=== PATIENT | male | born 1960 | race Caucasian/White ===

== ENCOUNTER 2022-10-31 11:30 | Inpatient (IN) | payer SELFPAY ==
[2022-10-31] MEDS ORDERED: ONDANSETRON 4 MG/2 ML VIAL IVP STA (12:17)
[2022-10-31] MEDS ORDERED: SODIUM CHLORIDE 0.9% 500 ML 500 ML IV STA (12:17)
[2022-10-31] MEDS ORDERED: fentaNYL (PF) 50 MCG/ML 2 ML AMP IVP STA ×2 (12:18→15:36)
--- NOTE | 2022-10-31 12:21 | ED ---
Abdominal Pain HPI - General Chief Complaint: Abdominal Pain Stated Complaint: Constipation Time Seen by Provider: 10/31/22 12:12 Source: patient, RN notes reviewed, old records reviewed Mode of arrival: ambulatory Limitations: no limitations - History of Present Illness Initial Comments: Nontoxic-appearing 61-year-old male presents to the emergency room ambulatory with complaints of abdominal pain with nausea since Saturday. Last bowel movement Saturday and states that he normally has a normal bowel movement every day and feels bloated and constipated. Did try Colace with no resolution in his symptoms. Does have chills with nausea now. States that the abdominal pain worse during drive to hospital. Denies any medical history. No medications on a daily basis. No surgeries in the past. MD Complaint: abdominal pain -: days(s) (3) Location: LLQ, RLQ Severity scale (1-10): 8 Quality: fullness Consistency: constant Improves With: nothing Associated Symptoms: nausea, chills, constipation Treatments Prior to Arrival: other (colace) - Related Data Home Medications Medication Instructions Recorded Confirmed No Known Home Medications 10/31/22 10/31/22 Allergies Allergy/AdvReac Type Severity Reaction Status Date / Time No Known Allergies Allergy Verified 10/31/22 16:01 Review of Systems ROS Statement: Those systems with pertinent positive or pertinent negative responses have been documented in the HPI. ROS Other: All systems not noted in ROS Statement are negative. Past Medical History Past Medical History: No Reported History History of Any Multi-Drug Resistant Organisms: None Reported Past Surgical History: No Surgical Hx Reported Past Psychological History: No Psychological Hx Reported Smoking Status: Never smoker Past Alcohol Use History: Occasional Past Drug Use History: None Reported General Exam Limitations: no limitations General appearance: alert, in no apparent distress Head exam: Present: atraumatic, normocephalic Eye exam: Present: normal appearance. Absent: scleral icterus, conjunctival injection, periorbital swelling ENT exam: Present: mucous membranes moist Neck exam: Present: normal inspection, full ROM. Absent: tenderness, meningismus Respiratory exam: Present: normal lung sounds bilaterally. Absent: respiratory distress, accessory muscle use Cardiovascular Exam: Present: tachycardia, irregular rhythm GI/Abdominal exam: Present: soft, distended (bladder, ultrasound of bladder performed by [facility] shows greater than 1000 mL ), tenderness (RLQ LLQ), other. Absent: guarding, rebound, rigid Extremities exam: Present: full ROM, normal capillary refill. Absent: tenderness, pedal edema Back exam: Present: full ROM. Absent: tenderness, CVA tenderness (R), CVA tenderness (L), rash noted Neurological exam: Present: alert, oriented X3, normal gait Psychiatric exam: Present: normal affect, normal mood Skin exam: Present: warm, dry, normal color. Absent: cyanosis, diaphoretic, petechiae, pallor Course Vital Signs 10/31/22 10/31/22 12:04 15:49 Temperature 98 F Pulse Rate 97 125 H Respiratory 16 19 Rate Blood Pressure 163/100 157/108 O2 Sat by Pulse 98 96 Oximetry Medical Decision Making - Medical Decision Making Was pt. sent in by a medical professional or institution ([facility], [facility], urgent care, hospital, or skilled nursing...) When possible be specific @ -[No] Did you speak to anyone other than the patient for history (EMS, parent, family, police, friend...)? What history was obtained from this source @ -[No] Did you review nursing and triage notes (agree or disagree)? Why? @ -[I reviewed and agree with nursing and triage notes] Were old charts reviewed (outside hosp., previous admission, EMS record, old EKG, old radiological studies, urgent care reports/EKG's, skilled nursing records)? Report findings @ -[No old charts were reviewed] Differential Diagnosis (chest pain, altered mental status, abdominal pain women, abdominal pain men, vaginal bleeding, weakness, fever, dyspnea, syncope, headache, dizziness, GI bleed, back pain, seizure, CVA, palpatations, mental health, musculoskeletal)? @ -Differential Abdominal Pain Men: Appendicitis, cholecystitis, diverticulosis, ischemic bowel, pancreatitis, hepatitis, UTI, gastroenteritis, AAA, incarcerated hernia, bowel obstruction, constipation, inflammatory bowel, hepatitis, peptic ulcer disease, splenic infarction, perforated viscus, testicular torsion, this is not meant to be an all-inclusive list EKG interpreted by me (3pts min.). @ -Yes EKG interpreted by me shows atrial flutter with a rapid ventricular rate of 117, QRS 0.91, QTC 0.359. No old EKG to compare. X-rays interpreted by me (1pt min.). @ -[None done] CT interpreted by me (1pt min.). @ -Yes CT shows markedly distended latter. Radiologist interpretation moderate bilateral hydronephrosis with hydroureter and distended bladder. Obstructing etiology not clearly identified. There may be small calcification in the distal left ureter. Free fluid in the retroperitoneal region adjacent to the left renal perinephric fat. U/S interpreted by me (1pt. min.). @ -[None done] What testing was considered but not performed or refused? (CT, X-rays, U/S, labs)? Why? @ -[None] What meds were considered but not given or refused? Why? @ -[None] Did you discuss the management of the patient with other professionals (professionals i.e. , PA, [employer], lab, RT, psych nurse, manager social services, belt weaver, teacher, transport corps officer, protective services case worker)? Give summary @ -[No] Was smoking cessation discussed for >3mins.? @ -[No] Was critical care preformed (if so, how long)? @ -[No] Were there social determinants of health that impacted care today? How? (Homelessness, low income, unemployed, alcoholism, drug addiction, transportation, low edu. Level, literacy, decrease access to med. care, shelter, rehab)? @ -[No] Was there de-escalation of care discussed even if they declined (Discuss DNR or withdrawal of care, Hospice)? DNR status @ -[No] What co-morbidities impacted this encounter? (DM, HTN, Smoking, COPD, CAD, Canc er, CVA, ARF, Chemo, Hep., AIDS, mental health diagnosis, sleep apnea, morbid obesity)? @ -[None] Was patient admitted / discharged? Hospital course, mention meds given and route, prescriptions, significant lab abnormalities, going to OR and other pertinent info. @ -Patient was admitted to the hospital new onset atrial flutter with rapid ve ntricular rate. He was started on Cardizem. Zosyn was started for his abdominal pain and concern for septic kidney stone. Labs show white blood cell count 18 with a left shift. BUN and creatinine 24 and 1.85 consistent with ERROL. Lactic acid 1.3. IV fluids given and zosyn given. EKG shows atrial flutter with rapid ventricular rate. Cardizem was started. Troponin negative at 0.012. Undiagnosed new problem with uncertain prognosis? @ -Atrial flutter with rapid ventricular response Drug Therapy requiring intensive monitoring for toxicity (Heparin, Nitro, Insulin, Cardizem)? @ -Cardizem Were any procedures done? @ -[No] Diagnosis/symptom? @ - Onset atrial flutter with rapid ventricular rate, urinary retention, hydronephrosis with calcification distal left ureter, free fluid in the retroperitoneal Acute, or Chronic, or Acute on Chronic? @ -Acute Uncomplicated (without systemic symptoms) or Complicated (systemic symptoms)? @ -Complicated Side effects of treatment? @ -[No] Exacerbation, Progression, or Severe Exacerbation? @ -[No] Poses a threat to life or bodily function? How? (Chest pain, [place], [place], pneumonia, PE, COPD, DKA, ARF, appy, cholecystitis, CVA, Diverticulitis, Homicidal, Suicidal, threat to staff... and all critical care pts) @ -He has new onset atrial flutter, free fluid in the retroperitoneal, hydronephrosis with concern for septic stone - Lab Data Result diagrams: 10/31/22 12:31 10/31/22 12:31 Lab Results 10/31/22 10/31/22 10/31/22 Range/Units 12:31 12:31 12:31 WBC 18.1 H (3.8-10.6) k/uL RBC 4.94 (4.30-5.90) m/uL Hgb 15.5 (13.0-17.5) gm/dL Hct 46.7 (39.0-53.0) % MCV 94.5 (80.0-100.0) fL MCH 31.4 (25.0-35.0) pg MCHC 33.2 (31.0-37.0) g/dL RDW 12.1 (11.5-15.5) % Plt Count 291 (150-450) k/uL MPV 7.7 Neutrophils % 87 % Lymphocytes % 4 % Monocytes % 8 % Eosinophils % 1 % Basophils % 0 % Neutrophils # 15.7 H (1.3-7.7) k/uL Lymphocytes # 0.7 L (1.0-4.8) k/uL Monocytes # 1.4 H (0-1.0) k/uL Eosinophils # 0.1 (0-0.7) k/uL Basophils # 0.0 (0-0.2) k/uL PT 10.5 (9.0-12.0) sec INR 1.0 (<1.2) APTT 23.3 (22.0-30.0) sec Sodium 136 L (137-145) mmol/L Potassium 4.4 (3.5-5.1) mmol/L Chloride 101 (98-107) mmol/L Carbon Dioxide 27 (22-30) mmol/L Anion Gap 8 mmol/L BUN 24 H (9-20) mg/dL Creatinine 1.85 H (0.66-1.25) mg/dL Est GFR (CKD-EPI)AfAm 45 (>60 ml/min/1.73 sqM) Est GFR (CKD-EPI)NonAf 39 (>60 ml/min/1.73 sqM) Glucose 120 H (74-99) mg/dL Plasma Lactic Acid Juan Francisco (0.7-2.0) mmol/L Calcium 9.6 (8.4-10.2) mg/dL Total Bilirubin 1.1 (0.2-1.3) mg/dL AST 29 (17-59) U/L ALT 19 (4-49) U/L Alkaline Phosphatase 101 (38-126) U/L Troponin I (0.000-0.034) ng/mL Total Protein 7.5 (6.3-8.2) g/dL Albumin 4.4 (3.5-5.0) g/dL Amylase 55 (30-110) U/L Lipase 75 (23-300) U/L 10/31/22 10/31/22 Range/Units 12:31 12:31 WBC (3.8-10.6) k/uL RBC (4.30-5.90) m/uL Hgb (13.0-17.5) gm/dL Hct (39.0-53.0) % MCV (80.0-100.0) fL MCH (25.0-35.0) pg MCHC (31.0-37.0) g/dL RDW (11.5-15.5) % Plt Count (150-450) k/uL MPV Neutrophils % % Lymphocytes % % Monocytes % % Eosinophils % % Basophils % % Neutrophils # (1.3-7.7) k/uL Lymphocytes # (1.0-4.8) k/uL Monocytes # (0-1.0) k/uL Eosinophils # (0-0.7) k/uL Basophils # (0-0.2) k/uL PT (9.0-12.0) sec INR (<1.2) APTT (22.0-30.0) sec Sodium (137-145) mmol/L Potassium (3.5-5.1) mmol/L Chloride (98-107) mmol/L Carbon Dioxide (22-30) mmol/L Anion Gap mmol/L BUN (9-20) mg/dL Creatinine (0.66-1.25) mg/dL Est GFR (CKD-EPI)AfAm (>60 ml/min/1.73 sqM) Est GFR (CKD-EPI)NonAf (>60 ml/min/1.73 sqM) Glucose (74-99) mg/dL Plasma Lactic Acid Juan Francisco 1.3 (0.7-2.0) mmol/L Calcium (8.4-10.2) mg/dL Total Bilirubin (0.2-1.3) mg/dL AST (17-59) U/L ALT (4-49) U/L Alkaline Phosphatase (38-126) U/L Troponin I <0.012 (0.000-0.034) ng/mL Total Protein (6.3-8.2) g/dL Albumin (3.5-5.0) g/dL Amylase (30-110) U/L Lipase (23-300) U/L - EKG Data -: EKG Interpreted by Me (Atrial flutter with ventricular rate of 117, QRS 0.91, QTC 0.359, [place]) Critical Care Time Critical Care Time: Yes Total Critical Care Time: 34 Disposition Clinical Impression: New onset atrial flutter, ERROL (acute kidney injury), Urinary retention Disposition: ADMITTED IP TO THIS [facility] Decision Date: 10/31/22 Decision Time: 15:09
[2022-10-31 12:49] LABS: Basophils % (A) 0 %; Eosinophils # (A) 0.1 k/uL (0-0.7); Eosinophils % (A) 1 %; HCT 46.7 % (39.0-53.0); HGB 15.5 gm/dL (13.0-17.5); Lymphocytes # (A) 0.7 k/uL (1.0-4.8); Lymphocytes % (A) 4 %; MCH 31.4 pg (25.0-35.0); MCHC 33.2 g/dL (31.0-37.0); MCV 94.5 fL (80.0-100.0); Mean Platelet Volume 7.7; Monocytes # (A) 1.4 k/uL (0-1.0); Monocytes % (A) 8 %; Neutrophils # (A) 15.7 k/uL (1.3-7.7); Neutrophils % (A) 87 %; Platelet Count 291 k/uL (150-450); RBC 4.94 m/uL (4.30-5.90); RDW 12.1 % (11.5-15.5); WBC 18.1 k/uL (3.8-10.6)
[2022-10-31 13:01] LABS: Albumin 4.4 g/dL (3.5-5.0); Calcium 9.6 mg/dL (8.4-10.2); Partial Thromboplastin Time 23.3 sec (22.0-30.0); Potassium 4.4 mmol/L (3.5-5.1); Prothrombin Time 10.5 sec (9.0-12.0); Total Bilirubin 1.1 mg/dL (0.2-1.3); Total Protein 7.5 g/dL (6.3-8.2)
[2022-10-31] MEDS ORDERED: PIPERACILLIN-TAZOBACTAM 3.375 GM in SODIUM CHLORIDE 0.9% 100 ML IVPB STA (13:02)
[2022-10-31] MEDS ORDERED: DILTIAZEM 5 MG/ML 5 ML VIAL IVP STA (13:02)
[2022-10-31] MEDS ORDERED: DILTIAZEM 125 MG in SODIUM CHLORIDE 0.9% 100 ML IV SCH (13:15)
--- NOTE | 2022-10-31 14:28 | CT ---
EXAMINATION TYPE: CT abdomen pelvis wo con DATE OF EXAM: 10/31/2022 COMPARISON: None INDICATION: Left lower quadrant pain DLP: 629.4 mGycm, Automated exposure control for dose reduction was used. CONTRAST: 0 mL of Isovue 300. Study performed without Oral Contrast TECHNIQUE: Axial images were obtained from above the diaphragm to the pubic rami in the axial plane a t 5 mm thick sections. Reconstructed images are reviewed on the computer in the coronal plane. FINDINGS: Limited CT sections are obtained the lung bases. The lung bases are clear. CT ABDOMEN: Liver: Normal Spleen: Normal Pancreas: Normal Adrenal glands: The adrenal glands are normal. Gallbladder: Normal Kidneys: No masses are evident. No hydronephrosis is present. There is a 5.5 cm cyst posterior late ral upper pole left kidney. There is moderate left hydronephrosis and hydroureter. Perinephric fluid is inferior to the left kidney. Moderate Right hydronephrosis is evident. No renal stones are identi fied. Aorta: Vascular calcification is within the aorta. Inferior vena cava: Normal. CT PELVIS: Loops of bowel within the abdomen and pelvis are normal. This study is without oral contrast limi ting bowel evaluation. Appendix: Normal as visualized. Urinary bladder: There is marked urinary distention. There is a punctate calcification which may be a t the left ureterovesical junction measuring 0.3 cm. This is difficult to confirm within the ureter a nd may be a phlebolith. Genitourinary structures: Some prosthetic prominence is present. Osseous structures: There is an area of sclerosis along the inferior aspect of the right pubic ramus. Series 201 image 88. Facet changes are within the lumbar spine. IMPRESSIONS: 1. Marked urinary bladder distention. 2. Moderate bilateral hydronephrosis with hydroureter. Obstructing etiology is not clearly identified . There may be a small calcification in the distal left ureter. 3. Free fluid in the retroperitoneal region adjacent to the left renal perinephric fat.
[2022-10-31] MEDS ORDERED: SODIUM CHLORIDE 0.9% 500 ML 500 ML IV ONE (15:08)
[2022-10-31] MEDS ORDERED: SODIUM CHLORIDE 0.9% 1,000 ML IV ONE (15:08)
[2022-10-31] MEDS ORDERED: NALOXONE 0.4 MG/ML 1 ML VIAL IV PRN (15:09)
[2022-10-31] MEDS ORDERED: ACETAMINOPHEN TAB 325 MG TAB PO PRN (15:09)
[2022-10-31 16:09] LABS: Appearance,Urine Clear (Clear); Bilirubin,Urine Negative (Negative); Blood,Urine Small (Negative); Color,Urine Yellow; Glucose,Urine (UA) Negative (Negative); Ketones,Urine Negative (Negative); Leukocyte Esterase,Urine Negative (Negative); Mucus,Urine Rare /hpf; Nitrite,Urine Negative (Negative); Protein,Urine Negative (Negative); RBC,Urine 2 /hpf (0-5); Specific Gravity,Urine 1.008 (1.001-1.035); Urobilinogen,Urine <2.0 mg/dL (<2.0); WBC,Urine 1 /hpf (0-5)
--- NOTE | 2022-10-31 17:02 | P.HPIM ---
History of Present Illness H&P Date: 10/31/22 Patient is a 61-year-old male with no significant past medical history presenting with abdominal discomfort. He claims since Saturday he has not had any bowel movement, and had only trickle of urine. He has also noticed increased lower abdominal discomfort. He denies any nausea or vomiting, chest pain, palpitations, shortness of breath, recent illnesses, recent procedures, fevers or chills. In the ED, temperature was 98, pulse rate 97, respiratory rate 16, blood pressure 163/100, 98% on room air. WBC 18.1, sodium 136, creatinine 1.85, lactate 1.3, troponin negative, lipase 75. Abdomen and pelvis CT shows marked urinary bladder distention, moderate bilateral hydronephrosis with hydroureter, may be a small calcification and distal left ureter, free fluid in the retroperi toneal region adjacent to left renal perinephric fat. EKG consistent with possible atrial tachycardia/atrial flutter. Patient was given IV fluids, Cardizem drip, and IV Zosyn in the ED. Blood cultures and urinalysis pending. Patient being admitted for sepsis likely secondary from urinary tract infection, urinary retention, acute kidney injury, possible atrial flutter. Pertinent positives and negatives as discussed in HPI, a complete review of systems was performed and all other systems are negative. Patient seen and examined at bedside. Vital signs reviewed General: nontoxic, no distress, appears at stated age Derm: warm, dry Head: atraumatic, normocephalic, symmetric Eyes: EOMI, no lid lag, anicteric sclera, pupils equal round reactive to light ENT: Nose and ears atraumatic Neck: No thyromegaly, supple Mouth: no lip lesion, mucus membranes moist Cardiovascular: S1S2 reg, no murmur, no edema Lungs: clear to auscultation bilateral, no rhonchi, no rales, no wheeze, no accessory muscle use Abdominal: soft, nontender to palpation, no guarding, no appreciable organomegaly Ext: no gross muscle atrophy, muscle strength muscle strength 5 out of 5 in all 4 extremities, no contractures Neuro: CN II-XII grossly intact Psych: Alert, oriented, appropriate affect Assessment/Plan: Active: SIRS, possibly in the setting of acute urinary retention Urinary retention Bilateral hydronephrosis with hydroureter Possible renal calculus Possible pyelonephritis Atrial tachycardia/atrial flutter Acute kidney injury -Given IV fluids in the ED, lactate normal -Urinalysis shows negative nitrites and leukocyte esterase -Blood cultures pending, monitor off of antibiotics for now -Urology consult -EKG independently interpreted, more consistent with atrial tachycardia -Patient is currently on Cardizem drip -His heart rate might improve with IV fluids -Cardiology consulted -Acute kidney injury likely in the setting of sepsis and postobstructive uropathy -Continue to monitor urine output and BMP The patient is admitted with an anticipated greater than 2 midnight stay as inpatient status for evaluation of sepsis. Surrogate decision-maker: Sibling CODE STATUS: Full code DVT prophylaxis: Subcu heparin Anticipated discharge date: Pending clinical course Anticipated discharge place: Pending clinical course A total of 65 minutes was spent on the care of this complex patient more than 50% of the time was spent in counseling and care coordination. Past Medical History Past Medical History: No Reported History History of Any Multi-Drug Resistant Organisms: None Reported Past Surgical History: No Surgical Hx Reported Past Psychological History: No Psychological Hx Reported Smoking Status: Never smoker Past Alcohol Use History: Occasional Past Drug Use History: None Reported Medications and Allergies Home Medications Medication Instructions Recorded Confirmed Type No Known Home Medications 10/31/22 10/31/22 History Allergies Allergy/AdvReac Type Severity Reaction Status Date / Time No Known Allergies Allergy Verified 10/31/22 16:01 Physical Exam Vitals: Vital Signs Temp Pulse Resp BP Pulse Ox 10/31/22 12:04 98 F 97 16 163/100 98 Intake and Output 10/31/22 10/31/22 10/31/22 06:59 14:59 22:59 Other: Weight 86.183 kg Results CBC & Chem 7: 10/31/22 12:31 10/31/22 12:31 Labs: Abnormal Lab Results - Last 24 Hours (Table) 10/31/22 10/31/22 Range/Units 12:31 12:31 WBC 18.1 H (3.8-10.6) k/uL Neutrophils # 15.7 H (1.3-7.7) k/uL Lymphocytes # 0.7 L (1.0-4.8) k/uL Monocytes # 1.4 H (0-1.0) k/uL Sodium 136 L (137-145) mmol/L BUN 24 H (9-20) mg/dL Creatinine 1.85 H (0.66-1.25) mg/dL Glucose 120 H (74-99) mg/dL
[2022-10-31] MEDS: SODIUM CHLORIDE 0.9% 1,000 ML IV SCH (19:10)
[2022-10-31] MEDS ORDERED: ASPIRIN 81 MG PO STA (19:59)
[2022-11-01] MEDS: SODIUM CHLORIDE 0.9% 1,000 ML IV SCH ×2 (02:29→16:15)
[2022-11-01 07:37] LABS: Basophils # (A) 0.1 k/uL (0-0.2); Basophils % (A) 0 %; Eosinophils # (A) 0.2 k/uL (0-0.7); Eosinophils % (A) 1 %; HCT 43.8 % (39.0-53.0); Lymphocytes % (A) 8 %; MCH 31.4 pg (25.0-35.0); MCHC 32.1 g/dL (31.0-37.0); MCV 97.8 fL (80.0-100.0); Mean Platelet Volume 7.7; Monocytes # (A) 1.2 k/uL (0-1.0); Monocytes % (A) 10 %; Neutrophils # (A) 9.9 k/uL (1.3-7.7); Neutrophils % (A) 79 %; Platelet Count 231 k/uL (150-450); RBC 4.48 m/uL (4.30-5.90); RDW 12.2 % (11.5-15.5); WBC 12.5 k/uL (3.8-10.6)
[2022-11-01 07:55] LABS: African American GFR (CKD) >90 (>60 ml/min/1.73 sqM); Anion Gap 9 mmol/L; Blood Urea Nitrogen 18 mg/dL (9-20); Calcium 8.4 mg/dL (8.4-10.2); Carbon Dioxide 23 mmol/L (22-30); Chloride 105 mmol/L (98-107); Glucose 92 mg/dL (74-99); Magnesium 1.8 mg/dL (1.6-2.3); Non-African American GFR(CKD) >90 (>60 ml/min/1.73 sqM); Potassium 4.1 mmol/L (3.5-5.1); Sodium 137 mmol/L (137-145)
--- NOTE | 2022-11-01 08:07 | P.GSCN ---
History of Present Illness Consult date: 11/01/22 History of present illness: 61 yo male who came to hospital with abdominal pain. thought he was constipated. Found to be in urine retention with secondary bilateral hydronephrosis. The urine is clear. Cr elevated at 1.8 probably secondary to retention. The patient has not seen a doctor in over 30 years. He has been having problems urinating over the last few months with decreased stream increased frequency. He denies blood in the urine. There's been no incontinence. He has not had a rectal examination years. The patient states there was over 2 L of urine drained from the bladder. Review of Systems All systems: negative - Constitutional Denies fever, Denies weight loss - EENT Eyes: denies blurred vision Ears, nose, mouth and throat: Denies dysphagia - Cardiovascular Denies chest pain, Denies shortness of breath - Respiratory Denies cough, Denies 7 - Gastrointestinal Reports as per HPI - Genitourinary Denies dysuria, Denies hematuria - Integumentary Denies rash, Denies unusual bruising - Neurological Denies headaches, Denies syncope - Hematologic/Lymphatic Denies easy bleeding, Denies easy bruising Past Medical History Past Medical History: No Reported History History of Any Multi-Drug Resistant Organisms: None Reported Past Surgical History: No Surgical Hx Reported Past Psychological History: No Psychological Hx Reported Smoking Status: Never smoker Past Alcohol Use History: Occasional Past Drug Use History: None Reported Medications and Allergies Home Medications Medication Instructions Recorded Confirmed Type No Known Home Medications 10/31/22 10/31/22 History Allergies Allergy/AdvReac Type Severity Reaction Status Date / Time No Known Allergies Allergy Verified 10/31/22 16:01 Surgical - Exam Vital Signs Temp Pulse Resp BP Pulse Ox 98 F 97 16 163/100 98 10/31/22 12:04 10/31/22 12:04 10/31/22 12:04 10/31/22 12:04 10/31/22 12:04 - General well developed, well nourished, no distress - Genitourinary Indwelling catheter with clear urine. Normal testes and epididymis. The prostate is 40/50 g enlarged with a very hard right side worrisome for carcinoma. Results - Labs 11/01/22 06:50 11/01/22 06:50 Abnormal Lab Results - Last 24 Hours (Table) 10/31/22 10/31/2210/31/23 Range/Units 12:31 12:31 15:49 WBC 18.1 H (3.8-10.6) k/uL Neutrophils # 15.7 H (1.3-7.7) k/uL Lymphocytes # 0.7 L (1.0-4.8) k/uL Monocytes # 1.4 H (0-1.0) k/uL Sodium 136 L (137-145) mmol/L BUN 24 H (9-20) mg/dL Creatinine 1.85 H (0.66-1.25) mg/dL Glucose 120 H (74-99) mg/dL Urine Blood Small H (Negative) Urine Mucus Rare H (None) /hpf Diabetes panel 10/31/22 Range/Units 12:31 Sodium 136 L (137-145) mmol/L Potassium 4.4 (3.5-5.1) mmol/L Chloride 101 (98-107) mmol/L Carbon Dioxide 27 (22-30) mmol/L BUN 24 H (9-20) mg/dL Creatinine 1.85 H (0.66-1.25) mg/dL Glucose 120 H (74-99) mg/dL Calcium 9.6 (8.4-10.2) mg/dL AST 29 (17-59) U/L ALT 19 (4-49) U/L Alkaline Phosphatase 101 (38-126) U/L Total Protein 7.5 (6.3-8.2) g/dL Albumin 4.4 (3.5-5.0) g/dL Calcium panel 10/31/22 Range/Units 12:31 Calcium 9.6 (8.4-10.2) mg/dL Albumin 4.4 (3.5-5.0) g/dL Pituitary panel 10/31/22 Range/Units 12:31 Sodium 136 L (137-145) mmol/L Potassium 4.4 (3.5-5.1) mmol/L Chloride 101 (98-107) mmol/L Carbon Dioxide 27 (22-30) mmol/L BUN 24 H (9-20) mg/dL Creatinine 1.85 H (0.66-1.25) mg/dL Glucose 120 H (74-99) mg/dL Calcium 9.6 (8.4-10.2) mg/dL Adrenal panel 10/31/22 Range/Units 12:31 Sodium 136 L (137-145) mmol/L Potassium 4.4 (3.5-5.1) mmol/L Chloride 101 (98-107) mmol/L Carbon Dioxide 27 (22-30) mmol/L BUN 24 H (9-20) mg/dL Creatinine 1.85 H (0.66-1.25) mg/dL Glucose 120 H (74-99) mg/dL Calcium 9.6 (8.4-10.2) mg/dL Total Bilirubin 1.1 (0.2-1.3) mg/dL AST 29 (17-59) U/L ALT 19 (4-49) U/L Alkaline Phosphatase 101 (38-126) U/L Total Protein 7.5 (6.3-8.2) g/dL Albumin 4.4 (3.5-5.0) g/dL - Imaging CT scan - abdomen: report reviewed, image reviewed CT scan - pelvis: report reviewed, image reviewed Assessment and Plan Assessment: Impression: Urinary retention. Bilateral hydronephrosis secondary to urine retention. Prostate examination worrisome for prostate cancer. Cardiac arrhythmia. Acute renal failure due to urine retention. Recommendations: I will obtain a PSA. He'll be started on tamsulosin. A voiding trial can be done in 48 hours to 1 week depending on his status. He is very anxious to leave the hospital as he has social issues however I did explain to him there is concern for cardiac issues level of his prostate problems which she'll probably eventually need an ultrasound and biopsy of the prostate. I will follow the patient with you.
[2022-11-01] MEDS: TAMSULOSIN 0.4 MG CAP.ER.24H PO SCH (08:19)
[2022-11-01] MEDS: METOPROLOL SUCCINATE (ER) 50 MG TAB.ER.24H PO SCH (10:43)
--- NOTE | 2022-11-01 13:17 | P.CRDCN ---
History of Present Illness Consult date: 11/01/22 Consult reason: atrial flutter History of present illness: History of present illness: This is a 61 year old male with no previous medical history, has not followed with a doctor in over 30 years. Patient states he came into the hospital due to inability to have a bowel movement or urinate with onset of problems starting Saturday. He states he has had a few episodes over the years with urinary retention but it's only briefly lasted and resolved on its own. Patient had Adams catheter placed with return of 2 L of urine. He was found to have a blood pressure of 163/100 on initial presentation and there was concern the patient had atrial flutter on EKG. Patient denies having any chest pain, no shortness of breath, no cardiac history. He has never been seen by astronomy teacher. He states he is very active and is currently remodeling a home and up and down stairs throughout the day. Patient has been started on Cardizem drip and a heart rate is now 78-92. EKG atrial fibrillation CAT scan of the abdomen and pelvis without contrast revealed urinary bladder distention, moderate bilateral hydronephrosis with hydroureter oh. Obstructing etiology is not clearly identified. Small calcification in the distal left ureter. Free fluid in the retroperitoneal region adjacent to the left renal. Nephric fat. WBC initially 18.1 now 12.5, hemoglobin 14, platelet count 231. Electrolytes and renal function are now normal. Patient presented with a BUN 24 and creatinine 1.85. Troponin negative 1. TSH 1.51. Liver function tests are nor mal. Urinalysis shows small amount of ketones and rare mucus. Home cardiac medications: None Review Of Systems: At the time of my evaluation: Constitutional: No fever, no chills. No weakness, fatigue or lethargy. EENT: No headache. No dizziness. Lungs: No shortness of breath, cough, no sputum production. No wheezing. Cardiovascular: No chest pain, no lower extremity edema. No palpitations. No paroxysmal nocturnal dyspnea. No orthopnea. No lightheadedness or dizziness. No syncopal episodes. Abdominal: No abdominal pain. No nausea, vomiting. No diarrhea. No constipation. No bloody or tarry stools. Genitourinary: No dysuria reported urinary retention-Adams. Musculoskeletal: No myalgias. No muscle weakness, no frequent falls. No back pain. No neck pain. Integumentary: No wounds. No rash. No unusual bruising. Neurologic: No aphasia. No facial droop. No change in mentation. No head injury. No headache. Physical examination: Gen: This is a 61-year-old male patient resting on ER stretcher. He appears to be in no acute distress. VS: reviewed HEENT: Head is atraumatic, normocephalic. Pupils equal, round. Sclerae is anicteric. NECK: Supple. No JVD. . LUNGS: Clear to auscultation. No wheezes or rhonchi. No intercostal retractions. HEART: Regular rate and rhythm. No murmur. ABDOMEN: Soft No tenderness. Adams catheter with clear jose urine. EXTREMITIES: No pedal edema. No calf tenderness. NEUROLOGICAL: Patient is awake, alert and oriented x3. Assessment: Atrial fibrillation presented with RVR Hypertension possibly related to urinary retention Leukocytosis Acute kidney injury secondary to obstructive uropathy Plan: Discontinue Cardizem drip and start patient on Toprol-XL 50 mg daily Monitor heart rate/telemetry Obtain 2-D echocardiogram and Doppler study to assess cardiac structure and function Further recommendations to follow based upon clinical course Thank you kindly for this consultation. Nurse practitioner note has been reviewed, I agree with documented findings and plan of care. Patient was seen and examined. Past Medical History Past Medical History: No Reported History History of Any Multi-Drug Resistant Organisms: None Reported Past Surgical History: No Surgical Hx Reported Past Psychological History: No Psychological Hx Reported Smoking Status: Never smoker Past Alcohol Use History: Occasional Past Drug Use History: None Reported Medications and Allergies Home Medications Medication Instructions Recorded Confirmed Type No Known Home Medications 10/31/22 10/31/22 History Allergies Allergy/AdvReac Type Severity Reaction Status Date / Time No Known Allergies Allergy Verified 10/31/22 16:01 Physical Exam Vitals: Vital Signs Temp Pulse Resp BP Pulse Ox 11/01/22 06:00 78 18 107/67 94 L 11/01/22 05:00 80 17 98/68 93 L 11/01/22 04:00 88 17 91/65 94 L 11/01/22 03:30 81 15 101/68 95 11/01/22 03:00 93 16 97/63 93 L 11/01/22 02:30 89 16 104/67 94 L 11/01/22 02:00 97 14 107/72 96 11/01/22 01:30 92 18 99/62 92 L 11/01/22 01:00 98 21 111/64 94 L 11/01/22 00:30 109 H 19 105/67 94 L 11/01/22 00:00 84 18 103/68 96 10/31/22 23:30 97 16 118/69 95 10/31/22 23:00 101 H 20 113/66 94 L 10/31/22 22:30 100 16 108/70 93 L 10/31/22 22:00 93 18 109/69 96 10/31/22 21:30 105 H 16 108/77 94 L 10/31/22 21:00 96 19 120/73 96 10/31/22 20:30 101 H 18 119/73 98 10/31/22 20:21 97 17 102/56 96 10/31/22 20:20 102 H 19 102/56 96 10/31/22 20:10 106 H 19 118/74 97 10/31/22 20:00 109 H 18 118/69 97 10/31/22 19:36 91 16 122/86 97 10/31/22 19:35 98 18 122/86 97 10/31/22 15:49 125 H 19 157/108 96 10/31/22 12:04 98 F 97 16 163/100 98 Intake and Output 10/31/22 11/01/22 11/01/22 22:59 06:59 14:59 Output Total 1025 Balance -1025 Output: Urine 1025 Results 11/01/22 06:50 11/01/22 06:50 Cardiac Enzymes 10/31/22 10/31/22 Range/Units 12:31 12:31 AST 29 (17-59) U/L Troponin I <0.012 (0.000-0.034) ng/mL Coagulation 10/31/22 Range/Units 12:31 PT 10.5 (9.0-12.0) sec APTT 23.3 (22.0-30.0) sec CBC 10/31/22 11/01/22 Range/Units 12:31 06:50 WBC 18.1 H 12.5 H (3.8-10.6) k/uL RBC 4.94 4.48 (4.30-5.90) m/uL Hgb 15.5 14.0 (13.0-17.5) gm/dL Hct 46.7 43.8 (39.0-53.0) % Plt Count 291 231 (150-450) k/uL Comprehensive Metabolic Panel 10/31/22 11/01/22 Range/Units 12:31 06:50 Sodium 136 L 137 (137-145) mmol/L Potassium 4.4 4.1 (3.5-5.1) mmol/L Chloride 101 105 (98-107) mmol/L Carbon Dioxide 27 23 (22-30) mmol/L BUN 24 H 18 (9-20) mg/dL Creatinine 1.85 H 0.78 (0.66-1.25) mg/dL Glucose 120 H 92 (74-99) mg/dL Calcium 9.6 8.4 (8.4-10.2) mg/dL AST 29 (17-59) U/L ALT 19 (4-49) U/L Alkaline Phosphatase 101 (38-126) U/L Total Protein 7.5 (6.3-8.2) g/dL Albumin 4.4 (3.5-5.0) g/dL Current Medications Generic Name Dose Route Start Last Admin Trade Name Freq PRN Reason Stop Dose Admin Acetaminophen 650 mg 10/31/22 15:09 Acetaminophen Tab 325 Mg Tab PO Q6HR PRN Mild Pain or Fever > 100.5 Diltiazem HCl 125 mg/ Sodium 125 mls @ 5 mls/hr 10/31/22 13:15 10/31/22 14:16 Chloride IV 5 mg/hr .Q24H ALEKS 5 mls/hr Administration 5 MG/HR Sodium Chloride 1,000 mls @ 75 mls/hr 10/31/22 13:30 11/01/22 02:29 Saline 0.9% IV Not Given .[id number] ALEKS Naloxone HCl 0.2 mg 10/31/22 15:09 Naloxone 0.4 Mg/Ml 1 Ml Vial IV Q2M PRN Opioid Reversal Tamsulosin HCl 0.4 mg 11/01/22 08:30 11/01/22 08:19 Tamsulosin 0.4 Mg Cap.Er.24h PO 0.4 mg PC-BRKFST ALEKS Administration Intake and Output 10/31/22 11/01/22 11/01/22 22:59 06:59 14:59 Output Total 1025 Balance -1025 Output: Urine 1025 11/01/22 06:50 11/01/22 06:50
--- NOTE | 2022-11-01 14:26 | P.PN ---
Subjective Progress Note Date: 11/01/22 Hospital Course: 61-year-old male with no significant past medical history presenting with abdominal discomfort. He claims since Saturday he has not had any bowel movement, and had only trickle of urine. In the ED, temperature was 98, pulse rate 97, respiratory rate 16, blood pressure 163/100, 98% on room air. WBC 18.1, sodium 136, creatinine 1.85, lactate 1.3, troponin negative, lipase 75. Abdomen and pelvis CT shows marked urinary bladder distention, moderate bilateral hydronephr osis with hydroureter, may be a small calcification and distal left ureter, free fluid in the retroperitoneal region adjacent to left renal perinephric fat. EKG consistent with possible atrial tachycardia/atrial flutter. Patient was given IV fluids, Cardizem drip, and IV Zosyn in the ED. Patient being admitted for sepsis likely secondary from urinary tract infection, urinary retention, acute kidney injury, possible atrial flutter. Urology and cardiology consulted. Urology urology concerned about prostate cancer. Cardiology also consulted. Likely atrial fibrillation with RVR. Cardizem discontinued, started on metoprolol. Echocardiogram pending. Subjective: Seen and examined at bedside. Currently has a urinary catheter in place. Abdominal discomfort improved. Denies any chest pain, shortness of breath. Pertinent positives and negatives as discussed above, a complete review of systems was performed and all other systems are negative. Vitals Signs Reviewed. General: nontoxic, no distress, appears at stated age Derm: warm, dry Head: atraumatic, normocephalic, symmetric Eyes: EOMI, no lid lag, anicteric sclera Mouth: no lip lesion, mucus membranes moist Cardiovascular: S1S2 irregular, no murmur Lungs: CTA bilateral, no rhonchi, no rales , no accessory muscle use Abdominal: soft, nontender to palpation, no guarding, no appreciable organomegaly Ext: no gross muscle atrophy, no edema, no contractures Neuro: CN II-XI grossly intact, no focal neuro deficits Psych: Alert, oriented, appropriate affect Data Reviewed Today: Pertinent Labs: WBC 12.5, creatinine 0.78, magnesium 1.8, TSH 1.5 Assessment and Plan: Active: Acute Urinary retention Bilateral hydronephrosis with hydroureter Enlarged prostate Atrial fibrillation with RVR -Urology note reviewed, prostrate exam worrisome for breast cancer, started on tamsulosin warding trial can be done in 48 hours to 1 week, likely needed ultrasound and biopsy of prostrate as outpatient. -Cardiology note reviewed, patient started on metoprolol, diltiazem drip discontinued, echocardiogram pending Resolved: Acute kidney injury SIRS DVT ppx: Subcu heparin Code status: Full code Anticipated discharge place: Home Anticipated discharge time: 1-2 days Objective - Vital Signs Vital signs: Vital Signs Temp 98 F 10/31/22 12:04 Pulse 92 11/01/22 10:41 Resp 18 11/01/22 10:41 BP 104/66 11/01/22 10:41 Pulse Ox 96 11/01/22 10:41 FiO2 Intake & Output 10/31/22 11/01/22 11/01/22 18:59 06:59 18:59 Output Total 1025 Balance -1025 Weight 86.183 kg Output: Urine 1025 - Labs CBC & Chem 7: 11/01/22 06:50 11/01/22 06:50 Labs: Abnormal Lab Results - Last 24 Hours (Table) 10/31/22 11/01/22 Range/Units 15:49 06:50 WBC 12.5 H (3.8-10.6) k/uL Neutrophils # 9.9 H (1.3-7.7) k/uL Monocytes # 1.2 H (0-1.0) k/uL Urine Blood Small H (Negative) Urine Mucus Rare H (None) /hpf
--- NOTE | 2022-11-02 07:36 | CA ---
Transthoracic Echo Report Name: Sebastian Melchor Age: 61 Gender: M : 1960 Exam Date: 11/01/2022 12:54 Exam Location: [facility] Ht (in): 72 Wt (lb): 190 Ordering Physician: Bridgette Chung Attending/Referring Phys: Foundry Superintendant Aiden Sheehan RDCS Procedure CPT: Indications: LVF Cardiac Hx: Technical Quality: Fair Contrast 1: Total Dose (mL): Contrast 2: Total Dose (mL): MEASUREMENTS (Male / Female) Normal Values 2D ECHO LV Diastolic Diameter PLAX 4.3 cm 4.2 - 5.9 / 3.9 - 5.3 cm LV Systolic Diameter PLAX 3.4 cm LV Fractional Shortening PLAX 20.5 % IVS Diastolic Thickness 0.9 cm 0.6 - 1.0 / 0.6 - 0.9 cm IVS Systolic Thickness 1.2 cm LVPW Diastolic Thickness 0.8 cm 0.6 - 1.0 / 0.6 - 0.9 cm LVPW Systolic Thickness 1.5 cm LV Relative Wall Thickness 0.4 LVOT Diameter 2.2 cm LA Systolic Diameter LX 3.0 cm 3.0 - 4.0 / 2.7 - 3.8 cm LV Diastolic Volume MOD BP 106.3 cm??? 67 - 155 / 56 - 104 cm??? LV Systolic Volume MOD BP 61.0 cm??? 22 - 58 / 19 - 49 cm??? LV Ejection Fraction MOD BP 42.6 % >= 55 % LV Stroke Volume MOD BP 45.3 cm??? LV Diastolic Volume MOD 4C 96.9 cm??? LV Systolic Volume MOD 4C 53.3 cm??? LV Ejection Fraction MOD 4C 45.0 % LV Stroke Volume MOD 4C 43.7 cm??? LV Diastolic Length 4C 8.7 cm LV Systolic Length 4C 7.2 cm LV Diastolic Volume MOD 2C 116.3 cm??? LV Systolic Volume MOD 2C 63.7 cm??? LV Ejection Fraction MOD 2C 45.2 % LV Stroke Volume MOD 2C 52.6 cm??? LV Diastolic Length 2C 8.8 cm LV Systolic Length 2C 8.0 cm M-MODE Aortic Root Diameter MM 3.6 cm LA Systolic Diameter MM 4.4 cm LA Ao Ratio MM 1.2 MV E Point Septal Separation 1.4 cm AV Cusp Separation MM 2.0 cm DOPPLER AV Peak Velocity 94.7 cm/s AV Peak Gradient 3.6 mmHg MV E' Velocity 5.6 cm/s TR Peak Velocity 208.6 cm/s TR Peak Gradient 17.4 mmHg Right Ventricular Systolic Press 27.4 mmHg PV Peak Velocity 70.6 cm/s PV Peak Gradient 2.0 mmHg FINDINGS Left Ventricle Left ventricular ejection fraction is estimated at 40 %. Abnormal left ventricular diastolic filling pattern. Reduced global left ventricular systolic function. Right Ventricle Mild right ventricular dilatation. RVSP_ 27 mm Hg. Right Atrium Mild right atrial dilatation. Left Atrium Normal left atrial size. Mitral Valve Structurally normal mitral valve. No mitral stenosis, regurgitation or prolapse. Aortic Valve Trileaflet aortic valve. Diffuse thickening (sclerosis) of the aortic valve cusps without reduced excursion. No aortic regurgitation. No aortic stenosis. Tricuspid Valve Mild tricuspid regurgitation. Pulmonic Valve Pulmonic valve not well visualized. Pericardium Normal pericardium. No pericardial effusion. Aorta Mild aortic dilatation at the level of the sinuses of valsalva (root). CONCLUSIONS Left ventricular ejection fraction 40% RVSP 27 No mitral regurgitation Mild tricuspid regurgitation No pericardial effusion Previewed by: Dr. Ant Wilkins DO (Electronically Signed) Final Date: 02 Nov 2022 07:35
--- NOTE | 2022-11-02 08:07 | P.PN ---
Subjective Progress Note Date: 11/02/22 The patient is in the hospital with abdominal pain which is resolved once the catheter was placed. He is found to over 2 L of urine retention. He feels much better. His prostate was found to be quite enlarged and very hard worrisome for prostate cancer. PSA is ordered but has not been done as of yet Objective - Vital Signs Vital signs: Vital Signs Temp 98.2 F 11/02/22 04:00 Pulse 96 11/02/22 04:00 Resp 18 11/02/22 04:00 BP 111/68 11/02/22 04:00 Pulse Ox 96 11/02/22 04:00 FiO2 Intake & Output 11/01/22 11/02/22 11/02/22 18:59 06:59 18:59 Intake Total 120 Output Total 1400 1350 Balance -1280 -1350 Weight 86.183 kg Intake: Oral 120 Output: Urine 1400 1350 Other: Voiding Method Indwelling Catheter Indwelling Catheter # Voids 1 - Labs CBC & Chem 7: 11/01/22 06:50 11/01/22 06:50 Assessment and Plan Assessment: Impression: Urine retention causing abdominal pain resolved. Cardiac arrhythmia being evaluated. Recommendations: If the patient goes home he should go home with indwelling catheter. I spoken with the nurse to make sure the PSA gets done prior to discharge.. Depending on the level of the PSA as to how I might manage his urine retention. I suspect he has prostate cancer and will need an ultrasound biopsy to clarify that. Is been discussed with the patient.
[2022-11-02] MEDS: TAMSULOSIN 0.4 MG CAP.ER.24H PO SCH (08:41)
[2022-11-02] MEDS: METOPROLOL SUCCINATE (ER) 50 MG TAB.ER.24H PO SCH (08:41)
[2022-11-02 08:47] VITALS: TEMP 97.9
[2022-11-02 11:51] VITALS: BP 110/78; PULSE 96; RESP 16
[2022-11-02] MEDS ORDERED: METOPROLOL SUCCINATE (ER) 25 MG TAB.ER.24H PO STA (11:51)
--- NOTE | 2022-11-02 12:18 | P.PN ---
Subjective Progress Note Date: 11/02/22 History of present illness: This is a 61 year old male with no previous medical history, has not followed with a doctor in over 30 years. Patient states he came into the hospital due to inability to have a bowel movement or urinate with onset of problems starting Saturday. He states he has had a few episodes over the years with urinary retention but it's only briefly lasted and resolved on its own. Patient had Adams catheter placed with return of 2 L of urine. He was found to have a blood pressure of 163/100 on initial presentation and there was concern the patient had atrial flutter on EKG. Patient denies having any chest pain, no shortness of breath, no cardiac history. He has never been seen by security escort. He states he is very active and is currently remodeling a home and up and down s tairs throughout the day. Patient has been started on Cardizem drip and a heart rate is now 78-92. EKG atrial fibrillation CAT scan of the abdomen and pelvis without contrast revealed urinary bladder distention, moderate bilateral hydronephrosis with hydroureter oh. Obstructing etiology is not clearly identified. Small calcification in the distal left ureter. Free fluid in the retroperitoneal region adjacent to the left renal. Nephric fat. WBC initially 18.1 now 12.5, hemoglobin 14, platelet count 231. Electrolytes and renal function are now normal. Patient presented with a BUN 24 and creatinine 1.85. Troponin negative 1. TSH 1.51. Liver function tests are normal. Urinalysis shows small amount of ketones and rare mucus. Home cardiac medications: None 11/02 Patient is seen today in follow-up. Patient is maintained on Toprol-XL 50 mg and heart rate is running 100 106. He denies having any chest pain or shortness of breath. Telemetry atrial fibrillation low 100s. Echocardiogram reveals EF of 40%, RVSP 27, no mitral regurgitation, mild tricuspid regurgitation, no pericardial effusion. Physical examination: Gen: This is a 61-year-old male patient resting in chair. He appears to be in no acute distress. VS: reviewed HEENT: Head is atraumatic, normocephalic. Pupils equal, round. Sclerae is anicteric. NECK: Supple. No JVD. . LUNGS: Clear to auscultation. No wheezes or rhonchi. No intercostal retractions. HEART: Regular rate and rhythm. No murmur. ABDOMEN: Soft No tenderness. Adams catheter with clear jose urine. EXTREMITIES: No pedal edema. No calf tenderness. NEUROLOGICAL: Patient is awake, alert and oriented x3. Assessment: Atrial fibrillation presented with RVR, possible paroxysmal, unknown how long patient has been in atrial fibrillation Hypertension possibly related to urinary retention Leukocytosis Acute kidney injury secondary to obstructive uropathy Possible prostate cancer being worked up by urology Plan: Continue patient on Toprol-XL and increase to 75 mg daily Regarding anticoagulation, patient will be started on eliquis 5 mg twice daily Obtain lipid panel and A1c Patient will follow-up with Dr. Ibrahim in the office in one week. Is cleared for discharge from cardiology. Nurse practitioner note has been reviewed, I agree with documented findings and plan of care. Patient was seen and examined. Objective - Vital Signs Vital signs: Vital Signs Temp 97.9 F 11/02/22 08:47 Pulse 106 H 11/02/22 08:47 Resp 17 11/02/22 08:47 BP 108/66 11/02/22 08:47 Pulse Ox 97 11/02/22 08:47 FiO2 Intake & Output 11/01/22 11/02/22 11/02/22 18:59 06:59 18:59 Intake Total 120 118 Output Total 1400 1350 Balance -1280 -1350 118 Weight 86.183 kg Intake: Oral 120 118 Output: Urine 1400 1350 Other: Voiding Method Indwelling Catheter Indwelling Catheter Indwelling Catheter # Voids 1 - Labs CBC & Chem 7: 11/01/22 06:50 11/01/22 06:50 Labs: Microbiology - Last 24 Hours (Table) 10/31/22 13:37 Blood Culture - Preliminary Blood 10/31/22 13:42 Blood Culture - Preliminary Blood
--- NOTE | 2022-11-02 12:34 | P.DS ---
Providers Date of admission: 10/31/22 15:00 Expected date of discharge: 11/02/22 Attending physician: Reji Casey MD Consults: 10/31/22 15:09 Consult Physician Routine Consulting Provider: Eder Green Consult Reason/Comments: urinary retention, hydronephrosis, ERROL Do you want consulting provider notified?: Yes, Notify in am 10/31/22 16:57 Consult Physician Routine Consulting Provider: Kyle Cano Consult Reason/Comments: possible atrial flutter Do you want consulting provider notified?: Yes Primary care physician: Stated None Hospital Course: Discharge Diagnosis: Acute Urinary retention Bilateral hydronephrosis with hydroureter Enlarged prostate SIRS, without infection Atrial fibrillation with RVR Mild systolic heart failure Hospital Course: 61-year-old male with no significant past medical history presenting with abdominal discomfort. He claims since Saturday he has not had any bowel movement, and had only trickle of urine. In the ED, temperature was 98, pulse rate 97, respiratory rate 16, blood pressure 163/100, 98% on room air. WBC 18.1, sodium 136, creatinine 1.85, lactate 1.3, troponin negative, lipase 75. Abdomen and pelvis CT shows marked urinary bladder distention, moderate bilateral hydronephrosis with hydroureter, may be a small calcification and distal left ureter, free fluid in the retroperitoneal region adjacent to left renal perinephric fat. EKG consistent with possible atrial tachycardia/atrial flutter. Patient was given IV fluids, Cardizem drip, and IV Zosyn in the ED. Patient being admitted for sepsis likely secondary from urinary tract infection, urinary retention, acute kidney injury, possible atrial flutter. Urology and cardiology consulted. Urology urology concerned about prostate cancer. Patient to be discharged with Adams catheter. PSA level still pending. Patient follow- up with urology outpatient. Cardiology also consulted. Likely atrial fibrillation with RVR. Cardizem discontinued, started on metoprolol. Echocardiogram showed mildly reduced LVEF of 40%, RVSP 27. Patient being discharged on metoprolol succinate, and also low-dose of lisinopril. He is also being discharged on Eliquis. He will also follow-up with cardiology. Patient seen and examined at bedside. Vital signs reviewed and stable. General: nontoxic, no distress, appears at stated age Derm: warm, dry Head: atraumatic, normocephalic, symmetric Eyes: EOMI, no lid lag, anicteric sclera Mouth: no lip lesion, mucus membranes moist Cardiovascular: S1S2 reg, no murmur Lungs: CTA bilateral, no rhonchi, no rales , no accessory muscle use Abdominal: soft, nontender to palpation, no guarding, no appreciable organomegaly Ext: no gross muscle atrophy, no edema, no contractures Neuro: CN II-XI grossly intact, no focal neuro deficits Psych: Alert, oriented, appropriate affect A total of 36 minutes of time were spent preparing this complex discharge summary. Patient was discharged on 11/02/22 at 12:26. Patient Condition at Discharge: Stable Plan - Discharge Summary Discharge Rx Participant: No New Discharge Prescriptions: New Apixaban [Eliquis] 5 mg PO BID #60 tab Tamsulosin [Flomax] 0.4 mg PO PC-BRKFST #60 cap Metoprolol Succinate (ER) [Toprol XL] 75 mg PO DAILY #60 tab lisinopriL 2.5 mg PO DAILY #30 tablet Discharge Medication List Apixaban [Eliquis] 5 mg PO BID #60 tab 11/02/22 [Rx] Metoprolol Succinate (ER) [Toprol XL] 75 mg PO DAILY #60 tab 11/02/22 [Rx] Tamsulosin [Flomax] 0.4 mg PO PC-BRKFST #60 cap 11/02/22 [Rx] lisinopriL 2.5 mg PO DAILY #30 tablet 11/02/22 [Rx] Follow up Appointment(s)/Referral(s): Angelo Ibrahim MD [STAFF PHYSICIAN] - 1 Week None,Stated [Primary Care Provider] - 1-2 days Eder Green MD [STAFF PHYSICIAN] - 1 Week Patient Instructions/Handouts: A-fib (Atrial Fibrillation) (DC), Acute Kidney Injury (DC), Urinary Retention in Men (ED) Discharge Disposition: HOME SELF-CARE
[2022-11-02 15:14] LABS: Chol/HDL Ratio 3.14 Ratio; LDL Cholesterol,Calculated 88.6 mg/dL (0.0-131.0); VLDL Calculation 16.42 mg/dL (5.00-40.00)
[2022-11-02] MEDS ORDERED: APIXABAN 5 MG TAB PO SCH (21:00)
[2022-11-03] MEDS ORDERED: METOPROLOL SUCCINATE (ER) 25 MG TAB.ER.24H PO SCH (09:00)
== END 2022-11-02 15:26 | disposition home or self-care (01) | DRG 872 ==
LOC: EDBD 11:30 → EC 11:30 → 3SCARD 15:00
PROVIDERS: ADMIT Student in an Organized Health Care Education/Training Program; ATTEND Student in an Organized Health Care Education/Training Program
DX: A41.9 Sepsis, unspecified organism (principal); N13.6 Pyonephrosis; I48.92 Unspecified atrial flutter; I50.22 Chronic systolic (congestive) heart failure; I47.1 Supraventricular tachycardia; N17.9 Acute kidney failure, unspecified; I48.91 Unspecified atrial fibrillation; I11.0 Hypertensive heart disease with heart failure; N40.0 Benign prostatic hyperplasia without lower urinary tract symptoms; I77.810 Thoracic aortic ectasia; R33.8 Other retention of urine; F10.20 Alcohol dependence, uncomplicated; I48.0 Paroxysmal atrial fibrillation; I08.1 Rheumatic disorders of both mitral and tricuspid valves; Z85.3 Personal history of malignant neoplasm of breast
CPT/HCPCS: 36415; 74176; 80048; 80053; 80061; 81001; 82150; 83036; 83605; 83690; 83735; 84153; 84154; 84443; 84484; 85025; 85610; 85730; 93005; 93306

== ENCOUNTER → 2023-01-10 | Outpatient (CLI) | payer MEDICAID ==
--- NOTE | 2023-01-10 07:53 | XR ---
EXAMINATION TYPE: XR chest 2V DATE OF EXAM: 01/10/2023 7:47 AM COMPARISON: No direct comparisons TECHNIQUE: XR chest 2V Frontal and lateral views of the chest. CLINICAL INDICATION:Male, 62 years old with history of C61 prostate ca; FINDINGS: Lungs/Pleura: There is no evidence of pleural effusion, focal consolidation, or pneumothorax. Hyperi nflation with flattening of the diaphragm. Pulmonary vascularity: Unremarkable. Heart/mediastinum: Cardiomediastinal silhouette is unremarkable. Musculoskeletal: No acute osseous pathology. Chronic appearing mild anterior wedging of the midthorac ic spine. IMPRESSION: 1. No acute cardiopulmonary disease/process. 2. Chronic appearing mild anterior wedging of the midthoracic spine. 3. Possible COPD changes.
[2023-01-10 08:41] LABS: African American GFR (CKD) >90 (>60 ml/min/1.73 sqM); Blood Urea Nitrogen 21 mg/dL (9-20); Non-African American GFR(CKD) >90 (>60 ml/min/1.73 sqM)
--- NOTE | 2023-01-10 10:19 | CT ---
EXAMINATION TYPE: CT abdomen pelvis w con CT DLP: 804.4 mGycm, Automated exposure control for dose reduction was used. DATE OF EXAM: 01/10/2023 10:06 AM COMPARISON: CT abdomen pelvis most recent from 10/31/2022. CLINICAL INDICATION:Male, 62 years old with history of C61 prostate ca; Follow up for prostate cancer . TECHNIQUE: Standard CT of the abdomen and pelvis following the administration of 100 cc of Isovue 3 00 IV contrast material and oral contrast. Coronal and sagittal reformats were performed. FINDINGS: LOWER CHEST: Unremarkable ABDOMEN LIVER: Peripherally enhancing right hepatic lobe 2.6 cm hypodense lesion (series 3, image 14). GALLBLADDER AND BILE DUCTS: Unremarkable. PANCREAS: Unremarkable. SPLEEN: Unremarkable. ADRENAL GLANDS: Unremarkable. KIDNEYS AND URETERS: No evidence of hydronephrosis or renal calculus. Kidneys enhance symmetrically. Bilateral renal cysts with largest in the superior pole of the left kidney measuring up to 5.6 cm. Co ntrast demonstrated within both collecting systems. PELVIS BLADDER: Adams catheter in place. Circumferential wall thickening of the urinary bladder. REPRODUCTIVE: Abnormal heterogenous appearance with hypodense lesion within the right seminal vesicle . ABDOMEN & PELVIS STOMACH AND BOWEL: Small hiatal hernia, duodenum is unremarkable. The appendix is within normal limit s. Distal colonic diverticulosis without evidence for acute diverticulitis. Enteric contrast reaches the transverse colon. No evidence of bowel obstruction. PERITONEUM: No evidence of pneumoperitoneum or free fluid. VASCULATURE: Mild atherosclerotic calcifications are present throughout the abdominal aorta and its b ranches. No evidence of aortic aneurysm. Few pelvic phleboliths. MUSCULOSKELETAL: No acute osseous abnormalities . No aggressive osseous lesion. Mild multilevel degen erative disc disease. LYMPH NODES: Redemonstration of perinephric multiple prominent lymph nodes measuring up to 1.1 cm yunier rt axis (series 3, 22). New right external iliac chain lymph node measuring 0.7 cm axis (series 3, im age 55). SOFT TISSUE/ABDOMINAL WALL: Unremarkable IMPRESSION: 1. Abnormal appearance of the prostate gland and right seminal vesicle corresponding to known prosta te cancer. Right hepatic lobe 2.6 cm hypodense lesion highly suspicious for metastasis. Additionally there is a few mildly prominent periaortic lymph nodes with new right external iliac chain mildly pro minent lymph node which may represent metastasis. 2. Resolution of hydronephrosis. 3. Colonic diverticulosis without evidence for acute diverticulitis. 4. Understanding urinary bladder with Adams catheter in place and circumferential wall thickening. Co rrelate with urinalysis for cystitis.
--- NOTE | 2023-01-10 13:51 | NM ---
EXAMINATION TYPE: NM bone scan whole body DATE OF EXAM: 01/10/2023 COMPARISON: Chest radiograph 01/10/2023, CT abdomen pelvis 01/10/2023 CLINICAL INDICATION: Male, 62 years old with history of C61 prostate ca; Delayed whole-body scanning was performed following the injection of 22.9 mCi Tc 99m MDP. Images acq uired 4 hours post injection. FINDINGS: There is focal uptake demonstrated within the anterior left sixth rib and right iliac bone near the S I joint. No definitive correlation on the CT for the right iliac bone lesion. There is increased upta ke within the bilateral shoulder, sternoclavicular, and sacroiliac joints consistent with degenerati ve changes. No other photopenic areas or areas of increased activity are identified. Physiologic radiotracer activity is demonstrated in the kidneys and bladder. IMPRESSION: Abnormal focal uptake identified within the anterior left sixth rib and right iliac bone near the SI joint. No definitive correlation on the CT for the right iliac bone lesion. Findings are still suspicious for metastatic disease in the setting of suspected new liver metastasis.
== END | disposition home or self-care (01) ==
LOC: RADCTMAIN 07:27
PROVIDERS: ATTEND Urology
DX: C61 Malignant neoplasm of prostate (principal); K57.30 Diverticulosis of large intestine without perforation or abscess without bleeding; K76.89 Other specified diseases of liver; N42.89 Other specified disorders of prostate; M54.6 Pain in thoracic spine; R93.6 Abnormal findings on diagnostic imaging of limbs; R59.0 Localized enlarged lymph nodes
CPT/HCPCS: 82565; 84520; 71046; 74177; 36415; 78306; A9503; Q9967

== ENCOUNTER 2023-02-22 03:02 | Emergency (ER) | payer MEDICAID ==
[2023-02-22 03:10] VITALS: RESP 18; TEMP 98.1
--- NOTE | 2023-02-22 03:43 | ED ---
Male Urogenital HPI - General Chief complaint: Urogenital Stated complaint: Unable to Urinate Time Seen by Provider: 02/22/23 03:42 Source: patient Mode of arrival: ambulatory Limitations: no limitations - History of Present Illness Initial comments: 62-year-old male presenting with chief complaint of urinary retention. Patient has bladder cancer, states that today he noticed his Adams wasn't draining and he attempted to adjust it at home. He removed the Adams and states that since then he has been unable to urinate. He admits to discomfort and feels the urge to urinate but is unable to. No fever. + suprapubic pain. - Related Data Previous Rx's Medication Instructions Recorded Apixaban [Eliquis] 5 mg PO BID #60 tab 11/02/22 Metoprolol Succinate (ER) [Toprol 75 mg PO DAILY #60 tab 11/02/22 XL] Tamsulosin [Flomax] 0.4 mg PO PC-BRKFST #60 cap 11/02/22 lisinopriL 2.5 mg PO DAILY #30 tablet 11/02/22 Allergies Allergy/AdvReac Type Severity Reaction Status Date / Time No Known Allergies Allergy Verified 02/22/23 03:10 Review of Systems ROS Statement: Those systems with pertinent positive or pertinent negative responses have been documented in the HPI. ROS Other: All systems not noted in ROS Statement are negative. Past Medical History Past Medical History: Cancer, Prostate Disorder History of Any Multi-Drug Resistant Organisms: None Reported Past Surgical History: No Surgical Hx Reported Past Psychological History: No Psychological Hx Reported Smoking Status: Former smoker Past Alcohol Use History: Occasional Past Drug Use History: None Reported - Past Family History Mother Family Medical History: CVA/TIA, Hypertension Father Additional Family Medical History / Comment(s): brain anurysm General Exam Limitations: no limitations General appearance: alert, in no apparent distress Head exam: Present: atraumatic, normocephalic, normal inspection Eye exam: Present: normal appearance, EOMI Neck exam: Present: normal inspection, full ROM Respiratory exam: Absent: respiratory distress Neurological exam: Present: alert, oriented X3, CN II-XII intact Psychiatric exam: Present: normal affect, normal mood Skin exam: Present: warm, dry, intact, normal color. Absent: rash Course Vital Signs 02/22/23 02/22/23 03:08 04:20 Temperature 98.1 F Pulse Rate 96 89 Respiratory 18 18 Rate Blood Pressure 135/83 101/72 O2 Sat by Pulse 98 98 Oximetry Medical Decision Making - Medical Decision Making Was pt. sent in by a medical professional or institution ([facility] Mcknight, RECOVERY COORDINATOR, urgent care, hospital, or [facility]...) When possible be specific @ -No Did you speak to anyone other than the patient for history (EMS, parent, family, police, friend...)? What history was obtained from this source @ -No Did you review nursing and triage notes (agree or disagree)? Why? @ -I reviewed and agree with nursing and triage notes Were old charts reviewed (outside hosp., previous admission, EMS record, old EKG, old radiological studies, urgent care reports/EKG's, [facility] records)? Report findings @ -No old charts were reviewed Differential Diagnosis (chest pain, altered mental status, abdominal pain women, abdominal pain men, vaginal bleeding, weakness, fever, dyspnea, syncope, headache, dizziness, GI bleed, back pain, seizure, CVA, palpatations, mental health, musculoskeletal)? @ -not applicable EKG interpreted by me (3pts min.). @ -As above X-rays interpreted by me (1pt min.). @ -None done CT interpreted by me (1pt min.). @ -None done U/S interpreted by me (1pt. min.). @ -None done What testing was considered but not performed or refused? (CT, X-rays, U/S, labs)? Why? @ -None What meds were considered but not given or refused? Why? @ -None Did you discuss the management of the patient with other professionals (professionals i.e. [facility] Mcknight, RECOVERY COORDINATOR, lab, RT, psych nurse, social worker clinical, client support analyst, teacher, media liaison officer, telehealth case manager)? Give summary @ -No Was smoking cessation discussed for >3mins.? @ -No Was critical care preformed (if so, how long)? @ -No Were there social determinants of health that impacted care today? How? (Homelessness, low income, unemployed, alcoholism, drug addiction, transportation, low edu. Level, literacy, decrease access to med. care, [facility], re hab)? @ -No Was there de-escalation of care discussed even if they declined (Discuss DNR or withdrawal of care, Hospice)? DNR status @ -No What co-morbidities impacted this encounter? (DM, HTN, Smoking, COPD, CAD, Cancer, CVA, ARF, Chemo, Hep., AIDS, mental health diagnosis, sleep apnea, morbid obesity)? @ -None Was patient admitted / discharged? Hospital course, mention meds given and route, prescriptions, significant lab abnormalities, going to OR and other pertinent info. @ -62-year-old male with prostate cancer presenting with chief complaint of urinary retention. Patient removed his Adams catheter today but has been unable to urinate since. Bladder scan shows greater than 450 mL in the bladder. Adams catheter is placed and patient had instant and drainage and relief. He is instructed to follow-up with his urologist Dr. Green at his scheduled noel ointment on the . Follow-up with PCP. Report back to ER with any new or worsening symptoms. Discussed return parameters and answered all questions. Patient conveyed verbal understanding and agreed to the plan. I discussed this case in detail with my attending Dr. Guerrero Undiagnosed new problem with uncertain prognosis? @ -No Drug Therapy requiring intensive monitoring for toxicity (Heparin, Nitro, Insulin, Cardizem)? @ -No Were any procedures done? @ -No Diagnosis/symptom? @ -Urinary retention Acute, or Chronic, or Acute on Chronic? @ -Acute Uncomplicated (without systemic symptoms) or Complicated (systemic symptoms)? @ -Uncomplicated Side effects of treatment? @ -No Exacerbation, Progression, or Severe Exacerbation? @ -No Poses a threat to life or bodily function? How? (Chest pain, [place], [place], pneumonia, PE, COPD, DKA, ARF, appy, cholecystitis, CVA, Diverticulitis, Homicidal, Suicidal, threat to staff... and all critical care pts) @ -No Disposition Clinical Impression: Urinary retention Disposition: HOME SELF-CARE Condition: Good Instructions (If sedation given, give patient instructions): Urinary Retention in Men (ED), Adams Catheter Placement and Care (ED) Additional Instructions: Follow up with urologist at scheduled appointment. Report back to ER with any new or worsening symptoms. Is patient prescribed a controlled substance at d/c from ED?: No Referrals: None,Stated [Primary Care Provider] - 1-2 days Eder Green MD [STAFF PHYSICIAN] - 03/05/23 Time of Disposition: 04:07
[2023-02-22 04:27] VITALS: BP 101/72; PULSE 89
== END 2023-02-22 04:49 | disposition home or self-care (01) ==
LOC: EC 03:02
DX: R33.9 Retention of urine, unspecified (principal); Z87.891 Personal history of nicotine dependence
CPT/HCPCS: 51702; 51798; 87086; 99283

== ENCOUNTER → 2023-04-04 | Outpatient (CLI) | payer MEDICAID ==
[2023-04-04 16:33] LABS: HGB 13.4 d/dL (13.0-17.0); MCH 30.5 pg (27.0-32.0); MCHC 31.2 d/dL (32.0-37.0); MCV 97.9 FL (80.0-97.0); Mean Platelet Volume 10.8 FL (9.5-12.2); NRBC Per 100 WBC 0 X 10*3/uL (0.00-0.01); Platelet Count 223 X 10*3/uL (140-440); RBC 4.39 X 10*6/uL (4.40-5.60); RDW 12.6 % (11.5-14.5); WBC 11.96 X 10*3/uL (4.50-10.00)
[2023-04-04 16:52] LABS: Blood Urea Nitrogen 16.3 mg/dL (9.0-27.0)
[2023-04-04 16:53] LABS: Carbon Dioxide 27.2 mmol/L (21.6-31.8); Chloride 105 mmol/L (96-109); Potassium 4.5 mmol/L (3.5-5.5); Sodium 144 mmol/L (135-145)
== END | disposition home or self-care (01) ==
LOC: LABPAT 09:03
PROVIDERS: ATTEND Internal Medicine Clinical Cardiac Electrophysiology
DX: Z01.812 Encounter for preprocedural laboratory examination (principal); I48.91 Unspecified atrial fibrillation
CPT/HCPCS: 80051; 82565; 84520; 85027

== ENCOUNTER 2023-04-15 09:38 | Day surgery (SDC) | payer MEDICAID ==
[~2023-04-15 09:38] MED LIST: SODIUM CHLORIDE 0.9% 1,000 ML IV SCH
[2023-04-15] MEDS ORDERED: SODIUM CHLORIDE 0.9% 1,000 ML IV ONE (10:43)
[2023-04-15 11:24] VITALS: BP 127/74; PULSE 45; RESP 16; TEMP 98.2
--- NOTE | 2023-04-15 12:12 | P.HPCAR ---
History of Present Illness This is Dr. Ibrahim dictating an H/P on this patient The patient was interviewed and examined IMPRESSION / ASSESSMENT: Persistent atrial fibrillation with RVR Reduced LV systolic function ejection fraction 40% during atrial fibrillation, inferior lateral hypokinesis Prostate cancer awaiting treatment Symptomatic shortness of breath and dizziness Oral amiodarone begun for planned electrical cardioversion Chemical conversion to sinus bradycardia on amiodarone 400 mg by mouth daily PLAN: Reduce amiodarone to 200 mg by mouth daily Reduce metoprolol to 50 mg by mouth daily in a.m. Continue ELIQUIS Continue lisinopril Continue simvastatin 20 mg by mouth daily Cancel Electrical Cardioversion Today since He Is Chemically Convert to Sinus Rhythm Discharge home and follow-up in the office in 3 weeks HPI Patient continues to remain short of breath On to be in sinus bradycardia in the 40s with a regular rhythm Twelve-lead EKG showed sinus mechanism normal OR narrow QRS normal ST segments ROS: No fever chills or rigors, no cough, phlegm or expectoration, no nausea, vomiting or diarrhea, no hematuria, dysuria, no musculoskeletal complaints, no strokes or seizures, no skin lesions. EXAMINATION: 127/74 Pulse rate 45 beats a minute Afebrile Normal heart sounds normal S1 normal S2 no murmurs Lungs no rhonchi no crackles No lower extremity edema No JVD REVIEW OF LABS, ECG & MEDICAL DATA Medications include Crestor, metoprolol succinate 50 g twice daily, amiodarone 400 mg twice daily ELIQUIS and lisinopril Physical Exam Vitals: Vital Signs Temp Pulse Resp BP Pulse Ox 04/15/23 10:46 98.2 F 45 L 16 127/74 98 Intake and Output 04/14/23 04/15/23 04/15/23 22:59 06:59 14:59 Intake Total 50 Balance 50 Intake: IV 50 Other: Weight 84.1 kg Past Medical History Past Medical History: Cancer, Prostate Disorder Additional Past Medical History / Comment(s): SEE DR. IBRAHIM H & P FOR CARDIAC HISTORY PROSTATE CA. URINARY CATH (NEW ONE ON 04-09-23). History of Any Multi-Drug Resistant Organisms: None Reported Past Surgical History: No Surgical Hx Reported Past Anesthesia/Blood Transfusion Reactions: No Reported Reaction Additional Past Anesthesia/Blood Transfusion Reaction / Comment(s): NEVER HAD ANESTHESIA. Past Psychological History: No Psychological Hx Reported Smoking Status: Former smoker Past Alcohol Use History: Occasional Additional Past Alcohol Use History / Comment(s): QUIT ABOUT 10YRS AGO, 1PPD. Past Drug Use History: None Reported - Past Family History Mother Family Medical History: CVA/TIA, Hypertension Father Additional Family Medical History / Comment(s): brain anurysm Physical Examination Vital Signs Temp Pulse Resp BP Pulse Ox 04/15/23 10:46 98.2 F 45 L 16 127/74 98 Intake and Output 04/14/23 04/15/23 04/15/23 22:59 06:59 14:59 Intake Total 50 Balance 50 Intake: IV 50 Other: Weight 84.1 kg Results Current Medications Generic Name Dose Route Start Last Admin Trade Name Freq PRN Reason Stop Dose Admin Sodium Chloride 1,000 mls @ 20 mls/hr 04/15/23 05:42 Saline 0.9% IV 05/15/23 05:43 .Q24H ALEKS Intake and Output 04/14/23 04/15/23 04/15/23 22:59 06:59 14:59 Intake Total 50 Balance 50 Intake: IV 50 Other: Weight 84.1 kg Patient Weight 04/16/23 06:59 Weight 84.1 kg
== END 2023-04-15 12:21 | disposition home or self-care (01) ==
LOC: CATHEP 09:38
PROVIDERS: ATTEND Internal Medicine Clinical Cardiac Electrophysiology
DX: Z53.8 Procedure and treatment not carried out for other reasons (principal); I48.0 Paroxysmal atrial fibrillation; F10.90 Alcohol use, unspecified, uncomplicated; Z79.899 Other long term (current) drug therapy; Z79.01 Long term (current) use of anticoagulants; Z85.46 Personal history of malignant neoplasm of prostate; Z87.891 Personal history of nicotine dependence; Z82.3 Family history of stroke; Z82.49 Family history of ischemic heart disease and other diseases of the circulatory system

== ENCOUNTER → 2023-06-12 | Outpatient (CLI) | payer MEDICAID ==
[2023-06-12 14:56] LABS: Basophils # (A) 0.07 X 10*3/uL (0.00-0.10); Basophils % (A) 0.7 %; Eosinophils # (A) 0.66 X 10*3/uL (0.04-0.35); Eosinophils % (A) 6.6 %; HCT 42.1 % (39.6-50.0); HGB 13.4 g/dL (13.0-17.0); Lymphocytes # (A) 2.02 X 10*3/uL (0.90-5.00); Lymphocytes % (A) 20.3 %; MCH 30.2 pg (27.0-32.0); MCHC 31.8 g/dL (32.0-37.0); MCV 94.8 FL (80.0-97.0); Mean Platelet Volume 10.8 FL (9.5-12.2); Monocytes # (A) 0.95 X 10*3/uL (0.20-1.00); Monocytes % (A) 9.6 %; NRBC Per 100 WBC 0 X 10*3/uL (0.00-0.01); Neutrophils # (A) 6.19 X 10*3/uL (1.80-7.70); Neutrophils % (A) 62.3 %; Platelet Count 238 X 10*3/uL (140-440); RBC 4.44 X 10*6/uL (4.40-5.60); RDW 13.2 % (11.5-14.5); WBC 9.94 X 10*3/uL (4.50-10.00)
[2023-06-12 15:00] LABS: ALT 20 U/L (10-49); AST 27 U/L (14-35); Albumin 4.3 g/dL (3.8-4.9); Albumin/Globulin Ratio 1.39 Ratio (1.60-3.17); Alkaline Phosphatase 142 U/L (41-126); BUN/Creat Ratio 19.78 Ratio (12.00-20.00); Blood Urea Nitrogen 17.8 mg/dL (9.0-27.0); Calcium 9.9 mg/dL (8.7-10.3); Carbon Dioxide 25.4 mmol/L (21.6-31.8); Chloride 104 mmol/L (96-109); Globulin 3.1 g/dL (1.6-3.3); Glucose 90 mg/dL (70-110); Potassium 4.7 mmol/L (3.5-5.5); Sodium 142 mmol/L (135-145); Total Bilirubin 0.3 mg/dL (0.3-1.2); Total Protein 7.4 g/dL (6.2-8.2)
[2023-06-12 22:02] LABS: Appearance,Urine Cloudy (Clear); Bilirubin,Urine Negative (Negative); Blood,Urine Large (Negative); Color,Urine Yellow (Yellow); Ketones,Urine Negative (Negative); Nitrite,Urine Positive (Negative); PH, Urine 7.5; Specific Gravity,Urine 1.018 (1.001-1.030); Urobilinogen,Urine 0.2 E.U./DL
[2023-06-12 23:35] LABS: Bacteria,Urine 4+ (None Seen); Calcium Oxalate Crystals,Urine Present (None Seen)
== END | disposition home or self-care (01) ==
LOC: LABWHC1 09:08
PROVIDERS: ATTEND Urology
DX: Z01.812 Encounter for preprocedural laboratory examination (principal); C61 Malignant neoplasm of prostate; R33.9 Retention of urine, unspecified; R31.29 Other microscopic hematuria
CPT/HCPCS: 36415; 80053; 81001; 85025; 87086

== ENCOUNTER 2023-06-19 06:17 | Day surgery (SDC) | payer MEDICAID ==
[2023-06-12 12:27] VITALS: BMI 25.0
--- NOTE | 2023-06-18 08:35 | P.GSHP ---
History of Present Illness H&P Date: 06/18/23 62 yo male with gleason9, t3, m1 caprostate. He is in urine retention and lhrh therapy hasnt liberated him from his urine retention He comes for a turp the risks have been discussed. - Constitutional Constitutional: Denies chills, Denies fever - EENT Eyes: denies blurred vision, denies pain Ears, nose, mouth and throat: Denies headache, Denies sore throat - Cardiovascular Cardiovascular: Denies chest pain, Denies shortness of breath - Respiratory Respiratory: Denies cough, Denies 7 - Gastrointestinal Gastrointestinal: Denies abdominal pain, Denies diarrhea, Denies nausea, Denies vomiting - Genitourinary (Female) Genitourinary: Denies dysuria, Denies hematuria - Genitourinary (Male) Genitourinary: Denies dysuria, Denies hematuria - Musculoskeletal Musculoskeletal: Denies myalgias - Integumentary Integumentary: Denies pruritus, Denies rash - Neurological Neurological: Denies numbness, Denies weakness - Psychiatric Psychiatric: Denies anxiety, Denies depression - Endocrine Endocrine: Denies fatigue, Denies weight change Past Medical History Past Medical History: Cancer, Prostate Disorder Additional Past Medical History / Comment(s): SEE DR. ROCK H & P FOR CARDIAC HISTORY PROSTATE CA. URINARY CATH (NEW ONE ON 04-09-23). History of Any Multi-Drug Resistant Organisms: None Reported Past Surgical History: No Surgical Hx Reported Past Anesthesia/Blood Transfusion Reactions: No Reported Reaction Additional Past Anesthesia/Blood Transfusion Reaction / Comment(s): NEVER HAD ANESTHESIA. Additional Past Alcohol Use History / Comment(s): QUIT ABOUT 10YRS AGO, 1PPD. Past Drug Use History: None Reported - Past Family History Mother Family Medical History: CVA/TIA, Hypertension Father Additional Family Medical History / Comment(s): Brain aneurysm. Medications and Allergies Home Medications Medication Instructions Recorded Confirmed Type Apixaban [Eliquis] 5 mg PO BID #60 tab 11/02/22 06/12/23 Rx Rosuvastatin [Crestor] 20 mg PO HS 04/11/23 06/12/23 History lisinopriL 2.5 mg PO QAM 04/11/23 06/12/23 History Amiodarone [Cordarone] 200 mg PO QAM 06/12/23 06/12/23 History Apalutamide [Erleada] 240 mg PO HS 06/12/23 06/12/23 History Dulcolax (Unknown Dose) 2 tab PO DAILY 06/12/23 06/12/23 History Metoprolol Succinate (ER) [Toprol 50 mg PO QAM 06/12/23 06/12/23 History XL] Tamsulosin [Flomax] 0.4 mg PO QAM 06/12/23 06/12/23 History Allergies Allergy/AdvReac Type Severity Reaction Status Date / Time No Known Allergies Allergy Verified 04/15/23 09:50 Surgical - Exam - General well developed, well nourished, no distress - Eyes normal ocular movement, no icteric - ENT no hearing loss, no congestion - Neck no masses, trachea midline - Respiratory normal respiratory effort, clear to auscultation - Abdomen Abdomen: soft, non tender, no guarding, no rigid, no rebound - Rectum enlarged firm prostate - Integumentary no rash, no abnormal pigmentation - Neurologic no disoriented, no combative - Psychiatric oriented to time, oriented to person, oriented to place, speech is normal, memory intact Assessment and Plan Assessment: Impression. Metastatic prostate cancer with persistent urine retention Plan: Bipolar turpp
[~2023-06-19 06:17] MED LIST changes: +AMPICILLIN 1,000 MG in SODIUM CHLORIDE 0.9% 50 ML IVPB PRN; +DEXAMETHASONE SOD PHOSPHATE 4 MG/ML 1 ML VIAL IV ONE; +GENTAMICIN 120 MG in SODIUM CHLORIDE 0.9% 100 ML IVPB PRN; +LACTATED RINGERS 1,000 ML IV SCH; +LIDOCAINE 1% (10MG/ML) FOR IV START INTRADERMA PRN; +ONDANSETRON 4 MG/2 ML VIAL IVP ONE; -SODIUM CHLORIDE 0.9% 1,000 ML IV SCH; +droPERidol 5 MG/2 ML VIAL IVP ONE
[2023-06-19] MEDS ORDERED: HYDROmorphone 0.5 MG/0.5 ML SYRINGE IVP PRN (07:00)
[2023-06-19] MEDS ORDERED: MIDAZOLAM 2 MG/2 ML VIAL ONE (08:19)
[2023-06-19] MEDS ORDERED: HYDROmorphone (PF) 1 MG/ML ONE (08:19)
[2023-06-19] MEDS ORDERED: ePHEDrine 50 MG/ML 1 ML VIAL ONE (08:19)
[2023-06-19] MEDS ORDERED: PROPOFOL 10 MG/ML 20 ML VIAL IV ONE (08:19)
[2023-06-19] MEDS ORDERED: LIDOCAINE 1% INJ 10MG/ML (20 ML MDV) ONE (08:19)
[2023-06-19] MEDS ORDERED: KETAMINE HCL IN 0.9 % NACL 50 MG/5 ML SYRINGE ONE (08:19)
[2023-06-19] MEDS ORDERED: fentaNYL (PF) 50 MCG/ML 2 ML AMP ONE (08:19)
--- NOTE | 2023-06-19 09:23 | P.OP ---
Date of Procedure: 06/19/23 Preoperative Diagnosis: Urine retention secondary to enlarged cancerous prostate Postoperative Diagnosis: Same Procedure(s) Performed: Bipolar channel TURP Anesthesia: CHINO Surgeon: Eder Green Estimated Blood Loss (ml): 25 Pathology: other (Prostate) Condition: stable Disposition: PACU Indications for Procedure: Patient is 62. He presented with urine retention. He is found to have a Coats 9T3 M1 prostate cancer. He has been on complete androgen blockade and he is still unable to urinate after several months of this treatment. He comes for a channel TURP Description of Procedure: Patient brought to the operating suite. Given general anesthesia. Prepped and draped sterilely. He's been given preoperative antibiotics. Culture was nonspecific. A direct vision the 25-Angolan sheath and direct vision obturator was introduced in urethra. The urethra is normal. The prostatic urethra is inflamed and obstructing. It is fixed consistent with prostate cancer. With the Nicholas resectoscope and super second loop I resect the prostate and a channel-like fashion. The verumontanum was not well seen so I am careful not to go to distal. I freed the bladder from prostatic chips and stony debris. I reinspected the prosthetic fossa and control any bleeding. At the end of the procedure I removed the resectoscope and introduce an 18-Angolan coud-tip catheter in the bladder with clear to very light pink urine return. Blood loss is 25 mL. He tolerated procedure well discharged home upon recovery and found the office next week for catheter removal voiding trial. Hopefully the sphincter is not frozen due to the cancer.
[2023-06-19] MEDS ORDERED: METOPROLOL TARTRATE 5 MG/5 ML VIAL IVP ONE (09:25)
[2023-06-19 09:40] VITALS: RESP 16; TEMP 97.7
[2023-06-19] MEDS ORDERED: LACTATED RINGERS 1,000 ML IV ONE (10:18)
[2023-06-19 11:27] VITALS: BP 110/70; PULSE 49
== END 2023-06-19 12:03 | disposition home or self-care (01) ==
LOC: OR 06:17
PROVIDERS: ATTEND Urology
DX: C61 Malignant neoplasm of prostate (principal); Z85.46 Personal history of malignant neoplasm of prostate; Z82.49 Family history of ischemic heart disease and other diseases of the circulatory system; Z79.01 Long term (current) use of anticoagulants; Z79.899 Other long term (current) drug therapy
CPT/HCPCS: 88305; 52601; J2250; J1100; J2405; J2001; J3010; J1580; J0290; J1170 ×2; J2704

== ENCOUNTER → 2023-08-30 | Outpatient (CLI) | payer MEDICAID ==
--- NOTE | 2023-08-30 11:37 | CT ---
EXAMINATION: CT ABDOMEN AND PELVIS WITH IV CONTRAST DATE OF EXAMINATION: 08/30/2023. COMPARISON: None available. INDICATION: Prostate cancer. PROCEDURE: Axial CT of the abdomen and pelvis was performed with contrast and sagittal and coronal reformatted images were performed. CT dose lowering techniques were used, to include: automated expos ure control, adjustment for patient size, and/or use of iterative reconstruction. 100 mL of Isovue-30 0 was given intravenously. FINDINGS: LOWER CHEST : The visualized lung bases are clear. There are no pleural or pericardial effusions. ABDOMEN: Liver and Biliary system: There is significant increase in size of the mass in the left lobe liver w hich measures approximately 7.7 x 5.2 cm in diameter and previously measures a maximum diameter of 2. 6 cm. No new liver lesions are seen. Adrenal glands: Normal. Kidneys and ureters: Unchanged bilateral renal cysts Spleen: Normal. Pancreas: Normal. Gallbladder: Normal. Lymph nodes, Peritoneum and mesentery: There is no mesenteric or retroperitoneal lymphadenopathy. Gastrointestinal tract: There are no dilated loops of bowel or free intraperitoneal air. There is a small sliding hiatal hernia. The appendix is normal. There is scattered colonic diverticulosis whi ch is mild except for it is significant in the sigmoid colonic region. There is no evidence of divert iculitis. Aorta/IVC: There is mild vascular calcification throughout the abdominal aorta without evidence of aneurysmal dilation or dissection. IVC normal. Abdominal wall: Normal. PELVIS: Fluid: There is no free fluid in the pelvis. Lymph Nodes: There is no pelvic or inguinal lymphadenopathy.. Urinary bladder: Normal. BONES: There is a new destructive lesion involving the right pubic bone with a large soft tissue com ponent which measures up to 6.4 cm in diameter. Additional new sclerotic foci are seen within the pel prashant bones which are most prominent in the sacral region and right iliac bone, however also seen throu ghout the remainder of the pelvic bones which is compatible with progressive metastatic disease.. ADDITIONAL SIGNIFICANT FINDINGS: None. IMPRESSION: 1. Progressive metastatic disease as above. 2. Diverticulosis without evidence of diverticulitis. 3. Mild thickening of the bladder wall which is of indeterminate etiology. This is decreased since e previous examination.
--- NOTE | 2023-09-01 15:02 | NM ---
EXAMINATION TYPE: NM bone scan whole body DATE OF EXAM: 08/30/2023 COMPARISON: 01/10/[address] 09/09/2023 CLINICAL INDICATION: Male, 62 years old with history of C61 Prostate cancer; TECHNIQUE: Delayed whole-body scanning was performed following the injection of 24.0 mCi Tc 99m MDP. Images acquired 5 hours post injection. FINDINGS: Focal intense activity right pubic bone and right side of the sacrum and posterior right iliac bone h ave both markedly increased. A couple tiny intense foci posterior mid sacrum and left side of the pos terior sacrum are now noted as well. The previous abnormal activity anterior left rib margin has reso lved and may have been on a post traumatic basis. IMPRESSION: 1. Marked interval progression in the 2 sites of osseous metastases (right sacrum/posterior right edgard ac bone and right pubic bone). 2. Two additional small foci of osseous metastases (upper posterior mid sacrum and left side of the s acrum).
== END | disposition home or self-care (01) ==
LOC: RADNMMAIN 07:34
PROVIDERS: ATTEND Urology
DX: C61 Malignant neoplasm of prostate (principal); K57.30 Diverticulosis of large intestine without perforation or abscess without bleeding; N32.89 Other specified disorders of bladder
CPT/HCPCS: 74177; 78306; A9503; Q9967

== ENCOUNTER → 2023-11-29 | Outpatient (CLI) | payer MEDICAID ==
[2023-11-29 18:05] LABS: Chol/HDL Ratio 3.75 Ratio; LDL Cholesterol,Calculated 120.4 mg/dL (0.0-131.0)
[2023-11-29 18:06] LABS: ALT 15 U/L (10-49); AST 51 U/L (14-35); Albumin 4.8 g/dL (3.8-4.9); Albumin/Globulin Ratio 1.55 Ratio (1.60-3.17); Alkaline Phosphatase 310 U/L (41-126); Calcium 10.2 mg/dL (8.7-10.3); Carbon Dioxide 21.6 mmol/L (21.6-31.8); Chloride 102 mmol/L (96-109); Globulin 3.1 g/dL (1.6-3.3); Glucose 110 mg/dL (70-110); Potassium 4.5 mmol/L (3.5-5.5); Sodium 141 mmol/L (135-145); T4, Free (Free Thyroxine) 1.05 ng/dL (0.80-1.80); Total Bilirubin 0.4 mg/dL (0.3-1.2); Total Protein 7.9 g/dL (6.2-8.2)
== END | disposition home or self-care (01) ==
LOC: LABWHC1 10:13
PROVIDERS: ATTEND Internal Medicine Clinical Cardiac Electrophysiology
DX: I48.0 Paroxysmal atrial fibrillation (principal); I42.9 Cardiomyopathy, unspecified; Z79.899 Other long term (current) drug therapy
CPT/HCPCS: 36415; 80053; 80061; 84439; 84443; 84481

== ENCOUNTER → 2023-12-09 | Outpatient (CLI) | payer MEDICAID ==
[2023-12-09 08:26] LABS: African American GFR (CKD) >90 (>60 ml/min/1.73 sqM); Blood Urea Nitrogen 15 mg/dL (9-20); Non-African American GFR(CKD) >90 (>60 ml/min/1.73 sqM)
--- NOTE | 2023-12-09 15:35 | NM ---
EXAMINATION TYPE: NM bone scan whole body DATE OF EXAM: 12/09/2023 COMPARISON: 08/30/2023 CLINICAL INDICATION: Male, 62 years old with history of C61 PROSTATE CA; Delayed whole-body scanning was performed following the injection of 24 mCi Tc 99m MDP. Images acqui red 3 hours post injection. FINDINGS: Progression of increased uptake right hemisacrum and right superior and inferior pubic ramus and righ t os pubis. Focal increased uptake left inferior pubic ramus is also mildly progressed. No new lesion s seen. Tiny focus noted central spinal sacrum. Degenerative uptake shoulders knees and ankles. IMPRESSION: Progression of increased uptake as noted above.
--- NOTE | 2023-12-09 22:09 | CT ---
EXAMINATION TYPE: CT ChestAbdPelvis w con DATE OF EXAM: 12/09/2023 INDICATION: prostate ca COMPARISON: 08/30/2023 CT DLP: 1180.1 mGycm CONTRAST: Performed with Oral Contrast and with IV Contrast, patient injected with 100 mL of Isovue 300. TECHNIQUE: Axial images at 5 mm thick sections. Reconstructed images in the coronal plane. Delayed images through the kidneys. FINDINGS: CT CHEST: Portion of the thyroid visualized is normal. There is a punctate nodule within the posterior left upper lung field. Series 4 image 23. Couple of a dditional punctate densities are within the right lung, example series 4 image 25. And within the le ft lung series 4 image 30. There is a 0.7 cm density which may have an eccentric calcification in the periphery of the lingula. Series 4 image 41r there is a 0.7 cm linear density at the left base above the diaphragm knee slightly more conspicuous. Series 4 image 54. Bilateral apical bulla are present. No enlarged mediastinal or hilar adenopathy is evident. The ascending aorta diameter at the level of the main pulmonary artery is 3.3 cm. The main pulmonary artery diameter at the bifurcation is 2.[address] ABDOMEN: Liver: There is an ill-defined enlarging hypodense heterogenous mass within the anterior right mid li jarad measuring 9.9 x 6.8 cm, exam series 5 image 20. Previous measurement 5.2 x 7.7 cm. Spleen: Normal Pancreas: Normal Adrenal glands: The adrenal glands are normal. Gallbladder: Normal Kidneys: No masses are evident. No hydronephrosis is present. There is a 5.4 cm cyst posterior uppe r pole left kidney. Smaller cortical renal cysts 1.4 cm. A posterior lateral mid right renal cortical cyst measures centimeters. Smaller cortical renal cysts at the inferior medial pole right kidney shaila suring 0.7 cm Delayed images were obtained through the kidneys, which remain unremarkable. Aorta: Vascular calcification is within the aorta. Inferior vena cava: Normal. CT PELVIS: Loops of bowel within the abdomen and pelvis are normal. Scattered diverticuli within the colon. No s uspicious adjacent inflammatory changes to suggest acute diverticulitis. There are loops of bowel which are incompletely distended or lack oral contrast limiting their evaluation. Appendix: Normal as visualized. Urinary bladder: Normal. Genitourinary structures: Prostate may have some displacement from the right pubic ramus extending me tastasis. Patient primary not clearly identified on this exam. Osseous structures: There is a large lytic lesion with large soft tissue component adjacent to and in volving the left pubic symphysis. This has a 6.8 cm diameter. Example image series 3 image 125. This is enlarged from the comparison study. Internal calcification appears to be present. This extends int o the anterior column of the right hip. There appears be an additional osseous lesion with expansion at the inferior left pubic ramus, exampl e series 3 image 24. This has increased in size. Sclerotic lesions within the right iliac wing are present in the sclerotic metastasis or treated meta stasis. Subtle ill-defined sclerotic areas are within the sacrum. Some lysis may be within the left h umeral head. IMPRESSION: 1. Enlarging heterogenous hypodense mass within the right lobe liver suspicious for metastasis. 2. Enlarging osseous metastasis extending from the bilateral pubic cysts. 3. Diverticulosis without acute diverticulitis. 4. Cortical renal cysts. 5. There are some tiny punctate nodules within the lung rodríguez discussed above. Metastasis cannot be excluded, among other etiologies.
== END | disposition home or self-care (01) ==
LOC: RADNMMAIN 07:35
PROVIDERS: ATTEND Internal Medicine Hematology & Oncology
DX: C79.51 Secondary malignant neoplasm of bone (principal); C78.7 Secondary malignant neoplasm of liver and intrahepatic bile duct; C61 Malignant neoplasm of prostate; R91.8 Other nonspecific abnormal finding of lung field; N28.1 Cyst of kidney, acquired; K57.90 Diverticulosis of intestine, part unspecified, without perforation or abscess without bleeding; G89.3 Neoplasm related pain (acute) (chronic); I10 Essential (primary) hypertension
CPT/HCPCS: 82565; 84520; 71260; 74177; 78306; 36415; A9503; Q9967

== ENCOUNTER → 2024-03-18 | Outpatient (CLI) | payer MEDICAID ==
[2024-03-18 07:48] LABS: African American GFR (CKD) >90 (>60 ml/min/1.73 sqM); Blood Urea Nitrogen 15 mg/dL (9-20); Non-African American GFR(CKD) >90 (>60 ml/min/1.73 sqM)
--- NOTE | 2024-03-18 14:20 | NM ---
EXAMINATION TYPE: NM bone scan whole body DATE OF EXAM: 03/18/2024 COMPARISON: Nuclear medicine bone scan 12/09/2023, 08/30/2023, 01/10/2023 CLINICAL INDICATION: Male, 63 years old with history of C61 MALIGNANT NEOPLASM OF PROSTATE; Delayed whole-body scanning was performed following the injection of 5.5 mCi Tc 99m MDP. Images acqu ired 23.8 hours post injection. FINDINGS: There is increased radiotracer uptake again demonstrated within the right hemisacrum, right superior and inferior pubic rami and right pubis. Additional uptake again demonstrated within the left inferio r pubic ramus. No new lesions are seen. Degenerative uptake again seen within the bilateral shoulders and sternum. No new focal lesions identified. IMPRESSION: Overall similar osseous metastatic uptake from most recent nuclear medicine study. No new focal uptak e identified. [facility], , 03/18/2024 2:18 PM
--- NOTE | 2024-03-19 12:38 | CT ---
EXAMINATION TYPE: CT ChestAbdPelvis w con DATE OF EXAM: 03/18/2024 COMPARISON: 12/09/2023 HISTORY: Hx prostate ca, follow up CT DLP: 1455.80 mGycm CONTRAST: CT scan of the chest, abdomen and pelvis is performed with Oral Contrast and with IV Contrast, patien t injected with 100 mL of Isovue 300. CT Chest: LUNGS: Apical emphysematous changes. The lungs are clear and free of infiltrate or atelectasis. No p ulmonary nodule or mass is detected. No pleural effusion or CT evidence of interstitial lung disease . MEDIASTINUM: Thoracic aorta is of normal caliber. The heart is not enlarged. No evidence for media stinal mass or adenopathy. HILAR STRUCTURES: No evidence for mass. No hilar adenopathy is appreciated. OTHER: No significant abnormality. CONTRAST CT ABDOMEN AND PELVIS FINDINGS: LIVER/GB: No calcified gallstones. Hepatic masses seen within the left hepatic lobe medial segment is smaller in size and measures 7.5 x 4.6 cm versus 9.8 x 5.1 cm. No new masses are seen with certain ty at this time. Biliary tree is of normal caliber. PANCREAS: No inflammation. No distinct mass. SPLEEN: No splenic enlargement. No lesion seen. ADRENALS: No nodule. No thickening. KIDNEYS/BLADDER: No hydronephrosis. No nephrolithiasis. No distinct solid renal mass. Renal cystic changes are stable. BOWEL: Normal appendix. Normal bowel caliber. No inflammation. Sigmoid diverticulosis without diver ticulitis. GENITAL ORGANS: No gross abnormality. LYMPH NODES: No greater than 1cm abdominal or pelvic lymph nodes are appreciated. AORTA: No significant abnormality. OSSEOUS STRUCTURES: Right-sided sacroiliac metastatic disease redemonstrated and appears essentially unchanged. Expansile metastatic disease to the right sided pubic rami. Healed fracture versus metasta ses involving the left inferior pubic ramus. Chronic loss of height of L2. OTHER: No significant additional abnormality is seen. IMPRESSION: 1. Essentially stable CT of the chest abdomen and pelvis with evidence for persistent but diminishing hepatic mass as well as stable metastatic disease to the osseous structures. [facility], , 03/19/2024 12:36 PM
== END | disposition home or self-care (01) ==
LOC: RADNMMAIN 07:06
PROVIDERS: ATTEND Internal Medicine Hematology & Oncology
DX: C61 Malignant neoplasm of prostate
CPT/HCPCS: 36415; 71260; 74177; 78306; 82565; 84520

== ENCOUNTER → 2024-05-11 | Outpatient (CLI) | payer MEDICAID ==
--- NOTE | 2024-05-12 09:18 | MR ---
EXAMINATION TYPE: MR lumbar spine wo con DATE OF EXAM: 05/11/2024 1:48 PM COMPARISON: None. CLINICAL INDICATION: Male, 63 years old with history of M47.816,M54.16, Low back pain into gita lower extremities, hx of metastatic cancer IV Contrast: cc (None if empty) TECHNIQUE: Multiplanar, multisequence images of the lumbar spine were acquired without IV contrast. L1-L2: Loss of height involving superior plate of L2 estimated at 20%. Was present on prior CT of 02/23. There is abnormal signal noted within the multiple lumbar segments. Metastatic disease is roma pected. No evidence for disc herniation or central stenosis. L2-L3: Normal disc appearance without desiccation. No herniation, protrusion or disc bulging. No ca nal stenosis is present. Foramina are patent bilaterally. L3-L4: Normal disc appearance without desiccation. No herniation, protrusion or disc bulging. No ca nal stenosis is present. Foramina are patent bilaterally. L4-L5: Normal disc appearance without desiccation. No herniation, protrusion or disc bulging. No ca nal stenosis is present. Foramina are patent bilaterally. L5-S1: Normal disc appearance without desiccation. No herniation, protrusion or disc bulging. No ca nal stenosis is present. Foramina are patent bilaterally. Abnormal signal within the sacrum right greater than left compatible metastatic disease. Conus medull gil has a normal appearance. IMPRESSION: 1. Bony metastatic disease. 2. No evidence for disc herniation or central stenosis. Nonacute loss of height superior endplate of L2. [facility], , 05/12/2024 9:16 AM
== END | disposition home or self-care (01) ==
LOC: RADMRIMAIN 12:58
PROVIDERS: ATTEND Orthopaedic Surgery
DX: C79.51 Secondary malignant neoplasm of bone (principal); M47.816 Spondylosis without myelopathy or radiculopathy, lumbar region; M54.16 Radiculopathy, lumbar region
CPT/HCPCS: 72148

== ENCOUNTER → 2024-07-27 | Outpatient (CLI) | payer MEDICAID ==
[2024-07-27 09:04] VITALS: BP 106/74; PULSE 74; RESP 15; TEMP 97.8
--- NOTE | 2024-07-27 16:13 | P.PAINPG ---
PQRS Measure Charge Sheet Comment: HISTORY OF PRESENT ILLNESS: A 63 yr old wheelchair bound male w history of Prostate CA w bony metastasis w 2 sisters at side as a referral from Dr Rivera presents today w severe and chronic lumbosacral pain > 3 mo secondary to radiculopathy, spondylosis and facet arthropathy without myelopathy for evaluation. Pt states pain level is provoked at /10 in intensity, constant, localized in the lumbosacral spine, predominantly axial, sharp in character w occasional shooting pain towards . Pain is provoked by lifting, standing for periods > 20 min. Pain is alleviated by physician guided home stretches from Dr Rivera daily since May 2024, medications ([place] 10/325mg which is ineffective, Toradol), topical, use of a wheelchair for ambulatory assistance, repositioning and rest . Oswestry axial pain score at 25. PMH: OA, Prostate CA w bony metastasis PSH: TURP (2022), Urinary Cath (2022) SH: Former tobacco user, No ETOH use, No illicit drug use FH: Mo- CVA. Fa- Brain Aneurysm All: See list Meds: See list incl [place] 10/325mg, Eliquis REVIEW OF ORGAN SYSTEMS: CONSTITUTIONAL: No fevers or chills. No recent weight loss. NEUROLOGICAL: + numbness and tingling along the distal extremities. No seizure disorders or headaches. MUSCULOSKELETAL: + pain PSYCHIATRIC: Denies current depression or suicidal thoughts. Physical Examinations : Constitutional : Cooperative , not in acute distress . Neurologic : Cranial nerve II to XII intact. No focal neurological deficits. Psychiatric : alert & oriented x 3. Matching mood & appropriate affect. Judgment & insight intact. Musculoskeletal : Cervical Spine Motor strength in the deltoid and biceps: Normal right side. Normal Left side Motor strength biceps and the wrist extensors: Normal right side . Normal left side Motor strength in the triceps muscle: Normal right side. Normal left side Deep tendon reflexes: Normal at the biceps. Normal at Brachioradialis. Normal at triceps Vertebral body tenderness to deep palpation over Cervical facet loading test: positive bilaterally Spurling test: positive bilaterally Neck distraction test: positive bilaterally Fany sign: positive bilaterally Lumbar spine Motor strength lower extremities ,thigh and legs 5/5 Right side , 5/5 Left side Deep tendon reflexes : Normal Knee Jerk. Normal Ankle Jerk Vertebral body tenderness over L5 Espinal Test positive BL L5-S1 Lumbar facet Loading Test: positive Right / positive Left Range of motion of the lumbar spine Flexion 30 degrees, extension 10 degrees Straight Leg Raise test: Left/ Right positive at degrees Tamar test: positive right / positive left. Severe tenderness over the Sacroiliac joint on the Right / Left sides Gaenslen test: positive bilaterally Seated flexion test: positive bilaterally. Sacral spine : Severe tenderness over the Sacroiliac joint: right side / left side Range of motion: Flexion of the lumbar spine <60 degrees Range of motion: Extension of the lumbar spine <20 degrees Gaenslen's Test positive Tamar test: positive right side / left side Thigh Thrust Test Sacral Thrust Test Imaging: MRI non contrast cervical spine from 05/15/24 reviewed MRI non contrast thoracic spine from 05/15/24 reviewed MRI non contrast lumbar spine from 05/11/24 reviewed Assessment/ Plan : Cervical radiculopathy, T6-T10 radiculopathy, L5-S1 spondylolisthesis w stenosis Recommendation of BL TFESI L5-S1 #1. Risks, benefits of procedure discussed and patient verbalized understanding. Admits to anti- coagulant use or medical history of diabetes. Protocol for discontinuation/ continuation of medications yan procedure discussed. All questions answered. I have spent greater than 30 minutes on patient care today. Dr Fletcher was ce ilable by phone for the evaluation of this patient. The time was used to review the medical records including relevant urine studies and Prescription history (MAPs), review of the available imaging, evaluation and examination of the patient, coordination of care with the medical staff and if applicable referring physicians, as well as creation of the medical record - Pain Location Sacrum Pharmacological Interventions: Medication Home Medications: Ambulatory Orders Apixaban [Eliquis] 5 mg PO BID #60 tab 11/02/22 Rosuvastatin [Crestor] 5 mg PO HS 04/11/23 lisinopriL 2.5 mg PO QAM 04/11/23 Dulcolax (Unknown Dose) 2 tab PO DAILY 06/12/23 Metoprolol Succinate (ER) [Toprol XL] 50 mg PO BID 06/12/23 Ondansetron [Zofran] 1 - 2 tab PO QID PRN 01/08/24 dexAMETHasone [Decadron] 2 tab PO DIRECTED 01/08/24 predniSONE 1 tab PO DIRECTED 01/08/24 Ketorolac [Toradol] 10 mg PO Q6HR PRN 04/22/24 diazePAM [Valium] 5 mg PO DAILY 1 Days #2 tab 07/27/24 oxyCODONE HCL/ACETAMINOPHEN [Percocet 7.5-325 mg Tablet] 1 each PO TID PRN 30 Days #90 tab 07/27/24 oxyCODONE HCL/ACETAMINOPHEN [Percocet 7.5-325 mg] 1 tab PO TID PRN 30 Days #90 tab 07/27/24 Controlled Substance Measures - Controlled Substance Measures Is patient prescribed a controlled substance at discharge?: Yes When asked, does pt state using other controlled substances?: Yes If prescribed controlled substance>3 days was MAPS reviewed?: Yes If Rx opioid, was Start Talking consent form obtained?: Yes Was information provided regarding opioid addiction?: Yes
== END ==
LOC: PNWHC3 08:25
PROVIDERS: ATTEND Specialist
DX: M54.12 Radiculopathy, cervical region (principal); M54.14 Radiculopathy, thoracic region; M43.17 Spondylolisthesis, lumbosacral region; M48.07 Spinal stenosis, lumbosacral region
CPT/HCPCS: 99202

== ENCOUNTER 2024-08-14 07:14 | Day surgery (SDC) | payer MEDICAID ==
[~2024-08-14 07:14] MED LIST changes: -AMPICILLIN 1,000 MG in SODIUM CHLORIDE 0.9% 50 ML IVPB PRN; -DEXAMETHASONE SOD PHOSPHATE 4 MG/ML 1 ML VIAL IV ONE; -GENTAMICIN 120 MG in SODIUM CHLORIDE 0.9% 100 ML IVPB PRN; -LIDOCAINE 1% (10MG/ML) FOR IV START INTRADERMA PRN; -ONDANSETRON 4 MG/2 ML VIAL IVP ONE; -droPERidol 5 MG/2 ML VIAL IVP ONE
[2024-08-14 07:42] VITALS: RESP 16; TEMP 97.3
[2024-08-14] MEDS ORDERED: IOPAMIDOL M200 10 ML VIAL ONE (08:53)
[2024-08-14] MEDS ORDERED: methylPREDNISolone ACETATE 80 MG/ML 1 ML VIAL ONE (08:53)
--- NOTE | 2024-08-14 09:05 | P.PCN ---
Date of Procedure: 08/14/24 Procedure(s) Performed: PREOPERATIVE DIAGNOSIS: 1-Lumbar radiculopathy . POSTOPERATIVE DIAGNOSIS: 1-lumbar radiculopathy. PROCEDURE 1. Transforaminal epidural steroid injection under fluoroscopic guidance at bilateral L5-S1 level. (Fluoroscopy images stored on file in the radiology Department ) 2. Lumbar epidurogram . ANESTHESIA: Local with 1% lidocaine 3 ml. EBL: Minimal PROCEDURE INDICATION: The patient with low back pain and radiculopathy symptoms unresponsive to conservative treatment. PROCEDURE DESCRIPTION / TECHNIQUE: The patient was seen and identified in the preoperative area. Risks, benefits, complications, and alternatives were discussed with the patient. The patient agreed to proceed with the procedure and signed the consent. IV was started, and vital signs were stable. Patient was taken to the OR and time out was completed. The patient was placed in the prone position on procedure table and a pillow was placed under the abdomen to reduce lumbar lordosis. The lumbosacral area was prepped and draped in the usual sterile fashion. Critical pause was taken. Vital signs were closely monitored during the procedure. Using oblique fluoroscopy, the chin of the `Nhan dog at Right L5-S1 level was identified, and the skin and deeper tissues just below was localized with 1% lidocaine. Subsequently, a 22-gauge 3.5-inch spinal needle was advanced under a tunneled view fluoroscopic guidance just underneath the chin of the `Nhan dog at the right L5-S1 Under lateral fluoroscopy, the needle was then advanced to the posterior border of the interforaminal space. After negative aspiration of CSF and blood and with no paresthesias, 1 mL Isovue 200 contrast dye was injected excellent epidurogram and outlining of the nerve root Subsequently, 3 mL of block solution containing 40 mg Depo-Medrol and 2 mL of 0.9% normal saline PF was injected. Needle was removed and the same procedure was repeated at the left L5-S1 level. At the end of the procedure, skin was cleansed, and bandages were applied. COMPLICATIONS:none DISPOSITION / PLANS: The patient was placed in a supine position and transferred to the recovery area in a stable condition for observation. There was no evidence of lower extremity motor or sensory deficit after the procedure. Patient was discharged from the recovery room after meeting discharge criteria. Home discharge instructions were given to the patient by the staff. The patient was reexamined prior to discharge.
--- NOTE | 2024-08-14 09:21 | FL ---
EXAMINATION TYPE: FL guided pain mgmt statistic Intraoperative/procedural fluoroscopic services were provided. CLINICAL INDICATION:Male, 63 years old with history of M54.16 TRANSFORAMINAL EPI STEROID INJ; , PHH FINDINGS: Multiple fluoroscopic images of bilateral lumbar transforaminal steroid injection. No radiographic ev idence for common location. Total fluoroscopy time is 7.0 seconds DAP: [id number] mGym2 Please see the operative/procedural note for further details. [facility], , 08/14/2024 9:19 AM
[2024-08-14 09:25] VITALS: BP 93/61; PULSE 98
== END 2024-08-14 09:40 | disposition home or self-care (01) ==
LOC: ORPAIN 07:14
PROVIDERS: ATTEND Specialist
DX: M54.16 Radiculopathy, lumbar region (principal)
CPT/HCPCS: 64483; Q9966; J1010

== ENCOUNTER → 2024-09-21 | Outpatient (CLI) | payer MEDICAID ==
[2024-09-21 08:52] VITALS: BP 95/65; PULSE 98; RESP 16; TEMP 96.9
--- NOTE | 2024-09-21 15:16 | P.PAINPG ---
PQRS Measure Charge Sheet Comment: HISTORY OF PRESENT ILLNESS: A 63 yr old wheelchair bound male w history of Prostate CA w bony metastasis w male millinery blocker at side presents today w severe and chronic lumbosacral pain > 3 mo secondary to radiculopathy, spondylosis and facet arthropathy without myelopathy for evaluation s/p BL TFESI L5-S1 #1. Pt states he experienced 50% pain relief x 5 wks s/p procedure. Pt states pain level is provoked at 8 /10 in intensity, constant, localized in the lumbosacral spine, predominantly axial, sharp in character w occasional shooting pain towards the hips and groin. Pain is provoked by lifting, standing for periods > 20 min. Pain is alleviated by physician guided home stretches from Dr Rivera daily since May 2024, medications, topical, use of a wheelchair for ambulatory assistance, repositioning and rest . Interventional procedures include BL TFESI L5-S1 x1 (08/18) Medications include [place] 10/325mg, Toradol, Cannabis REVIEW OF ORGAN SYSTEMS: CONSTITUTIONAL: No fevers or chills. No recent weight loss. NEUROLOGICAL: + numbness and tingling along the distal extremities. No seizure disorders or headaches. MUSCULOSKELETAL: + pain PSYCHIATRIC: Denies current depression or suicidal thoughts. Physical Examinations : Constitutional : Cooperative , not in acute distress . Neurologic : Cranial nerve II to XII intact. No focal neurological deficits. Psychiatric : alert & oriented x 3. Matching mood & appropriate affect. Judgment & insight intact. Musculoskeletal : Cervical Spine Motor strength in the deltoid and biceps: Normal right side. Normal Left side Motor strength biceps and the wrist extensors: Normal right side . Normal left side Motor strength in the triceps muscle: Normal right side. Normal left side Deep tendon reflexes: Normal at the biceps. Normal at Brachioradialis. Normal at triceps Vertebral body tenderness to deep palpation over Cervical facet loading test: positive bilaterally Spurling test: positive bilaterally Neck distraction test: positive bilaterally Fany sign: positive bilaterally Lumbar spine Motor strength lower extremities ,thigh and legs 5/5 Right side , 5/5 Left side Deep tendon reflexes : Normal Knee Jerk. Normal Ankle Jerk Vertebral body tenderness over L5 Espinal Test positive BL L5-S1 Lumbar facet Loading Test: positive Right / positive Left Range of motion of the lumbar spine Flexion 30 degrees, extension 10 degrees Straight Leg Raise test: Left/ Right positive at degrees Tamar test: positive right / positive left. Severe tenderness over the Sacroiliac joint on the Right / Left sides Gaenslen test: positive bilaterally Seated flexion test: positive bilaterally. Sacral spine : Severe tenderness over the Sacroiliac joint: right side / left side Range of motion: Flexion of the lumbar spine <60 degrees Range of motion: Extension of the lumbar spine <20 degrees Gaenslen's Test positive Tamar test: positive right side / left side Thigh Thrust Test Sacral Thrust Test Imaging: MRI non contrast cervical spine from 05/15/24 reviewed MRI non contrast thoracic spine from 05/15/24 reviewed MRI non contrast lumbar spine from 05/11/24 reviewed Assessment/ Plan : Cervical radiculopathy, T6-T10 radiculopathy, L5-S1 spondylolisthesis w stenosis Recommendation of methylprednisone taper. Use, side effects, adverse reactions, safe storage discussed. Patient admits to cannabis use and therefore will nullify the narcotic agreement. No prescription narcotic drug prescribing until patient can test negative for cannabis and other illicit drugs. All questions answered. Spent greater than 30 minutes on patient care today. Dr Fletcher was available by phone for the evaluation of this patient. The time was used to review the medical records including relevant urine studies and Prescription history (MAPs), review of the available imaging, evaluation and examination of the patient, coordination of care with the medical staff and if applicable referring physicians, as well as creation of the medical record PQRS Narrative: Hx Alcohol Use (MH) No Home Medications: Ambulatory Orders Apixaban [Eliquis] 5 mg PO BID #60 tab 11/02/22 Rosuvastatin [Crestor] 5 mg PO DAILY 04/11/23 lisinopriL 2.5 mg PO QAM 04/11/23 Metoprolol Succinate (ER) [Toprol XL] 100 mg PO QAM 06/12/23 diazePAM [Valium] 5 mg PO DAILY 1 Days #2 tab 07/27/24 methylPREDNISolone Dose Pack [Medrol Dose Pack] 4 mg PO DIRECTED 6 Days #21 tab 09/21/24 Controlled Substance Measures - Controlled Substance Measures Is patient prescribed a controlled substance at discharge?: No
== END ==
LOC: PNWHC3 07:42
PROVIDERS: ATTEND Specialist
DX: M43.17 Spondylolisthesis, lumbosacral region (principal); M48.07 Spinal stenosis, lumbosacral region; M54.14 Radiculopathy, thoracic region; M54.12 Radiculopathy, cervical region
CPT/HCPCS: 99211

== ENCOUNTER → 2024-10-15 | Outpatient (CLI) | payer MEDICAID ==
--- NOTE | 2024-10-18 08:48 | PE ---
EXAMINATION TYPE: PET CT fusion skull to thigh DATE OF EXAM: 10/15/2024 CLINICAL INDICATION:Male, 63 years old with history of C61 prostate ca; TECHNIQUE: Following the intravenous administration of 5.95 mCi of Ga-68 Illuccix (PSMA), whole bod y images are performed from the skull base to the midthigh. Images are reviewed on the computer in t he coronal, axial, and sagittal planes. Reconstructed rotating images are created on independent wor kstation and reviewed on the computer. A non-contrast CT is performed in conjunction with the PET s can. CT DLP: 506.98 mGycm, Automated exposure control for dose reduction was used. COMPARISON: CT 03/18/2024, 12/09/2023, 08/30/2023, 01/10/2023, PET/CT None, MRI: 05/11/2024, 1120 2224, [facility] bone scan 03/18/2024, 12/09/2023, 08/30/2023, 01/10/2023 FINDINGS: Mediastinal SUV mean is 0.9. Hepatic parenchyma SUV mean is 6.5. SKULL BASE AND NECK: No suspicious radiotracer activity. CHEST, MEDIASTINUM, AND HILAR REGION: Prevascular space 9 mm lymph node with radiotracer activity. Demonstrates a maximum SUV of 10.8. Anterior pericardial space 1.1 cm lymph node with mild radiotracer activity. Demonstrates a maximum S UV of 4.3. ABDOMEN AND PELVIS: Interval increase in size of a large hypodense mass primarily within the left hepatic lobe with exten debby into the right hepatic lobe. Additional smaller lesions demonstrated throughout the liver. There is some calcification identified within the dominant mass within the right hepatic lobe. There are f ocal regions of decreased radiotracer uptake within the large left hepatic mass centrally with increa sed focal regions of significant radiotracer uptake in the periphery of the left hepatic mass and sma ller surrounding masses. Maximum SUV uptake within the left hepatic lobe is 19.3. Max SUV uptake within the right hepatic lobe is 16.8. Max SUV within the decreased radiotracer uptake region is 4.6. Small prostate gland without definitive radiotracer uptake however the urinary bladder is adjacent an d does demonstrate some radiotracer uptake. MUSCULOSKELETAL STRUCTURES: Large expansile soft tissue lesion with heterogenous sclerosis involving the left superior and inferi or pubic rami measuring 7.3 x 6.6 cm. Demonstrates a maximum SUV of 4.0. Additional similar type lesion involving the right hemisacrum. Demonstrates a maximum SUV of 4.3. Additional similar type lesion involving the left inferior pubic ramus measuring up to 4.0 cm. Demons trates a maximal SUV of 5.5. Redemonstration of sclerotic lesions involving the right iliac bone posteriorly. Demonstrates a maxim um SUV of 4.0. Intense radiotracer activity identified within the proximal right femur diaphysis to the level of the greater trochanter. Demonstrates a maximum SUV of 10.8. Additional focal region of radiotracer uptake identified within the left proximal femur greater troch anter. Demonstrates a maximum SUV of 8.5. Focal region of radiotracer uptake identified within the left scapula with a maximum SUV of 3.9. OTHER CT: Limited opacification of the right maxillary sinus. Mild mucosal thickening of the left sph enoid sinus. Mild bilateral carotid bulb calcifications right greater than left. Trace perihepatic as cites. Bilateral renal cysts identified the largest on the left measuring up to 5.1 cm. Mild atherosc lerotic calcification of the aorta and its branches. Eccentric wall thickening of the anterior urinar y bladder measuring up to 9 mm. Urinary bladder diverticulum containing calcifications. Multiple pelv ic phleboliths. Trace free fluid in the pelvis. Distal colonic diverticulosis without evidence for ac dana diverticulitis. Mild centrilobular and paraseptal emphysematous changes with bilateral apical bul la. Multilevel degenerative changes of the spine. IMPRESSION: 1. Progression of metastatic disease with increasing size and number of hypodense hepatic metastasis . There are regions of increased and decreased radiotracer activity within the lesions. The central r egions of decreased radiotracer activity may represent regions of burn out. 2. Prevascular space lymph node metastasis with additional possible anterior pericardial space lymph node metastasis. 3. Scattered regions of osseous metastasis with expansile sclerotic lesion involving the pubic bones . Majority of these lesions demonstrate low level radiotracer activity with more increased focal acti vity involving the left inferior pubic ramus metastatic lesion. Possibly related to posttreatment ebenezer nges. There is a large region of intense radiotracer activity involving the right proximal femur diap hysis consistent with progression of disease. Additional smaller focal region of radiotracer activity involving the left proximal femur greater trochanter. Small low level radiotracer activity identifie d within the left scapula concerning for metastasis. 4. Eccentric wall thickening of the urinary bladder which may represent posttreatment changes versus cystitis. Correlate with urinalysis. [facility], , 10/18/2024 8:46 AM
== END | disposition home or self-care (01) ==
LOC: RADPETMAIN 13:13
PROVIDERS: ATTEND Radiology Radiation Oncology
DX: C61 Malignant neoplasm of prostate (principal); C79.51 Secondary malignant neoplasm of bone; Z87.891 Personal history of nicotine dependence; C78.7 Secondary malignant neoplasm of liver and intrahepatic bile duct; N32.89 Other specified disorders of bladder; M89.8X8 Other specified disorders of bone, other site
CPT/HCPCS: 78815; A9596

== ENCOUNTER 2024-11-18 10:08 | Inpatient (IN) | payer MEDICAID ==
[2024-11-18] MEDS: SODIUM CHLORIDE 0.9% 1,000 ML IV ONE ×3 (10:37→18:52)
--- NOTE | 2024-11-18 10:37 | ED ---
Weakness HPI - General Chief complaint: Weakness Stated complaint: Weakness Time Seen by Provider: 11/18/24 10:09 Source: patient, RN notes reviewed Mode of arrival: EMS Limitations: no limitations - History of Present Illness Initial comments: This is a 63 year old male who presents to the emergency department for generalized weakness. States that over the last couple of months he found himself becoming increasingly weak. However over the last couple of weeks he has been unable to get off of his couch. Today when family and friends came over they tried to help him get up, but were unable to do so, prompting them to call EMS. Patient states that he feels like he just has no energy. He is also not eating or drinking much of anything. Denies any chest pain. He reports some shortness of breath and pain in the right rib cage with coughing. Denies any abdominal pain. He has minor nausea related to lack of eating. He does have a history of prostate cancer and has an upcoming appointment with Dr. Webster. Not currently receiving any treatment. States that this is metastatic and he had a PET scan last month. Patient noted to be in A-fib on arrival, which he does have a history of. Currently treated with Eliquis and metoprolol. MD Complaint: generalized weakness - Related Data Home Medications Medication Instructions Recorded Confirmed Rosuvastatin [Crestor] 5 mg PO DAILY 04/11/23 11/18/24 lisinopriL 2.5 mg PO QAM 04/11/23 11/18/24 Metoprolol Succinate (ER) [Toprol 50 mg PO HS 06/12/23 11/18/24 XL] Metoprolol Succinate [Toprol XL] 100 mg PO QAM 11/18/24 11/18/24 oxyCODONE-APAP 10-325MG [Percocet 1 tab PO QID 11/18/24 11/18/24 10-325 mg] Previous Rx's Medication Instructions Recorded Apixaban [Eliquis] 5 mg PO BID #60 tab 11/02/22 Allergies Allergy/AdvReac Type Severity Reaction Status Date / Time No Known Allergies Allergy Verified 11/18/24 12:30 Review of Systems ROS Statement: Those systems with pertinent positive or pertinent negative responses have been documented in the HPI. ROS Other: All systems not noted in ROS Statement are negative. Past Medical History Past Medical History: Atrial Fibrillation, Cancer, Hyperlipidemia, Hypertension, Musculoskeletal Disorder, Prostate Disorder Additional Past Medical History / Comment(s): HISTORY PROSTATE CA October 2022-chemo & radiation, current hormone tx., lesion on liver. History of Any Multi-Drug Resistant Organisms: None Reported Past Surgical History: No Surgical Hx Reported Additional Past Surgical History / Comment(s): TURP Past Anesthesia/Blood Transfusion Reactions: No Reported Reaction Additional Past Anesthesia/Blood Transfusion Reaction / Comment(s): NEVER HAD ANESTHESIA. Past Psychological History: No Psychological Hx Reported Smoking Status: Former smoker - Past Family History Mother Family Medical History: CVA/TIA, Hypertension Father Additional Family Medical History / Comment(s): Brain aneurysm. General Exam Limitations: no limitations General appearance: alert, in no apparent distress Head exam: Present: atraumatic, normocephalic, normal inspection Respiratory exam: Present: normal lung sounds bilaterally. Absent: respiratory distress, wheezes, rales, rhonchi, stridor Cardiovascular Exam: Present: irregular rhythm GI/Abdominal exam: Present: soft. Absent: distended, tenderness Neurological exam: Present: alert, oriented X3, CN II-XII intact Psychiatric exam: Present: normal affect, normal mood Skin exam: Present: warm, dry, intact, normal color. Absent: rash Course Vital Signs 11/18/24 11/18/24 11/18/24 10:09 11:23 12:51 Temperature 98.2 F Pulse Rate 107 H 119 H 105 H Respiratory 14 16 14 Rate Blood Pressure 94/56 92/65 100/51 O2 Sat by Pulse 97 98 99 Oximetry 11/18/24 14:24 Temperature Pulse Rate 93 Respiratory 16 Rate Blood Pressure 89/51 O2 Sat by Pulse 96 Oximetry Medical Decision Making - Medical Decision Making This is a 63-year-old male who presents to the emergency department for generalized weakness. Was pt. sent in by a medical professional or institution? @ -No Did you speak to anyone other than the patient for history? @ -No Did you review nursing and triage notes? @ -Yes, and I agree, it is accurate with regards to the patient's symptoms. Were old charts reviewed? @ -PET scan from 10/11/2024 demonstrating progression of metastatic disease in multiple areas including the bones and liver. Differential Diagnosis? @ -Differential Weakness: Hypoglycemia, shock, sepsis, hyponatremia, anemia, infection, HI, ETOH, adverse medicine reaction, overdose, stroke, this is not meant to be an all-inclusive list. EKG interpreted by me (3pts min.)? @ -EKG interpreted by me demonstrating the following: A-fib with RVR. Ventricular rate 106 bpm, QRS duration 88 ms, QTc 450 ms. X-rays interpreted by me (1pt min.)? @ -Chest x-ray obtained, my interpretation identifies no localized conso lidations or infiltrates. CT interpreted by me (1pt min.)? @ -CTA of the chest obtained. No interpretation identifies no evidence of a pulmonary embolus. U/S interpreted by me (1pt. min.)? @ -Not obtained What testing was considered but not performed? (CT, X-rays, U/S, labs)? Why? @ -None What meds were considered but not given? Why? @ -None Did you discuss the management of the patient with other professionals? @ -Yes, Dr. Shelton, who accepts the patient for admission Did you reconcile home meds? @ -Yes Was smoking cessation discussed for >3mins.? @ -No Was critical care preformed (if so, how long)? @ -No Were there social determinants of health that impacted care today? How? (Homelessness, low income, unemployed, alcoholism, drug addiction, transportation, low edu. Level, literacy, decrease access to med. care, residential, rehab)? @ -No Was there de-escalation of care discussed even if they declined? (Discuss DNR or withdrawal of care, Hospice)? @ -Nursing staff spoke with patient regarding a comfort care or hospice consult, which he was open to the idea of. What co-morbidities impacted this encounter? (DM, HTN, Smoking, COPD, CAD, Cancer, CVA, Hep., AIDS, mental health diagnosis, sleep apnea, morbid obesity)? @ -A-fib, prostate cancer Was patient admitted / discharged? @ -Admitted. Lab work demonstrates mild leukocytosis with a white blood cell count of 10.67. Lactic acid mildly elevated at 2.2. D-dimer elevated at 4.91, which is expected given patient's cancer history. LFTs are also elevated likely secondary to metastasis. Urinalysis negative for signs of infection. Chest x- ray reveals no acute process. CTA of the chest reveals no evidence of a pulmonary embolus. He has a small left pleural effusion as well as sclerotic density in the proximal left eighth rib suggestive of metastasis. Patient continues to go in and out of A-fib with RVR, with a heart rate ranging anywhere from 90 to 150 bpm. However, given that his heart rate was not sustained above 120 and he was also hypotensive, he was not started on medication for the A-fib with RVR. The hypotension was ranging anywhere from 80-100 systolically. States that his pressure does run on the lower side in the mid 90s to 100, however he does not typically drop in the 80s. He did also start to feel dizzy when it reached this level. He was given 2 L of IV fluids and started on maintenance fluids without any improvement in blood pressure. Patient also continues to remain very weak and was unable to ambulate. Patient admitted to medicine for his weakness as well as hypotension and A-fib with RVR. Consult placed for oncology as well as PT/OT. Case discussed with ED attending Dr. Khadar massey. Undiagnosed new problem with uncertain prognosis? @ -None Drug Therapy requiring intensive monitoring for toxicity (Heparin, Nitro, Insulin, Cardizem)? @ -None Were any procedures done? @ -None Diagnosis/symptom? @ -Weakness, hypotension, A-fib with RVR Acute, or Chronic, or Acute on Chronic? @ -Acute Uncomplicated (without systemic symptoms) or Complicated (systemic symptoms)? @ -Complicated Side effects of treatment? @ -None Exacerbation, Progression, or Severe Exacerbation] @ -Not applicable Poses a threat to life or bodily function? @ -Yes, patient unable to function in his current state - Lab Data Result diagrams: 11/18/24 10:35 11/18/24 10:35 Lab Results 11/18/24 11/18/24 11/18/24 Range/Units 10:35 10:35 10:35 WBC 10.67 H (4.50-10.00) 10*3/uL RBC 3.18 L (4.40-5.60) 10*6/uL Hgb 9.5 L (13.0-17.0) g/dL Hct 29.4 L (39.6-50.0) % MCV 92.5 (80.0-97.0) fL MCH 29.9 (27.0-32.0) pg MCHC 32.3 (32.0-37.0) g/dL Plt Count 483 H (140-440) 10*3/uL MPV 8.5 L (9.5-12.2) fL Immature Gran % (Auto) 1.5 % Neutrophils % 81.9 % Lymphocytes % 6.0 % Monocytes % 9.7 % Eosinophils % 0.4 % Basophils % 0.5 % Immature Gran # 0.16 H (0.00-0.04) 10*3/uL Neutrophils # 8.75 H (1.80-7.70) 10*3/uL Lymphocytes # 0.64 L (0.90-5.00) 10*3/uL Monocytes # 1.03 H (0.20-1.00) 10*3/uL Eosinophils # 0.04 (0.04-0.35) 10*3/uL Basophils # 0.05 (0.00-0.10) 10*3/uL PT 12.8 H (10.0-12.5) sec INR 1.2 H (<1.2) APTT 24.3 (22.0-30.0) sec D-Dimer (<0.60) mg/L FEU Sodium (137-145) mmol/L Potassium (3.5-5.1) mmol/L Chloride (98-107) mmol/L Carbon Dioxide (22-30) mmol/L Anion Gap mmol/L BUN (9-20) mg/dL Creatinine (0.66-1.25) mg/dL Est GFR (CKD-EPI)AfAm (>60 ml/min/1.73 sqM) Est GFR (CKD-EPI)NonAf (>60 ml/min/1.73 sqM) Glucose (74-99) mg/dL Lactic Ac Sepsis Rflx Plasma Lactic Acid Juan Francisco (0.7-2.0) mmol/L Calcium (8.4-10.2) mg/dL Magnesium (1.6-2.3) mg/dL Total Bilirubin (0.2-1.3) mg/dL AST (17-59) U/L ALT (4-49) U/L Alkaline Phosphatase (38-126) U/L Creatine Kinase (55-170) U/L Troponin I (0.000-0.034) ng/mL Total Protein (6.3-8.2) g/dL Albumin (3.5-5.0) g/dL TSH (0.465-4.680) mIU/L Urine Color Colorless Urine Appearance Cloudy (Clear) Urine pH 5.5 (5.0-8.0) Ur Specific [place] 1.007 (1.001-1.035) Urine Protein Negative (Negative) Urine Glucose (UA) Negative (Negative) Urine Ketones Negative (Negative) Urine Blood Negative (Negative) Urine Nitrite Negative (Negative) Urine Bilirubin Negative (Negative) Urine Urobilinogen <2.0 (<2.0) mg/dL Ur Leukocyte Esterase Negative (Negative) Urine WBC 1 (0-5) /hpf 11/18/24 11/18/24 11/18/24 Range/Units 10:35 10:35 10:35 WBC (4.50-10.00) 10*3/uL RBC (4.40-5.60) 10*6/uL Hgb (13.0-17.0) g/dL Hct (39.6-50.0) % MCV (80.0-97.0) fL MCH (27.0-32.0) pg MCHC (32.0-37.0) g/dL Plt Count (140-440) 10*3/uL MPV (9.5-12.2) fL Immature Gran % (Auto) % Neutrophils % % Lymphocytes % % Monocytes % % Eosinophils % % Basophils % % Immature Gran # (0.00-0.04) 10*3/uL Neutrophils # (1.80-7.70) 10*3/uL Lymphocytes # (0.90-5.00) 10*3/uL Monocytes # (0.20-1.00) 10*3/uL Eosinophils # (0.04-0.35) 10*3/uL Basophils # (0.00-0.10) 10*3/uL PT (10.0-12.5) sec INR (<1.2) APTT (22.0-30.0) sec D-Dimer (<0.60) mg/L FEU Sodium 131 L (137-145) mmol/L Potassium 4.3 (3.5-5.1) mmol/L Chloride 95 L (98-107) mmol/L Carbon Dioxide 28 (22-30) mmol/L Anion Gap 8 mmol/L BUN 12 (9-20) mg/dL Creatinine 0.40 L (0.66-1.25) mg/dL Est GFR (CKD-EPI)AfAm >90 (>60 ml/min/1.73 sqM) Est GFR (CKD-EPI)NonAf >90 (>60 ml/min/1.73 sqM) Glucose 94 (74-99) mg/dL Lactic Ac Sepsis Rflx Plasma Lactic Acid Juan Francisco 2.2 H* (0.7-2.0) mmol/L Calcium 8.6 (8.4-10.2) mg/dL Magnesium 2.1 (1.6-2.3) mg/dL Total Bilirubin 1.0 (0.2-1.3) mg/dL AST 258 H (17-59) U/L ALT 83 H (4-49) U/L Alkaline Phosphatase 671 H (38-126) U/L Creatine Kinase 499 H (55-170) U/L Troponin I <0.012 (0.000-0.034) ng/mL Total Protein 5.8 L (6.3-8.2) g/dL Albumin 2.8 L (3.5-5.0) g/dL TSH (0.465-4.680) mIU/L Urine Color Urine Appearance (Clear) Urine pH (5.0-8.0) Ur Specific [place] (1.001-1.035) Urine Protein (Negative) Urine Glucose (UA) (Negative) Urine Ketones (Negative) Urine Blood (Negative) Urine Nitrite (Negative) Urine Bilirubin (Negative) Urine Urobilinogen (<2.0) mg/dL Ur Leukocyte Esterase (Negative) Urine WBC (0-5) /hpf 11/18/24 11/18/24 11/18/24 Range/Units 10:35 11:03 11:19 WBC (4.50-10.00) 10*3/uL RBC (4.40-5.60) 10*6/uL Hgb (13.0-17.0) g/dL Hct (39.6-50.0) % MCV (80.0-97.0) fL MCH (27.0-32.0) pg MCHC (32.0-37.0) g/dL Plt Count (140-440) 10*3/uL MPV (9.5-12.2) fL Immature Gran % (Auto) % Neutrophils % % Lymphocytes % % Monocytes % % Eosinophils % % Basophils % % Immature Gran # (0.00-0.04) 10*3/uL Neutrophils # (1.80-7.70) 10*3/uL Lymphocytes # (0.90-5.00) 10*3/uL Monocytes # (0.20-1.00) 10*3/uL Eosinophils # (0.04-0.35) 10*3/uL Basophils # (0.00-0.10) 10*3/uL PT (10.0-12.5) sec INR (<1.2) APTT (22.0-30.0) sec D-Dimer 4.91 H (<0.60) mg/L FEU Sodium (137-145) mmol/L Potassium (3.5-5.1) mmol/L Chloride (98-107) mmol/L Carbon Dioxide (22-30) mmol/L Anion Gap mmol/L BUN (9-20) mg/dL Creatinine (0.66-1.25) mg/dL Est GFR (CKD-EPI)AfAm (>60 ml/min/1.73 sqM) Est GFR (CKD-EPI)NonAf (>60 ml/min/1.73 sqM) Glucose (74-99) mg/dL Lactic Ac Sepsis Rflx Y Plasma Lactic Acid Juan Francisco (0.7-2.0) mmol/L Calcium (8.4-10.2) mg/dL Magnesium (1.6-2.3) mg/dL Total Bilirubin (0.2-1.3) mg/dL AST (17-59) U/L ALT (4-49) U/L Alkaline Phosphatase (38-126) U/L Creatine Kinase (55-170) U/L Troponin I (0.000-0.034) ng/mL Total Protein (6.3-8.2) g/dL Albumin (3.5-5.0) g/dL TSH 3.700 (0.465-4.680) mIU/L Urine Color Urine Appearance (Clear) Urine pH (5.0-8.0) Ur Specific [place] (1.001-1.035) Urine Protein (Negative) Urine Glucose (UA) (Negative) Urine Ketones (Negative) Urine Blood (Negative) Urine Nitrite (Negative) Urine Bilirubin (Negative) Urine Urobilinogen (<2.0) mg/dL Ur Leukocyte Esterase (Negative) Urine WBC (0-5) /hpf - Radiology Data Radiology results: report reviewed, image reviewed Disposition Clinical Impression: Hypotension, Weakness, Atrial fibrillation with RVR Disposition: ADMITTED IP TO THIS HOSP
[2024-11-18] MEDS: SODIUM CHLORIDE 0.9% 1,000 ML IV STA (10:38)
[2024-11-18 10:47] LABS: Basophils # (A) 0.05 10*3/uL (0.00-0.10); Basophils % (A) 0.5 %; Eosinophils # (A) 0.04 10*3/uL (0.04-0.35); Eosinophils % (A) 0.4 %; HCT 29.4 % (39.6-50.0); HGB 9.5 g/dL (13.0-17.0); Lymphocytes # (A) 0.64 10*3/uL (0.90-5.00); MCH 29.9 pg (27.0-32.0); MCHC 32.3 g/dL (32.0-37.0); MCV 92.5 fL (80.0-97.0); Mean Platelet Volume 8.5 fL (9.5-12.2); Monocytes # (A) 1.03 10*3/uL (0.20-1.00); Monocytes % (A) 9.7 %; Neutrophils # (A) 8.75 10*3/uL (1.80-7.70); Neutrophils % (A) 81.9 %; Platelet Count 483 10*3/uL (140-440); RBC 3.18 10*6/uL (4.40-5.60); RDW 14.5 % (11.5-14.5); WBC 10.67 10*3/uL (4.50-10.00)
[2024-11-18 10:58] LABS: INR 1.2 (<1.2); Partial Thromboplastin Time 24.3 sec (22.0-30.0); Prothrombin Time 12.8 sec (10.0-12.5)
[2024-11-18 11:02] LABS: ALT 83 U/L (4-49); AST 258 U/L (17-59); African American GFR (CKD) >90 (>60 ml/min/1.73 sqM); Albumin 2.8 g/dL (3.5-5.0); Alkaline Phosphatase 671 U/L (38-126); Anion Gap 8 mmol/L; Blood Urea Nitrogen 12 mg/dL (9-20); Calcium 8.6 mg/dL (8.4-10.2); Carbon Dioxide 28 mmol/L (22-30); Chloride 95 mmol/L (98-107); Creatine Kinase 499 U/L (55-170); Glucose 94 mg/dL (74-99); Magnesium 2.1 mg/dL (1.6-2.3); Non-African American GFR(CKD) >90 (>60 ml/min/1.73 sqM); Potassium 4.3 mmol/L (3.5-5.1); Sodium 131 mmol/L (137-145); Total Protein 5.8 g/dL (6.3-8.2)
--- NOTE | 2024-11-18 11:05 | XR ---
EXAMINATION TYPE: XR chest 2V DATE OF EXAM: 11/18/2024 10:49 AM COMPARISON: 01/10/2023 CLINICAL INDICATION: Male, 63 years old with history of Weakness, , TECHNIQUE: AP and lateral views FINDINGS: Heart normal size. Strandy atelectasis right base. Mild hyperinflation. No consolidation or pleural e ffusion. IMPRESSION: COPD. No acute cardiopulmonary process. [facility], Workstation: [facility], 11/18/2024 11:03 AM
[2024-11-18 12:02] LABS: Appearance,Urine Cloudy (Clear); Bilirubin,Urine Negative (Negative); Blood,Urine Negative (Negative); Color,Urine Colorless; Glucose,Urine (UA) Negative (Negative); Ketones,Urine Negative (Negative); Leukocyte Esterase,Urine Negative (Negative); Nitrite,Urine Negative (Negative); PH, Urine 5.5 (5.0-8.0); Protein,Urine Negative (Negative); Specific Gravity,Urine 1.007 (1.001-1.035); Urobilinogen,Urine <2.0 mg/dL (<2.0); WBC,Urine 1 /hpf (0-5)
--- NOTE | 2024-11-18 13:11 | CT ---
EXAMINATION TYPE: CT chest angio for PE DATE OF EXAM: 11/18/2024 COMPARISON: CT chest, abdomen and pelvis dated 03/18/2024 CLINICAL INDICATION: Male, 63 years old with history of PAIGE, tachycardia, hx of cancer; PHH, PAIGE, tac hycardia, history of cancer, SOB or PAIN TECHNIQUE: Ct angiogram of the chest performed with without and with IV Contrast, patient injected with 100 ml m L of Isovue 370. MIP images are created and reviewed. CT DLP: 255.[address] CTD: mGy Automated exposure control for dose reduction was used. FINDINGS: There are moderate emphysematous changes with an upper lobe predominance. There is interval development of a small left effusion and and a 10.2 mm pleural-based nodule in the left lower lobe posteriorly There is no airspace consolidation. There is no pneumothorax. Great vessels of the chest are normal and there is no filling defect within the pulmonary arterial ci rculation to suggest pulmonary embolism. There is no mediastinal, hilar or axillary adenopathy. There is a sclerotic density in the proximal left eighth rib suspicious for metastatic disease IMPRESSION: 1. No evidence of pulmonary embolus. 2. Interval development of a small left pleural effusion and 10 mm pleural-based nodule. 3. Sclerotic density in the proximal left eighth rib. 4. Above combination of findings suggests the presence of metastatic prostate cancer to the thorax. [facility], , 11/18/2024 1:09 PM
[2024-11-18] MEDS ORDERED: ONDANSETRON 4 MG/2 ML VIAL IVP PRN (14:02)
[2024-11-18] MEDS ORDERED: NALOXONE 0.4 MG/ML 1 ML VIAL IV PRN (14:02)
[2024-11-18] MEDS ORDERED: ACETAMINOPHEN TAB 325 MG TAB PO PRN (14:02)
[2024-11-18] MEDS: HYDROcodone/APAP 5-325MG 1 EACH TAB PO PRN (17:32)
[2024-11-18] MEDS: oxyCODONE-APAP 10-325MG 1 EACH TAB PO SCH (18:54)
[2024-11-18] MEDS ORDERED: METOPROLOL SUCCINATE (ER) 50 MG TAB.ER.24H PO SCH (21:00)
[2024-11-18] MEDS: METOPROLOL TARTRATE 25 MG TAB PO SCH (21:27)
[2024-11-18] MEDS: APIXABAN 5 MG TAB PO SCH (21:36)
[2024-11-18] MEDS: HYDROcodone/APAP 5-325MG 1 EACH TAB PO ONE (22:26)
[2024-11-18 23:17] LABS: HCT 26.3 % (39.6-50.0); HGB 8.5 g/dL (13.0-17.0); MCH 30.1 pg (27.0-32.0); MCHC 32.3 g/dL (32.0-37.0); MCV 93.3 fL (80.0-97.0); Mean Platelet Volume 8.4 fL (9.5-12.2); Platelet Count 454 10*3/uL (140-440); RBC 2.82 10*6/uL (4.40-5.60); RDW 14.5 % (11.5-14.5); WBC 9.81 10*3/uL (4.50-10.00)
[2024-11-19] MEDS: oxyCODONE-APAP 10-325MG 1 EACH TAB PO SCH (01:53)
[2024-11-19] MEDS: PREGABALIN 75 MG CAP PO STA (06:28)
[2024-11-19 08:17] LABS: Basophils # (A) 0.06 X 10*3/uL (0.00-0.10); Basophils % (A) 0.7 %; Eosinophils # (A) 0.09 X 10*3/uL (0.04-0.35); HCT 28.3 % (39.6-50.0); HGB 8.7 g/dL (13.0-17.0); Lymphocytes # (A) 0.54 X 10*3/uL (0.90-5.00); Lymphocytes % (A) 6.1 %; MCH 29.3 pg (27.0-32.0); MCHC 30.7 g/dL (32.0-37.0); MCV 95.3 FL (80.0-97.0); Mean Platelet Volume 9.1 FL (9.5-12.2); Monocytes # (A) 0.86 X 10*3/uL (0.20-1.00); Monocytes % (A) 9.7 %; NRBC Per 100 WBC 0 X 10*3/uL (0.00-0.01); Neutrophils # (A) 7.16 X 10*3/uL (1.80-7.70); Neutrophils % (A) 80.5 %; Platelet Count 529 X 10*3/uL (140-440); RBC 2.97 X 10*6/uL (4.40-5.60); RDW 14.8 % (11.5-14.5); WBC 8.89 X 10*3/uL (4.50-10.00)
[2024-11-19 08:38] LABS: Blood Urea Nitrogen 7.9 mg/dL (9.0-27.0); Glucose 84 mg/dL (70-110)
[2024-11-19 08:39] LABS: ALT 71 U/L (10-49); AST 242 U/L (14-35); Albumin 2.6 g/dL (3.8-4.9); Albumin/Globulin Ratio 1.13 Ratio (1.60-3.17); Alkaline Phosphatase 648 U/L (41-126); Bilirubin, Conjugated 0.39 mg/dL (0.20-0.40); Bilirubin,Unconjugated 0.11 mg/dL (0.20-1.00); Calcium 8.1 mg/dL (8.7-10.3); Carbon Dioxide 23.9 mmol/L (21.6-31.8); Chloride 104 mmol/L (96-109); Globulin 2.3 g/dL (1.6-3.3); Sodium 141 mmol/L (135-145); Total Bilirubin 0.5 mg/dL (0.3-1.2); Total Protein 4.9 g/dL (6.2-8.2)
[2024-11-19] MEDS: ATORVASTATIN 10 MG TAB PO SCH (08:57)
[2024-11-19] MEDS: PANTOPRAZOLE 40 MG/10 ML VIAL IV SCH (08:59)
[2024-11-19] MEDS ORDERED: METOPROLOL SUCCINATE (ER) 100 MG TAB.ER.24H PO SCH (09:00)
[2024-11-19] MEDS: SODIUM CHLORIDE 0.9% 1,000 ML IV SCH (14:29)
--- NOTE | 2024-11-19 16:16 | P.CONS ---
History of Present Illness - Reason for Consult Consult date: 11/19/24 Refractory Pain - Chief Complaint pain and weakness - History of Present Illness Mr. Melchor is a 63 years old gentleman with a history of metastatic prostate cancer, the patient presented with osseous metastatic disease in the pelvis status post palliative radiotherapy to the dose of 30 Hathaway in 10 fractions that is completed in January 01, 2024 the patient has recurrent pain and he underwent a reirradiation to the sacrum/SI joints to the dose of 20 Hathaway in 10 fractions he finished his treatment on June 19, 2024. The patient the patient presented to the hospital because of weakness and pain in lower extremities mainly on the right hip, he is unable to ambulate or walk he has lost weight because he was unable to prepare his meal at home. PET scan in 10/15/24 revealed interval increase in the size of large hypodense mass in the left hepatic lobe, progression of metastatic disease with increased size and number of hypodense hepatic metastasis disease, osseous metastatic disease involving the pelvic bones and a large region of intense radiotracer activity involving the right proximal femur diaphysis consistent with progression of disease , Review of Systems Constitutional: Reports as per HPI Ears, nose, mouth and throat: Reports as per HPI Cardiovascular: Reports as per HPI Respiratory: Reports as per HPI Gastrointestinal: Reports abdominal pain, Reports constipation Genitourinary: Reports as per HPI Musculoskeletal: Reports gait dysfunction, Reports leg numbness/tingling, Reports limitation of motion, Reports shooting leg pain Integumentary: Reports as per HPI Neurological: Reports as per HPI Psychiatric: Reports as per HPI Endocrine: Reports as per HPI Hematologic/Lymphatic: Reports as per HPI Allergic/Immunologic: Reports as per HPI Past Medical History Past Medical History: Atrial Fibrillation, Cancer, Hyperlipidemia, Hypertension, Musculoskeletal Disorder, Prostate Disorder Additional Past Medical History / Comment(s): HISTORY PROSTATE CA October 2022-chemo & radiation, current hormone tx., lesion on liver. History of Any Multi-Drug Resistant Organisms: None Reported Past Surgical History: No Surgical Hx Reported Additional Past Surgical History / Comment(s): TURP Past Anesthesia/Blood Transfusion Reactions: No Reported Reaction Additional Past Anesthesia/Blood Transfusion Reaction / Comm: NEVER HAD ANESTHESIA. Smoking Status: Former smoker - Past Family History Mother Family Medical History: CVA/TIA, Hypertension Father Additional Family Medical History / Comment(s): Brain aneurysm. Medications and Allergies Home Medications Medication Instructions Recorded Confirmed Type Apixaban [Eliquis] 5 mg PO BID #60 tab 11/02/22 11/18/24 Rx Rosuvastatin [Crestor] 5 mg PO DAILY 04/11/23 11/18/24 History lisinopriL 2.5 mg PO QAM 04/11/23 11/18/24 History Metoprolol Succinate (ER) [Toprol 50 mg PO HS 06/12/23 11/18/24 History XL] Metoprolol Succinate [Toprol XL] 100 mg PO QAM 11/18/24 11/18/24 History oxyCODONE-APAP 10-325MG [Percocet 1 tab PO QID 11/18/24 11/18/24 History 10-325 mg] Allergies Allergy/AdvReac Type Severity Reaction Status Date / Time No Known Allergies Allergy Verified 11/18/24 12:30 Physical Exam Vitals: Vital Signs Temp Pulse Pulse Resp BP BP Pulse Ox 11/19/24 13:24 98.5 F 111 H 17 91/57 99 11/19/24 12:25 110 H 90/62 11/19/24 09:00 120 H 18 85/65 98 11/19/24 06:00 98.1 F 98 16 85/62 98 11/19/24 05:00 105 H 84/57 11/19/24 04:00 103 H 18 86/62 97 11/19/24 01:51 97.9 F 107 H 18 88/62 96 11/19/24 00:00 103 H 87/62 96 11/18/24 23:30 98 82/58 96 11/18/24 22:00 110 H 92/65 97 11/18/24 21:56 112 H 85/64 96 11/18/24 21:00 95 85/60 11/18/24 20:25 108 H 18 82/57 97 11/18/24 19:52 98.2 F 102 H 18 83/54 97 11/18/24 19:13 80/53 11/18/24 18:53 105 H 18 82/55 99 11/18/24 17:30 99.0 F 107 H 18 87/65 100 11/18/24 16:00 112 H 16 85/59 97 Intake and Output 11/19/24 11/19/24 11/19/24 06:59 14:59 22:59 Output Total 150 Balance -150 Output: Urine 150 Other: Voiding Method Urinal # Voids 1 Weight 65.771 kg - Constitutional General appearance: mild distress - EENT Eyes: PERRLA - Neck Neck: normal ROM - Respiratory Respiratory: bilateral: CTA - Cardiovascular Rhythm: regular - Integumentary Integumentary: pale - Musculoskeletal Musculoskeletal: generalized weakness - Psychiatric Psychiatric: A&O x's 3, appropriate affect, intact judgment & insight Results CBC & Chem 7: 11/19/24 05:35 11/19/24 05:35 Labs: Abnormal Lab Results - Last 24 Hours (Table) 11/18/24 11/19/24 11/19/24 Range/Units 22:56 05:35 05:35 RBC 2.82 L 2.97 L (4.40-5.60) 10*6/uL Hgb 8.5 L 8.7 L (13.0-17.0) g/dL Hct 26.3 L 28.3 L (39.6-50.0) % MCHC 30.7 L (32.0-37.0) g/dL RDW 14.8 H (11.5-14.5) % Plt Count 454 H 529 H (140-440) 10*3/uL MPV 8.4 L 9.1 L (9.5-12.2) fL Immature Gran # 0.18 H (0.00-0.04) X 10*3/uL Lymphocytes # 0.54 L (0.90-5.00) X 10*3/uL Anion Gap (4.00-12.00) mmol/L BUN (9.0-27.0) mg/dL Creatinine (0.6-1.5) mg/dL Calcium (8.7-10.3) mg/dL Iron 50 L (65-175) UG/DL Ferritin 7550.0 H (22.0-322.0) ng/mL Unconjugated Bilirubin (0.20-1.00) mg/dL AST (14-35) U/L ALT (10-49) U/L Alkaline Phosphatase (41-126) U/L Total Protein (6.2-8.2) g/dL Albumin (3.8-4.9) g/dL Albumin/Globulin Ratio (1.60-3.17) Ratio Vitamin B12 2542.0 H (200.0-944.0) pg/mL // Range/Units 05:35 RBC (4.40-5.60) 10*6/uL Hgb (13.0-17.0) g/dL Hct (39.6-50.0) % MCHC (32.0-37.0) g/dL RDW (11.5-14.5) % Plt Count (140-440) 10*3/uL MPV (9.5-12.2) fL Immature Gran # (0.00-0.04) X 10*3/uL Lymphocytes # (0.90-5.00) X 10*3/uL Anion Gap 13.10 H (4.00-12.00) mmol/L BUN 7.9 L (9.0-27.0) mg/dL Creatinine 0.5 L (0.6-1.5) mg/dL Calcium 8.1 L (8.7-10.3) mg/dL Iron (65-175) UG/DL Ferritin (22.0-322.0) ng/mL Unconjugated Bilirubin 0.11 L (0.20-1.00) mg/dL AST 242 H (14-35) U/L ALT 71 H (10-49) U/L Alkaline Phosphatase 648 H (41-126) U/L Total Protein 4.9 L (6.2-8.2) g/dL Albumin 2.6 L (3.8-4.9) g/dL Albumin/Globulin Ratio 1.13 L (1.60-3.17) Ratio Vitamin B12 (200.0-944.0) pg/mL Assessment and Plan Assessment: 63 years old gentleman with hormonal resistant metastatic prostate cancer status post palliative radiotherapy to the pelvis and reirradiation to the sacrum SI joint which he completed in June 19, 2024. Recently presented with a progression of metastatic prostate cancer , most recent PET scan showed a large region of intense radiotracer activity involving the right proximal femur diap hysis consisting with the progression of disease Plan: Previous radiotherapy plans were reviewed, images of the PET scan were reviewed as well, the patient is having severe pain related to the large lesion of metastatic disease involving the proximal right femur diaphysis. we recommend to have a palliative course of external beam radiation therapy to the right femur diaphysis to control his pain. I talked to the patient about the rationale the technique and the potential acute and late side effects of the treatment, he agreed to proceed with the radiotherapy. We are planning to do simulation probably tomorrow or November 23 to proceed with the treatment in the same day.
--- NOTE | 2024-11-19 23:38 | P.HPIM ---
History of Present Illness This is a pleasant 63 years old male with past medical history of multiple medical problems as below Patient was diagnosed with prostate cancer last year and he was started with chemotherapy and finished his treatment by the end of last year and then because of his good tolerance his oncologist Dr. Webster extended this treatment for another 2 cycles Presents now because of generalized weakness and hypotension Patient has been having pain for about 1 month he is pain mainly in the right groin extending to the right leg and right knee. He has difficulty moving of his right lower extremity because of this. Comparably his left side with no such problem Also complains from feet numbness However patient denied chest pain or dyspnea. No abdominal pain or vomiting. He feels constipated from pain medication. No specific urology symptoms or urinary signs symptoms Past Medical History Past Medical History: Atrial Fibrillation, Cancer, Hyperlipidemia, Hypertension, Musculoskeletal Disorder, Prostate Disorder Additional Past Medical History / Comment(s): HISTORY PROSTATE CA October 2022-chemo & radiation, current hormone tx., lesion on liver. History of Any Multi-Drug Resistant Organisms: None Reported Past Surgical History: No Surgical Hx Reported Additional Past Surgical History / Comment(s): TURP Past Anesthesia/Blood Transfusion Reactions: No Reported Reaction Additional Past Anesthesia/Blood Transfusion Reaction / Comment(s): NEVER HAD ANESTHESIA. Past Psychological History: No Psychological Hx Reported Smoking Status: Former smoker - Past Family History Mother Family Medical History: CVA/TIA, Hypertension Father Additional Family Medical History / Comment(s): Brain aneurysm. Medications and Allergies Home Medications Medication Instructions Recorded Confirmed Type Apixaban [Eliquis] 5 mg PO BID #60 tab 11/02/22 11/18/24 Rx Rosuvastatin [Crestor] 5 mg PO DAILY 04/11/23 11/18/24 History lisinopriL 2.5 mg PO QAM 04/11/23 11/18/24 History Metoprolol Succinate (ER) [Toprol 50 mg PO HS 06/12/23 11/18/24 History XL] Metoprolol Succinate [Toprol XL] 100 mg PO QAM 11/18/24 11/18/24 History oxyCODONE-APAP 10-325MG [Percocet 1 tab PO QID 11/18/24 11/18/24 History 10-325 mg] Allergies Allergy/AdvReac Type Severity Reaction Status Date / Time No Known Allergies Allergy Verified 11/18/24 12:30 Physical Exam Vitals: Vital Signs Temp Pulse Pulse Resp BP BP Pulse Ox 11/19/24 09:00 120 H 18 85/65 98 11/19/24 06:00 98.1 F 98 16 85/62 98 11/19/24 05:00 105 H 84/57 11/19/24 04:00 103 H 18 86/62 97 11/19/24 01:51 97.9 F 107 H 18 88/62 96 11/19/24 00:00 103 H 87/62 96 11/18/24 23:30 98 82/58 96 11/18/24 22:00 110 H 92/65 97 11/18/24 21:56 112 H 85/64 96 11/18/24 21:00 95 85/60 11/18/24 20:25 108 H 18 82/57 97 11/18/24 19:52 98.2 F 102 H 18 83/54 97 11/18/24 19:13 80/53 11/18/24 18:53 105 H 18 82/55 99 11/18/24 17:30 99.0 F 107 H 18 87/65 100 11/18/24 16:00 112 H 16 85/59 97 11/18/24 15:00 101 H 18 84/57 11/18/24 14:24 93 16 89/51 96 11/18/24 12:51 105 H 14 100/51 99 11/18/24 11:23 119 H 16 92/65 98 11/18/24 10:09 98.2 F 107 H 14 94/56 97 Intake and Output 11/18/24 11/19/24 11/19/24 22:59 06:59 14:59 Output Total 400 150 Balance -400 -150 Output: Urine 400 150 Other: # Voids 2 1 Results CBC & Chem 7: 11/19/24 05:35 11/19/24 05:35 Labs: Abnormal Lab Results - Last 24 Hours (Table) 11/18/24 11/18/24 11/18/24 Range/Units 10:35 10:35 10:35 WBC 10.67 H (4.50-10.00) 10*3/uL RBC 3.18 L (4.40-5.60) 10*6/uL Hgb 9.5 L (13.0-17.0) g/dL Hct 29.4 L (39.6-50.0) % MCHC (32.0-37.0) g/dL RDW (11.5-14.5) % Plt Count 483 H (140-440) 10*3/uL MPV 8.5 L (9.5-12.2) fL Immature Gran # 0.16 H (0.00-0.04) 10*3/uL Neutrophils # 8.75 H (1.80-7.70) 10*3/uL Lymphocytes # 0.64 L (0.90-5.00) 10*3/uL Monocytes # 1.03 H (0.20-1.00) 10*3/uL PT 12.8 H (10.0-12.5) sec INR 1.2 H (<1.2) D-Dimer (<0.60) mg/L FEU Sodium 131 L (137-145) mmol/L Chloride 95 L (98-107) mmol/L Anion Gap (4.00-12.00) mmol/L BUN (9.0-27.0) mg/dL Creatinine 0.40 L (0.66-1.25) mg/dL Plasma Lactic Acid Juan Francisco (0.7-2.0) mmol/L Calcium (8.7-10.3) mg/dL Iron (65-175) UG/DL Unconjugated Bilirubin (0.20-1.00) mg/dL AST 258 H (17-59) U/L ALT 83 H (4-49) U/L Alkaline Phosphatase 671 H (38-126) U/L Creatine Kinase 499 H (55-170) U/L Total Protein 5.8 L (6.3-8.2) g/dL Albumin 2.8 L (3.5-5.0) g/dL Albumin/Globulin Ratio (1.60-3.17) Ratio 11/18/24 11/18/24 11/18/24 Range/Units 10:35 11:19 22:56 WBC (4.50-10.00) 10*3/uL RBC 2.82 L (4.40-5.60) 10*6/uL Hgb 8.5 L (13.0-17.0) g/dL Hct 26.3 L (39.6-50.0) % MCHC (32.0-37.0) g/dL RDW (11.5-14.5) % Plt Count 454 H (140-440) 10*3/uL MPV 8.4 L (9.5-12.2) fL Immature Gran # (0.00-0.04) 10*3/uL Neutrophils # (1.80-7.70) 10*3/uL Lymphocytes # (0.90-5.00) 10*3/uL Monocytes # (0.20-1.00) 10*3/uL PT (10.0-12.5) sec INR (<1.2) D-Dimer 4.91 H (<0.60) mg/L FEU Sodium (137-145) mmol/L Chloride (98-107) mmol/L Anion Gap (4.00-12.00) mmol/L BUN (9.0-27.0) mg/dL Creatinine (0.66-1.25) mg/dL Plasma Lactic Acid Juan Francisco 2.2 H* (0.7-2.0) mmol/L Calcium (8.7-10.3) mg/dL Iron (65-175) UG/DL Unconjugated Bilirubin (0.20-1.00) mg/dL AST (17-59) U/L ALT (4-49) U/L Alkaline Phosphatase (38-126) U/L Creatine Kinase (55-170) U/L Total Protein (6.3-8.2) g/dL Albumin (3.5-5.0) g/dL Albumin/Globulin Ratio (1.60-3.17) Ratio 11/19/24 11/19/24 11/19/24 Range/Units 05:35 05:35 05:35 WBC (4.50-10.00) 10*3/uL RBC 2.97 L (4.40-5.60) 10*6/uL Hgb 8.7 L (13.0-17.0) g/dL Hct 28.3 L (39.6-50.0) % MCHC 30.7 L (32.0-37.0) g/dL RDW 14.8 H (11.5-14.5) % Plt Count 529 H (140-440) 10*3/uL MPV 9.1 L (9.5-12.2) fL Immature Gran # 0.18 H (0.00-0.04) 10*3/uL Neutrophils # (1.80-7.70) 10*3/uL Lymphocytes # 0.54 L (0.90-5.00) 10*3/uL Monocytes # (0.20-1.00) 10*3/uL PT (10.0-12.5) sec INR (<1.2) D-Dimer (<0.60) mg/L FEU Sodium (137-145) mmol/L Chloride (98-107) mmol/L Anion Gap 13.10 H (4.00-12.00) mmol/L BUN 7.9 L (9.0-27.0) mg/dL Creatinine 0.5 L (0.66-1.25) mg/dL Plasma Lactic Acid Juan Francisco (0.7-2.0) mmol/L Calcium 8.1 L (8.7-10.3) mg/dL Iron 50 L (65-175) UG/DL Unconjugated Bilirubin 0.11 L (0.20-1.00) mg/dL AST 242 H (17-59) U/L ALT 71 H (4-49) U/L Alkaline Phosphatase 648 H (38-126) U/L Creatine Kinase (55-170) U/L Total Protein 4.9 L (6.3-8.2) g/dL Albumin 2.6 L (3.5-5.0) g/dL Albumin/Globulin Ratio 1.13 L (1.60-3.17) Ratio Assessment and Plan Assessment: Generalized weakness Hypotension Prostate cancer s/p chemotherapy and radiotherapy Right hip pain and right thigh pain most likely related to metastatic disease to the bone Atrial fibrillation Hypertension Hyperlipidemia Plan: Continue with pain management Continue with aggressive hydration Hematology/oncology team consult Radiation oncology consult Check occult blood in the stool Check serum cortisol and TSH Resume home medication Further recommendation based on the clinical course GI prophylaxis: Protonix DVT prophylaxis: Subcu heparin Prognosis is guarded
[2024-11-20 08:04] LABS: Basophils # (A) 0.05 X 10*3/uL (0.00-0.10); Basophils % (A) 0.6 %; Eosinophils # (A) 0.11 X 10*3/uL (0.04-0.35); Eosinophils % (A) 1.2 %; HCT 28.4 % (39.6-50.0); HGB 8.7 g/dL (13.0-17.0); Lymphocytes # (A) 0.58 X 10*3/uL (0.90-5.00); Lymphocytes % (A) 6.6 %; MCH 29.6 pg (27.0-32.0); MCHC 30.6 g/dL (32.0-37.0); MCV 96.6 FL (80.0-97.0); Mean Platelet Volume 9.1 FL (9.5-12.2); Monocytes # (A) 0.84 X 10*3/uL (0.20-1.00); Monocytes % (A) 9.5 %; NRBC Per 100 WBC 0 X 10*3/uL (0.00-0.01); Neutrophils # (A) 7.09 X 10*3/uL (1.80-7.70); Neutrophils % (A) 80.2 %; Platelet Count 513 X 10*3/uL (140-440); RBC 2.94 X 10*6/uL (4.40-5.60); WBC 8.84 X 10*3/uL (4.50-10.00)
[2024-11-20 08:32] LABS: Blood Urea Nitrogen 5.8 mg/dL (9.0-27.0); Calcium 8.3 mg/dL (8.7-10.3); Carbon Dioxide 21.5 mmol/L (21.6-31.8); Chloride 104 mmol/L (96-109); Glucose 86 mg/dL (70-110); Potassium 3.9 mmol/L (3.5-5.5); Sodium 138 mmol/L (135-145)
--- NOTE | 2024-11-20 09:43 | P.CONS ---
History of Present Illness - Reason for Consult Consult date: 11/19/24 prostate cancer Requesting physician: Karin Archer - Chief Complaint weakness, intractable pain - History of Present Illness Mr Melchor is a pleasant 63 year old male, without major medical issues at baseline, when he presented to the ER in early 11/13 with urinary retention. The patient was found to have obstruction due to prostatic enlargement. He was seen by urology, and was found to have mild PSA elevation at 4.5. He then underwent prostate biopsy on 12/04/22. This showed 5/6 cores involved with adenocarcinoma, Empire's 4+5 = 9 in 4, and 4+4 = 8 and 1. 1/6 cores showed atypical cells with carcinoma not entirely excluded. The patient unfortunately had evidence of metastatic disease at baseline. CT from 01/10/23 showed a 2.6 cm hypodense lesion in the right hepatic lobe. There were mildly prominent periaortic lymph nodes, as well as mildly enlarged right external iliac lymph node. Bone scan showed uptake in the anterior left sixth rib, and right iliac bone. The patient was started on ADT, and ARB ( Erleada). He tolerated treatment well, and reported good compliance. However urinary retention persisted due to which she had a TURP on 06/19/23. Resected prostate again showed prostatic adenocarcinoma, with Alvarez's 4+3 = 7 disease. His PSA showed response, drop into 0.23 x 08/20/23. However follow up scans in 09/14 showed progression. Bone scan on 08/30/23 showed interval progression at the right sacrum, and posterior right iliac bone as well as the right pubic bone, with 2 additional small foci of metastasis in the upper posterior mid sacrum and left side of the sacrum. CT abdomen and pelvis on the same day showed significant increase in size of the left lobe liver mass measuring 7.7 x 5.2 cm. The patient was referred for radiation to the pelvic bones, after which he started chemotherapy with Taxotere on 01/08/24, and completed 8 cycles in May 2024. He was then seen by rad onc for further radiation. Unfortunately, PET/CT on 10/11/2024 showed disease progression within the liver and osseous structures with a large region of intense radiotracer activity involving the right proximal femur diaphysis. Patient states right hip and right lower extremity pain has been increasing and he has not been able to ambulate and take care of himself at home which caused him to present to the ER for further evaluation. Labs reviewed, WBC 8.8, hemoglobin 8.7, platelets 529,000. Creatinine 0.5, GFR 115. Bilirubin normal at 0.5 with transaminitis noted. Ferritin 7550, no vitamin B12 or folate deficiency noted. D-dimer elevated at 4.91. CTA chest was subsequently obtained with no evidence of pulmonary embolus. An interval development of a small left pleural effusion and 10 mm pleural-based nodule. Sclerotic density in the proximal left eighth rib. Patient is hypotensive. Afebrile. UA negative for UTI. Review of Systems 10 point ROS is negative except as stated in the HPI Past Medical History Past Medical History: Atrial Fibrillation, Cancer, Hyperlipidemia, Hypertension, Musculoskeletal Disorder, Prostate Disorder Additional Past Medical History / Comment(s): HISTORY PROSTATE CA October 2022-chemo & radiation, current hormone tx., lesion on liver. History of Any Multi-Drug Resistant Organisms: None Reported Past Surgical History: No Surgical Hx Reported Additional Past Surgical History / Comment(s): TURP Past Anesthesia/Blood Transfusion Reactions: No Reported Reaction Additional Past Anesthesia/Blood Transfusion Reaction / Comm: NEVER HAD ANESTHESIA. Smoking Status: Former smoker - Past Family History Mother Family Medical History: CVA/TIA, Hypertension Father Additional Family Medical History / Comment(s): Brain aneurysm. Medications and Allergies Home Medications Medication Instructions Recorded Confirmed Type Apixaban [Eliquis] 5 mg PO BID #60 tab 11/02/22 11/18/24 Rx Rosuvastatin [Crestor] 5 mg PO DAILY 04/11/23 11/18/24 History lisinopriL 2.5 mg PO QAM 04/11/23 11/18/24 History Metoprolol Succinate (ER) [Toprol 50 mg PO HS 06/12/23 11/18/24 History XL] Metoprolol Succinate [Toprol XL] 100 mg PO QAM 11/18/24 11/18/24 History oxyCODONE-APAP 10-325MG [Percocet 1 tab PO QID 11/18/24 11/18/24 History 10-325 mg] Allergies Allergy/AdvReac Type Severity Reaction Status Date / Time No Known Allergies Allergy Verified 11/18/24 12:30 Physical Exam Vitals: Vital Signs Temp Pulse Pulse Resp BP BP Pulse Ox 11/19/24 12:25 110 H 90/62 11/19/24 09:00 120 H 18 85/65 98 11/19/24 06:00 98.1 F 98 16 85/62 98 11/19/24 05:00 105 H 84/57 11/19/24 04:00 103 H 18 86/62 97 11/19/24 01:51 97.9 F 107 H 18 88/62 96 11/19/24 00:00 103 H 87/62 96 11/18/24 23:30 98 82/58 96 11/18/24 22:00 110 H 92/65 97 11/18/24 21:56 112 H 85/64 96 11/18/24 21:00 95 85/60 11/18/24 20:25 108 H 18 82/57 97 11/18/24 19:52 98.2 F 102 H 18 83/54 97 11/18/24 19:13 80/53 11/18/24 18:53 105 H 18 82/55 99 11/18/24 17:30 99.0 F 107 H 18 87/65 100 11/18/24 16:00 112 H 16 85/59 97 11/18/24 15:00 101 H 18 84/57 11/18/24 14:24 93 16 89/51 96 Intake and Output 11/18/24 11/19/24 11/19/24 22:59 06:59 14:59 Output Total 400 150 Balance -400 -150 Output: Urine 400 150 Other: Voiding Method Urinal # Voids 2 1 Weight 65.771 kg - Constitutional General appearance: no acute distress - EENT Eyes: anicteric sclerae, EOMI ENT: hearing grossly normal - Respiratory Respiratory: bilateral: CTA - Cardiovascular Rhythm: regular - Gastrointestinal General gastrointestinal: hepatomegaly, no tenderness - Integumentary Integumentary: no cyanotic - Musculoskeletal Musculoskeletal: generalized weakness - Psychiatric Psychiatric: A&O x's 3 Results CBC & Chem 7: 11/20/24 03:38 11/20/24 03:38 Labs: Abnormal Lab Results - Last 24 Hours (Table) 11/18/24 11/19/24 11/19/24 Range/Units 22:56 05:35 05:35 RBC 2.82 L 2.97 L (4.40-5.60) 10*6/uL Hgb 8.5 L 8.7 L (13.0-17.0) g/dL Hct 26.3 L 28.3 L (39.6-50.0) % MCHC 30.7 L (32.0-37.0) g/dL RDW 14.8 H (11.5-14.5) % Plt Count 454 H 529 H (140-440) 10*3/uL MPV 8.4 L 9.1 L (9.5-12.2) fL Immature Gran # 0.18 H (0.00-0.04) X 10*3/uL Lymphocytes # 0.54 L (0.90-5.00) X 10*3/uL Anion Gap (4.00-12.00) mmol/L BUN (9.0-27.0) mg/dL Creatinine (0.6-1.5) mg/dL Calcium (8.7-10.3) mg/dL Iron 50 L (65-175) UG/DL Ferritin 7550.0 H (22.0-322.0) ng/mL Unconjugated Bilirubin (0.20-1.00) mg/dL AST (14-35) U/L ALT (10-49) U/L Alkaline Phosphatase (41-126) U/L Total Protein (6.2-8.2) g/dL Albumin (3.8-4.9) g/dL Albumin/Globulin Ratio (1.60-3.17) Ratio Vitamin B12 2542.0 H (200.0-944.0) pg/mL 11/19/24 Range/Units 05:35 RBC (4.40-5.60) 10*6/uL Hgb (13.0-17.0) g/dL Hct (39.6-50.0) % MCHC (32.0-37.0) g/dL RDW (11.5-14.5) % Plt Count (140-440) 10*3/uL MPV (9.5-12.2) fL Immature Gran # (0.00-0.04) X 10*3/uL Lymphocytes # (0.90-5.00) X 10*3/uL Anion Gap 13.10 H (4.00-12.00) mmol/L BUN 7.9 L (9.0-27.0) mg/dL Creatinine 0.5 L (0.6-1.5) mg/dL Calcium 8.1 L (8.7-10.3) mg/dL Iron (65-175) UG/DL Ferritin (22.0-322.0) ng/mL Unconjugated Bilirubin 0.11 L (0.20-1.00) mg/dL AST 242 H (14-35) U/L ALT 71 H (10-49) U/L Alkaline Phosphatase 648 H (41-126) U/L Total Protein 4.9 L (6.2-8.2) g/dL Albumin 2.6 L (3.8-4.9) g/dL Albumin/Globulin Ratio 1.13 L (1.60-3.17) Ratio Vitamin B12 (200.0-944.0) pg/mL CT scan - chest: report reviewed Assessment and Plan (1) Prostate cancer Current Visit: Yes Status: Acute Code(s): C61 - MALIGNANT NEOPLASM OF PROSTATE SNOMED Code(s): 666254969 (2) Intractable pain Current Visit: Yes Status: Acute Code(s): R52 - PAIN, UNSPECIFIED SNOMED Code(s): 53062486 (3) Hypotension Current Visit: Yes Status: Acute Code(s): I95.9 - HYPOTENSION, UNSPECIFIED SNOMED Code(s): 97526479 (4) Weakness Current Visit: Yes Status: Acute Code(s): R53.1 - WEAKNESS SNOMED Code(s): 54713706 Plan: Metastatic prostate cancer: Presented with intractable pain of right hip and right lower extremity and he has not been able to ambulate and take care of himself -Oncology history as dictated in the HPI -Completed 8 cycles of Taxotere in 05/2024, and XRT to pelvis/left hip -Unfortunately, PET/CT on 10/11/2024 showed disease progression within the liver and osseous structures with a large region of intense radiotracer activity involving the right proximal femur diaphysis. -WBC 8.8, hemoglobin 8.7, platelets 529,000. Creatinine 0.5, GFR 115. Bilirubin normal at 0.5 with transaminitis noted. -CTA chest was subsequently obtained with no evidence of pulmonary embolus. An interval development of a small left pleural effusion and 10 mm pleural-based nodule. Sclerotic density in the proximal left eighth rib. -Had detailed discussion with patient and family regarding treatment options vs comfort care measures. Recommended rad onc evaluation for palliative RT to right hip. At this time, pt is agreeable to XRT, but unsure if he would want further systemic treatment -Rad onc consulted -Continue with pain management Doctor attests: I performed a history and physical examination of this patient, developed impression and plan of care. Discussed with dictator. I agree with dictators note, documented as a scribe.
[2024-11-20 14:11] VITALS: BMI 19.6
--- NOTE | 2024-11-20 19:47 | P.PN ---
Subjective This is a pleasant 63 years old male with past medical history of multiple medical problems as below Patient was diagnosed with prostate cancer last year and he was started with chemotherapy and finished his treatment by the end of last year and then because of his good tolerance his oncologist Dr. Webster extended this treatment for another 2 cycles Presents now because of generalized weakness and hypotension Patient has been having pain for about 1 month he is pain mainly in the right groin extending to the right leg and right knee. He has difficulty moving of his right lower extremity because of this. Comparably his left side with no such problem Also complains from feet numbness However patient denied chest pain or dyspnea. No abdominal pain or vomiting. He feels constipated from pain medication. No specific urology symptoms or uri nary signs symptoms 11/20 Patient awake alert Still with right thigh pain and other sites. He plan to get radiotherapy. Probably on Saturday He has some constipation but he does not want more bowel regimen for now Objective - Vital Signs Vital signs: Vital Signs Temp 98.2 F 11/20/24 17:54 Pulse 115 H 11/20/24 17:54 Resp 18 11/20/24 17:54 BP 106/58 11/20/24 17:54 Pulse Ox 96 11/20/24 17:54 FiO2 Intake & Output 11/20/24 11/20/24 11/21/24 06:59 18:59 06:59 Output Total 550 700 Balance -550 -700 Weight 65.771 kg Output: Urine 550 700 Other: Voiding Method Urinal Urinal - Exam -GENERAL: The patient is alert and oriented x3, not in any acute distress. Cachectic HEENT: Pupils are round and equally reacting to light. EOMI. No scleral icterus. No conjunctival pallor. Normocephalic, atraumatic. No pharyngeal erythema. No thyromegaly. CARDIOVASCULAR: S1 and S2 present. No murmurs, rubs, or gallops. PULMONARY: Chest is clear to auscultation, no wheezing , no crackles. ABDOMEN: Soft, nontender, nondistended, normoactive bowel sounds. No palpable organomegaly. MUSCULOSKELETAL: No joint swelling or deformity. -EXTREMITIES: No cyanosis, clubbing, or pedal edema. Right thigh mild tenderness NEUROLOGICAL: Gross neurological examination did not reveal any focal deficits. SKIN: No rashes. no petechiae. - Labs CBC & Chem 7: 11/20/24 03:38 11/20/24 03:38 Labs: Abnormal Lab Results - Last 24 Hours (Table) 11/20/24 11/20/24 Range/Units 03:38 03:38 RBC 2.94 L (4.40-5.60) X 10*6/uL Hgb 8.7 L (13.0-17.0) g/dL Hct 28.4 L (39.6-50.0) % MCHC 30.6 L (32.0-37.0) g/dL RDW 15.0 H (11.5-14.5) % Plt Count 513 H (140-440) X 10*3/uL MPV 9.1 L (9.5-12.2) FL Immature Gran # 0.17 H (0.00-0.04) X 10*3/uL Lymphocytes # 0.58 L (0.90-5.00) X 10*3/uL Carbon Dioxide 21.5 L (21.6-31.8) mmol/L Anion Gap 12.50 H (4.00-12.00) mmol/L BUN 5.8 L (9.0-27.0) mg/dL Creatinine 0.4 L (0.6-1.5) mg/dL Calcium 8.3 L (8.7-10.3) mg/dL Assessment and Plan Assessment: Right hip pain and right thigh pain most likely related to metastatic disease to the bone Prostate cancer s/p chemotherapy and radiotherapy Generalized weakness Hypotension Atrial fibrillation Hypertension Hyperlipidemia Transaminitis Plan: Continue with pain management Continue with encouraging hydration Pending radiotherapy to the right thigh for painful metastatic disease most likely Hematology/oncology team consult Radiation oncology consult Resume home medication Further recommendation based on the clinical course GI prophylaxis: Protonix DVT prophylaxis: Subcu heparin Prognosis is guarded
--- NOTE | 2024-11-20 20:22 | P.PN ---
Subjective Progress Note Date: 11/20/24 Pt reporting persisting right hip pain, pain meds providing mild improvement. Rad onc has evaluated pt, plan for simulation/XRT today or saturday pending scheduling Objective - Vital Signs Vital signs: Vital Signs Temp 98.2 F 11/20/24 17:54 Pulse 115 H 11/20/24 17:54 Resp 18 11/20/24 17:54 BP 106/58 11/20/24 17:54 Pulse Ox 96 11/20/24 17:54 FiO2 Intake & Output 11/20/24 11/20/24 11/21/24 06:59 18:59 06:59 Intake Total 118 Output Total 550 700 Balance -550 -700 118 Weight 65.771 kg Intake: Oral 118 Output: Urine 550 700 Other: Voiding Method Urinal Urinal - Constitutional General appearance: Present: average body habitus, no acute distress - EENT Eyes: Present: anicteric sclerae, EOMI ENT: Present: hearing grossly normal - Respiratory Details: breathing is even and unlabored - Cardiovascular Details: skin warm and dry - Integumentary Integumentary: Absent: cyanotic, jaundiced - Psychiatric Psychiatric: Present: A&O x's 3 - Labs CBC & Chem 7: 11/20/24 03:38 11/20/24 03:38 Labs: Abnormal Lab Results - Last 24 Hours (Table) 11/20/24 11/20/24 Range/Units 03:38 03:38 RBC 2.94 L (4.40-5.60) X 10*6/uL Hgb 8.7 L (13.0-17.0) g/dL Hct 28.4 L (39.6-50.0) % MCHC 30.6 L (32.0-37.0) g/dL RDW 15.0 H (11.5-14.5) % Plt Count 513 H (140-440) X 10*3/uL MPV 9.1 L (9.5-12.2) FL Immature Gran # 0.17 H (0.00-0.04) X 10*3/uL Lymphocytes # 0.58 L (0.90-5.00) X 10*3/uL Carbon Dioxide 21.5 L (21.6-31.8) mmol/L Anion Gap 12.50 H (4.00-12.00) mmol/L BUN 5.8 L (9.0-27.0) mg/dL Creatinine 0.4 L (0.6-1.5) mg/dL Calcium 8.3 L (8.7-10.3) mg/dL Assessment and Plan (1) Prostate cancer Current Visit: Yes Status: Acute Code(s): C61 - MALIGNANT NEOPLASM OF PROSTATE SNOMED Code(s): 042575615 (2) Intractable pain Current Visit: Yes Status: Acute Code(s): R52 - PAIN, UNSPECIFIED SNOMED Code(s): 53040966 (3) Hypotension Current Visit: Yes Status: Acute Code(s): I95.9 - HYPOTENSION, UNSPECIFIED SNOMED Code(s): 49246276 (4) Weakness Current Visit: Yes Status: Acute Code(s): R53.1 - WEAKNESS SNOMED Code(s): 59169317 Plan: Metastatic prostate cancer: Presented with intractable pain of right hip and right lower extremity and he has not been able to ambulate and take care of himself -Oncology history as dictated in the HPI -Completed 8 cycles of Taxotere in 05/2024, and XRT to pelvis/left hip -Unfortunately, PET/CT on 10/11/2024 showed disease progression within the liver and osseous structures with a large region of intense radiotracer activity involving the right proximal femur diaphysis. -WBC 8.8, hemoglobin 8.7, platelets 529,000. Creatinine 0.5, GFR 115. Bilirubin normal at 0.5 with transaminitis noted. -CTA chest was subsequently obtained with no evidence of pulmonary embolus. An interval development of a small left pleural effusion and 10 mm pleural-based nodule. Sclerotic density in the proximal left eighth rib. -Had detailed discussion with patient and family regarding treatment options vs comfort care measures. Recommended rad onc evaluation for palliative RT to right hip. At this time, pt is agreeable to XRT, but unsure if he would want further systemic treatment -Rad onc consulted. Plan for simulation/XRT to right femur today or saturday pending scheduling -Pain meds adjusted Doctor attests: I performed a history and physical examination of this patient, developed impression and plan of care. Discussed with dictator. I agree with dictators note, documented as a scribe.
[2024-11-20] MEDS: DOCUSATE 100 MG CAP PO SCH (20:39)
[2024-11-20] MEDS: HEPARIN SODIUM,PORCINE 5,000 UNIT/ML 1 ML VIAL SQ SCH (20:39)
[2024-11-20] MEDS: FAMOTIDINE 20 MG/2 ML VIAL IV SCH (20:39)
[2024-11-20] MEDS: HYDROcodone/APAP 10-325MG 1 EACH TAB PO PRN (20:48)
[2024-11-21 09:44] LABS: Basophils # (A) 0.06 X 10*3/uL (0.00-0.10); Basophils % (A) 0.6 %; Eosinophils # (A) 0.11 X 10*3/uL (0.04-0.35); HGB 8.6 g/dL (13.0-17.0); Lymphocytes # (A) 0.53 X 10*3/uL (0.90-5.00); MCH 29.6 pg (27.0-32.0); MCHC 30.7 g/dL (32.0-37.0); MCV 96.2 FL (80.0-97.0); Mean Platelet Volume 8.8 FL (9.5-12.2); Monocytes # (A) 1.03 X 10*3/uL (0.20-1.00); Monocytes % (A) 9.7 %; NRBC Per 100 WBC 0 X 10*3/uL (0.00-0.01); Neutrophils % (A) 82.3 %; Platelet Count 452 X 10*3/uL (140-440); RBC 2.91 X 10*6/uL (4.40-5.60); RDW 15.1 % (11.5-14.5); WBC 10.58 X 10*3/uL (4.50-10.00)
[2024-11-21 11:06] LABS: Blood Urea Nitrogen 5.6 mg/dL (9.0-27.0); Calcium 8.3 mg/dL (8.7-10.3); Carbon Dioxide 20.8 mmol/L (21.6-31.8); Chloride 106 mmol/L (96-109); Glucose 90 mg/dL (70-110); Potassium 4.1 mmol/L (3.5-5.5); Sodium 140 mmol/L (135-145)
--- NOTE | 2024-11-21 20:47 | P.PN ---
Subjective This is a pleasant 63 years old male with past medical history of multiple medical problems as below Patient was diagnosed with prostate cancer last year and he was started with chemotherapy and finished his treatment by the end of last year and then because of his good tolerance his oncologist Dr. Webster extended this treatment for another 2 cycles Presents now because of generalized weakness and hypotension Patient has been having pain for about 1 month he is pain mainly in the right groin extending to the right leg and right knee. He has difficulty moving of his right lower extremity because of this. Comparably his left side with no such problem Also complains from feet numbness However patient denied chest pain or dyspnea. No abdominal pain or vomiting. He feels constipated from pain medication. No specific urology symptoms or uri nary signs symptoms 11/20 Patient awake alert Still with right thigh pain and other sites. He plan to get radiotherapy. Probably on Saturday He has some constipation but he does not want more bowel regimen for now 11/21 Patient clinically the same Still complaining from right hip and femur pain about 9/10 He is able to tolerate diet, average appetite Unable to ambulate because of his pain and condition Eliquis on hold. Patient refused subcu heparin Plan for radiotherapy possibly on Saturday Objective - Vital Signs Vital signs: Vital Signs Temp 98.2 F 11/21/24 07:40 Pulse 115 H 11/21/24 07:40 Resp 17 11/21/24 07:40 BP 94/62 11/21/24 07:40 Pulse Ox 96 11/21/24 07:40 FiO2 Intake & Output 11/20/24 11/21/24 11/21/24 18:59 06:59 18:59 Intake Total 118 240 Output Total 700 700 125 Balance -700 -582 115 Weight 65.771 kg Intake: Oral 118 240 Output: Urine 700 700 125 Other: Voiding Method Urinal Urinal Urinal - Exam -GENERAL: The patient is alert and oriented x3, not in any acute distress. Cachectic HEENT: Pupils are round and equally reacting to light. EOMI. No scleral icterus. No conjunctival pallor. Normocephalic, atraumatic. No pharyngeal erythema. No thyromegaly. CARDIOVASCULAR: S1 and S2 present. No murmurs, rubs, or gallops. PULMONARY: Chest is clear to auscultation, no wheezing , no crackles. ABDOMEN: Soft, nontender, nondistended, normoactive bowel sounds. No palpable organomegaly. MUSCULOSKELETAL: No joint swelling or deformity. -EXTREMITIES: No cyanosis, clubbing, or pedal edema. Right thigh mild tenderness NEUROLOGICAL: Gross neurological examination did not reveal any focal deficits. SKIN: No rashes. no petechiae. - Labs CBC & Chem 7: 11/21/24 06:20 11/21/24 06:20 Labs: Abnormal Lab Results - Last 24 Hours (Table) 11/21/24 11/21/24 Range/Units 06:20 06:20 WBC 10.58 H (4.50-10.00) X 10*3/uL RBC 2.91 L (4.40-5.60) X 10*6/uL Hgb 8.6 L (13.0-17.0) g/dL Hct 28.0 L (39.6-50.0) % MCHC 30.7 L (32.0-37.0) g/dL RDW 15.1 H (11.5-14.5) % Plt Count 452 H (140-440) X 10*3/uL MPV 8.8 L (9.5-12.2) FL Immature Gran # 0.15 H (0.00-0.04) X 10*3/uL Neutrophils # 8.70 H (1.80-7.70) X 10*3/uL Lymphocytes # 0.53 L (0.90-5.00) X 10*3/uL Monocytes # 1.03 H (0.20-1.00) X 10*3/uL Carbon Dioxide 20.8 L (21.6-31.8) mmol/L Anion Gap 13.20 H (4.00-12.00) mmol/L BUN 5.6 L (9.0-27.0) mg/dL Creatinine 0.4 L (0.6-1.5) mg/dL Calcium 8.3 L (8.7-10.3) mg/dL Assessment and Plan Assessment: Right hip pain and right thigh pain most likely related to metastatic disease to the bone Prostate cancer s/p chemotherapy and radiotherapy Generalized weakness Hypotension Atrial fibrillation Hypertension Hyperlipidemia Transaminitis Plan: Continue with pain management Continue with encouraging hydration Pending radiotherapy to the right thigh for painful metastatic disease most likely Hematology/oncology team consult Radiation oncology consult Resume home medication Further recommendation based on the clinical course GI prophylaxis: Protonix DVT prophylaxis: Subcu heparin Prognosis is guarded
[2024-11-22] MEDS: SODIUM CHLORIDE 0.9% 500 ML 500 ML IV ONE (09:00)
[2024-11-22] MEDS: DEXTROSE 5%-0.9% NACL 1,000 ML IV SCH (11:13)
[2024-11-22] MEDS ORDERED: ZINC OXIDE PASTE (Z-GUARD) 1 APPLIC TOPICAL PRN (11:52)
--- NOTE | 2024-11-23 12:02 | P.PN ---
Subjective Date of service for this note is 11.22.24 This is a pleasant 63 years old male with past medical history of multiple medical problems as below Patient was diagnosed with prostate cancer last year and he was started with morgan motherapy and finished his treatment by the end of last year and then because of his good tolerance his oncologist Dr. Webster extended this treatment for another 2 cycles Presents now because of generalized weakness and hypotension Patient has been having pain for about 1 month he is pain mainly in the right groin extending to the right leg and right knee. He has difficulty moving of his right lower extremity because of this. Comparably his left side with no such problem Also complains from feet numbness However patient denied chest pain or dyspnea. No abdominal pain or vomiting. He feels constipated from pain medication. No specific urology symptoms or urinary signs symptoms 11/20 Patient awake alert Still with right thigh pain and other sites. He plan to get radiotherapy. Probably on Saturday He has some constipation but he does not want more bowel regimen for now 11/21 Patient clinically the same Still complaining from right hip and femur pain about 9/10 He is able to tolerate diet, average appetite Unable to ambulate because of his pain and condition Eliquis on hold. Patient refused subcu heparin Plan for radiotherapy possibly on Wednesday 11/22 Patient was hypotensive received a bolus of Normal Saline and placed on normal saline fusion at 75 mL/h He remains asymptomatic He still complaining from right thigh pain pending radiotherapy Objective - Vital Signs Vital signs: Vital Signs Temp 98.1 F 11/23/24 06:58 Pulse 112 H 11/23/24 07:38 Resp 16 11/23/24 06:58 BP 97/62 11/23/24 06:58 Pulse Ox 97 11/23/24 06:58 FiO2 Intake & Output 11/22/24 11/23/24 11/23/24 18:59 06:59 18:59 Intake Total 240 Output Total 825 400 Balance -585 -400 Intake: Oral 240 Output: Urine 825 400 Other: Voiding Method Urinal # Voids 500 - Exam -GENERAL: The patient is alert and oriented x3, not in any acute distress. Cachectic HEENT: Pupils are round and equally reacting to light. EOMI. No scleral icterus. No conjunctival pallor. Normocephalic, atraumatic. No pharyngeal erythema. No thyromegaly. CARDIOVASCULAR: S1 and S2 present. No murmurs, rubs, or gallops. PULMONARY: Chest is clear to auscultation, no wheezing , no crackles. ABDOMEN: Soft, nontender, nondistended, normoactive bowel sounds. No palpable organomegaly. MUSCULOSKELETAL: No joint swelling or deformity. -EXTREMITIES: No cyanosis, clubbing, or pedal edema. Right thigh mild tenderness NEUROLOGICAL: Gross neurological examination did not reveal any focal deficits. SKIN: No rashes. no petechiae. - Labs CBC & Chem 7: 11/21/24 06:20 11/21/24 06:20 Assessment and Plan Assessment: Right hip pain and right thigh pain most likely related to metastatic disease to the bone Prostate cancer s/p chemotherapy and radiotherapy Generalized weakness Hypotension Atrial fibrillation Hypertension Hyperlipidemia Transaminitis Plan: Continue with pain management Continue with encouraging hydration Pending radiotherapy to the right thigh for painful metastatic disease most likely Hematology/oncology team consult Radiation oncology consult Resume home medication Further recommendation based on the clinical course GI prophylaxis: Protonix DVT prophylaxis: Subcu heparin Prognosis is guarded
--- NOTE | 2024-11-23 14:23 | P.PN ---
Subjective Progress Note Date: 11/23/24 Pt reporting persisting right hip pain, but is showing some improvement on pain meds. Rad onc has evaluated pt, plan for simulation/XRT today Objective - Vital Signs Vital signs: Vital Signs Temp 98.1 F 11/23/24 06:58 Pulse 112 H 11/23/24 07:38 Resp 16 11/23/24 06:58 BP 97/62 11/23/24 06:58 Pulse Ox 97 11/23/24 06:58 FiO2 Intake & Output 11/22/24 11/23/24 11/23/24 18:59 06:59 18:59 Intake Total 240 Output Total 825 400 Balance -585 -400 Intake: Oral 240 Output: Urine 825 400 Other: Voiding Method Urinal # Voids 500 - Constitutional General appearance: Present: no acute distress - EENT Eyes: Present: anicteric sclerae, EOMI ENT: Present: hearing grossly normal - Respiratory Details: breathing is even and unlabored - Cardiovascular Details: skin warm and dry - Integumentary Integumentary: Present: pale. Absent: cyanotic - Musculoskeletal Musculoskeletal: Present: generalized weakness - Psychiatric Psychiatric: Present: A&O x's 3 - Labs CBC & Chem 7: 11/21/24 06:20 11/21/24 06:20 Assessment and Plan (1) Prostate cancer Current Visit: Yes Status: Acute Code(s): C61 - MALIGNANT NEOPLASM OF PROSTATE SNOMED Code(s): 007598716 (2) Intractable pain Current Visit: Yes Status: Acute Code(s): R52 - PAIN, UNSPECIFIED SNOMED Code(s): 32895708 (3) Hypotension Current Visit: Yes Status: Acute Code(s): I95.9 - HYPOTENSION, UNSPECIFIED SNOMED Code(s): 40511646 (4) Weakness Current Visit: Yes Status: Acute Code(s): R53.1 - WEAKNESS SNOMED Code(s): 87013151 Plan: Metastatic prostate cancer: Presented with intractable pain of right hip and right lower extremity and he has not been able to ambulate and take care of himself -Oncology history as dictated in the HPI -Completed 8 cycles of Taxotere in 05/2024, and XRT to pelvis/left hip -Unfortunately, PET/CT on 10/11/2024 showed disease progression within the liver and osseous structures with a large region of intense radiotracer activity involving the right proximal femur diaphysis. -WBC 8.8, hemoglobin 8.7, platelets 529,000. Creatinine 0.5, GFR 115. Bilirubin normal at 0.5 with transaminitis noted. -CTA chest was subsequently obtained with no evidence of pulmonary embolus. An interval development of a small left pleural effusion and 10 mm pleural-based nodule. Sclerotic density in the proximal left eighth rib. -Had detailed discussion with patient and family regarding treatment options vs comfort care measures. Recommended rad onc evaluation for palliative RT to right hip. At this time, pt is agreeable to XRT, and states that he does not think he wants to pursue further systemic treatment. He is focused on pain control. Hospice team has met with pt and family -Rad onc consulted. Plan for simulation/XRT to right femur today. -Pain meds adjusted. Reporting mild to moderate pain control on current regimen, but exacerbated with movement of RLE. Will increase oxyIR to 20mg q4hrs prn. With norco for breakthrough pain. IVP pain meds have not been used due to hypotension. Palliative RT will also help improve patients pain in right hip area. Will continue to follow
--- NOTE | 2024-11-23 21:53 | P.PN ---
Subjective Progress Note Date: 11/23/24 This is a pleasant 63 years old male with past medical history of multiple medical problems as below Patient was diagnosed with prostate cancer last year and he was started with chemotherapy and finished his treatment by the end of last year and then because of his good tolerance his oncologist Dr. Webster extended this treatment for another 2 cycles Presents now because of generalized weakness and hypotension Patient has been having pain for about 1 month he is pain mainly in the right groin extending to the right leg and right knee. He has difficulty moving of his right lower extremity because of this. Comparably his left side with no such problem Also complains from feet numbness However patient denied chest pain or dyspnea. No abdominal pain or vomiting. He feels constipated from pain medication. No specific urology symptoms or urinary signs symptoms 11/20 Patient awake alert Still with right thigh pain and other sites. He plan to get radiotherapy. Probably on Saturday He has some constipation but he does not want more bowel regimen for now 11/21 Patient clinically the same Still complaining from right hip and femur pain about 9/10 He is able to tolerate diet, average appetite Unable to ambulate because of his pain and condition Eliquis on hold. Patient refused subcu heparin Plan for radiotherapy possibly on Wednesday 11/22 Patient was hypotensive received a bolus of Normal Saline and placed on normal saline fusion at 75 mL/h He remains asymptomatic He still complaining from right thigh pain pending radiotherapy Patient evaluated today on the medical floor. He went for radiation mapping today with plans to start radiation therapy to bony met of the femur today with plans for 5 days total. Patient continues to report pain level 7/10. He is still undecided about DC planning but leaning towards home with hospice with eventual transition to hospice house in [place]. This plan will depend on his improvement with radiation therapy over the next 5 days. He has not had a BM in a few days, has normoactive bowel sounds and abdomen is soft and nontender. Labs today reveal white blood cell count 10.58, hgb 8.6, sodium 140, potassium 4.1, BUN 5.6, creatinine 0.4. calcium 8.3. He is on D5 NS at 75 mls/hr. Review of Systems Constitutional: Denied any fatigue denied any fever. Cardio vascular: denied any chest pain, palpitations Gastrointestinal: denied any nausea, vomiting, diarrhea Pulmonary: Denied any shortness of breath cough Neurologic denied any new focal deficits All inpatient medications were reviewed and appropriate changes in these medications as dictated in the interval history and assessment and plan. PHYSICAL EXAMINATION: GENERAL: The patient is alert and oriented x3, not in any acute distress. Well developed, well nourished. HEENT: Pupils are round and equally reacting to light. EOMI. No scleral icterus. No conjunctival pallor. Normocephalic, atraumatic. No pharyngeal erythema. No thyromegaly. CARDIOVASCULAR: S1 and S2 present. No murmurs, rubs, or gallops. PULMONARY: Chest is clear to auscultation, no wheezing or crackles. ABDOMEN: Soft, nontender, nondistended, normoactive bowel sounds. No palpable organomegaly. MUSCULOSKELETAL: No joint swelling or deformity. EXTREMITIES: No cyanosis, clubbing, or pedal edema. Reports pelvic and right thigh pain. NEUROLOGICAL: Gross neurological examination did not reveal any focal deficits. SKIN: No rashes. Assessment Right hip pain and right thigh pain most likely related to metastatic disease to the bone Prostate cancer s/p chemotherapy and radiotherapy Generalized weakness Hypotension Atrial fibrillation Hypertension Hyperlipidemia Transaminitis GI prophylaxis: Protonix DVT prophylaxis: Subcu heparin Full Code Plan Continue with pain management Continue with encouraging hydration Pending radiotherapy to the right thigh for painful metastatic disease Hematology/oncology team consult Radiation oncology consult Resume home medication Further recommendation based on the clinical course DC planning with hospice pending clinical improvement with radiation therapy. The impression and plan of care has been dictated by Gia Novak Nurse Practitioner as directed. Dr. Perla MD I have performed a history and physical examination and medical decision making of this patient, discussed the same with the dictator, and agree with the dictators assessment and plan as written, documented as a scribe. Based on total visit time, I have performed more than 50% of this visit. Objective - Vital Signs Vital signs: Vital Signs Temp 98.2 F 11/23/24 19:10 Pulse 99 11/23/24 19:10 Resp 16 11/23/24 19:10 BP 99/67 11/23/24 19:10 Pulse Ox 97 11/23/24 19:10 FiO2 Intake & Output 11/23/24 11/23/24 11/24/24 06:59 18:59 06:59 Output Total 400 625 Balance -400 -625 Output: Urine 400 625 Other: Voiding Method Urinal Urinal # Voids 500 # Bowel Movements 1 - Labs CBC & Chem 7: 11/21/24 06:20 11/21/24 06:20 Assessment and Plan Time with Patient: Less than 30
[2024-11-24 08:01] LABS: Basophils # (A) 0.04 X 10*3/uL (0.00-0.10); Basophils % (A) 0.5 %; Eosinophils # (A) 0.15 X 10*3/uL (0.04-0.35); Eosinophils % (A) 1.7 %; HCT 27.2 % (39.6-50.0); HGB 8.4 g/dL (13.0-17.0); Lymphocytes # (A) 0.44 X 10*3/uL (0.90-5.00); MCHC 30.9 g/dL (32.0-37.0); MCV 97.1 FL (80.0-97.0); Monocytes % (A) 12.6 %; NRBC Per 100 WBC 0.02 X 10*3/uL (0.00-0.01); Neutrophils # (A) 6.83 X 10*3/uL (1.80-7.70); Neutrophils % (A) 78.4 %; Platelet Count 393 X 10*3/uL (140-440); WBC 8.72 X 10*3/uL (4.50-10.00)
[2024-11-24 08:20] LABS: BUN/Creat Ratio 9.75 Ratio (12.00-20.00); Blood Urea Nitrogen 3.9 mg/dL (9.0-27.0); Carbon Dioxide 23.2 mmol/L (21.6-31.8); Chloride 106 mmol/L (96-109); Glucose 94 mg/dL (70-110); Magnesium 1.7 mg/dL (1.5-2.4); Potassium 3.6 mmol/L (3.5-5.5); Sodium 140 mmol/L (135-145)
[2024-11-24 08:21] LABS: Calcium 8.1 mg/dL (8.7-10.3)
[2024-11-24] MEDS ORDERED: Magnesium Replacement Protocol 1 EACH MISC MISCELLANE PRN (08:49)
[2024-11-24] MEDS: MAGNESIUM SULFATE-D5W PMX 1 GM in DEXTROSE/WATER 1 100ML.BAG IVPB ONE (10:03)
--- NOTE | 2024-11-24 11:29 | P.PN ---
Subjective Progress Note Date: 11/24/24 This is a pleasant 63 years old male with past medical history of multiple medical problems as below Patient was diagnosed with prostate cancer last year and he was started with chemotherapy and finished his treatment by the end of last year and then because of his good tolerance his oncologist Dr. Webster extended this treatment for another 2 cycles Presents now because of generalized weakness and hypotension Patient has been having pain for about 1 month he is pain mainly in the right groin extending to the right leg and right knee. He has difficulty moving of his right lower extremity because of this. Comparably his left side with no such problem Also complains from feet numbness However patient denied chest pain or dyspnea. No abdominal pain or vomiting. He feels constipated from pain medication. No specific urology symptoms or urinary signs symptoms 11/20 Patient awake alert Still with right thigh pain and other sites. He plan to get radiotherapy. Probably on Saturday He has some constipation but he does not want more bowel regimen for now 11/21 Patient clinically the same Still complaining from right hip and femur pain about 9/10 He is able to tolerate diet, average appetite Unable to ambulate because of his pain and condition Eliquis on hold. Patient refused subcu heparin Plan for radiotherapy possibly on Wednesday 11/22 Patient was hypotensive received a bolus of Normal Saline and placed on normal saline fusion at 75 mL/h He remains asymptomatic He still complaining from right thigh pain pending radiotherapy Patient evaluated today on the medical floor. He went for radiation mapping today with plans to start radiation therapy to bony met of the femur today with plans for 5 days total. Patient continues to report pain level 7/10. He is still undecided about DC planning but leaning towards home with hospice with eventual transition to hospice house in [place]. This plan will depend on his improvement with radiation therapy over the next 5 days. He has not had a BM in a few days, has normoactive bowel sounds and abdomen is soft and nontender. Labs today reveal white blood cell count 10.58, hgb 8.6, sodium 140, potassium 4.1, BUN 5.6, creatinine 0.4. calcium 8.3. He is on D5 NS at 75 mls/hr. 11/24/2024 Patient evaluated in follow-up in the medical floor. 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 Labs today reveal a hemoglobin level of 8.4, sodium of 140, BUN of 3.9 creatinine 0.4 magnesium 1.7. Blood pressure marginal 92/65. He states he has not had a BM in quite a few days. Review of Systems Constitutional: Denied any fatigue denied any fever. Cardio vascular: denied any chest pain, palpitations Gastrointestinal: denied any nausea, vomiting, diarrhea Pulmonary: Denied any shortness of breath cough Neurologic denied any new focal deficits All inpatient medications were reviewed and appropriate changes in these medications as dictated in the interval history and assessment and plan. PHYSICAL EXAMINATION: GENERAL: The patient is alert and oriented x3, not in any acute distress. Well developed, well nourished. HEENT: Pupils are round and equally reacting to light. EOMI. No scleral icterus. No conjunctival pallor. Normocephalic, atraumatic. No pharyngeal erythema. No thyromegaly. CARDIOVASCULAR: S1 and S2 present. No murmurs, rubs, or gallops. PULMONARY: Chest is clear to auscultation, no wheezing or crackles. ABDOMEN: Soft, nontender, nondistended, normoactive bowel sounds. No palpable organomegaly. MUSCULOSKELETAL: No joint swelling or deformity. EXTREMITIES: No cyanosis, clubbing, or pedal edema. Reports pelvic and right thigh pain. NEUROLOGICAL: Gross neurological examination did not reveal any focal deficits. SKIN: No rashes. Assessment Right hip pain and right thigh pain most likely related to metastatic disease to the bone Constipation Prostate cancer s/p chemotherapy and radiotherapy Generalized weakness Hypotension Atrial fibrillation Hypertension Hyperlipidemia Transaminitis GI prophylaxis: Protonix DVT prophylaxis: Subcu heparin Full Code Plan Add midodrine Add miralax and lactulose Continue with pain management Continue with encouraging hydration Continue radiotherapy to the right thigh for painful metastatic disease Hematology/oncology team consult Radiation oncology consult Resume home medication Further recommendation based on the clinical course DC planning with hospice pending clinical improvement with radiation therapy. The impression and plan of care has been dictated by Gia Novak Nurse Practitioner as directed. Dr. Perla MD I have performed a history and physical examination and medical decision making of this patient, discussed the same with the dictator, and agree with the dictators assessment and plan as written, documented as a scribe. Based on total visit time, I have performed more than 50% of this visit. Objective - Vital Signs Vital signs: Vital Signs Temp 98.3 F 11/24/24 07:10 Pulse 121 H 11/24/24 07:27 Resp 16 11/24/24 07:10 BP 92/65 11/24/24 07:10 Pulse Ox 96 11/24/24 07:10 FiO2 Intake & Output 11/23/24 11/24/24 11/24/24 18:59 06:59 18:59 Output Total 625 200 Balance -625 -200 Output: Urine 625 200 Other: Voiding Method Urinal # Bowel Movements 1 - Labs CBC & Chem 7: 11/24/24 04:31 11/24/24 04:31 Labs: Abnormal Lab Results - Last 24 Hours (Table) 11/24/24 11/24/24 Range/Units 04:31 04:31 RBC 2.80 L (4.40-5.60) X 10*6/uL Hgb 8.4 L (13.0-17.0) g/dL Hct 27.2 L (39.6-50.0) % MCV 97.1 H (80.0-97.0) FL MCHC 30.9 L (32.0-37.0) g/dL RDW 16.0 H (11.5-14.5) % MPV 9.0 L (9.5-12.2) FL Immature Gran # 0.16 H (0.00-0.04) X 10*3/uL Lymphocytes # 0.44 L (0.90-5.00) X 10*3/uL Monocytes # 1.10 H (0.20-1.00) X 10*3/uL NRBC/100 WBC Diff 0.02 H (0.00-0.01) X 10*3/uL BUN 3.9 L (9.0-27.0) mg/dL Creatinine 0.4 L (0.6-1.5) mg/dL BUN/Creatinine Ratio 9.75 L (12.00-20.00) Ratio Calcium 8.1 L (8.7-10.3) mg/dL Assessment and Plan Time with Patient: Less than 30
[2024-11-24] MEDS: MIDODRINE 5 MG TAB PO SCH (12:27)
[2024-11-24] MEDS: MORPHINE SULFATE 4 MG/ML SYRINGE IV PRN (15:22)
[2024-11-24] MEDS: polyethylene glycoL 3350 17 GM POWD.PACK PO SCH (17:35)
--- NOTE | 2024-11-25 13:52 | P.PN ---
Subjective Progress Note Date: 11/25/24 This is a pleasant 63 years old male with past medical history of multiple medical problems as below Patient was diagnosed with prostate cancer last year and he was started with chemotherapy and finished his treatment by the end of last year and then because of his good tolerance his oncologist Dr. Webster extended this treatment for another 2 cycles Presents now because of generalized weakness and hypotension Patient has been having pain for about 1 month he is pain mainly in the right groin extending to the right leg and right knee. He has difficulty moving of his right lower extremity because of this. Comparably his left side with no such problem Also complains from feet numbness However patient denied chest pain or dyspnea. No abdominal pain or vomiting. He feels constipated from pain medication. No specific urology symptoms or urinary signs symptoms 11/20 Patient awake alert Still with right thigh pain and other sites. He plan to get radiotherapy. Probably on Saturday He has some constipation but he does not want more bowel regimen for now 11/21 Patient clinically the same Still complaining from right hip and femur pain about 9/10 He is able to tolerate diet, average appetite Unable to ambulate because of his pain and condition Eliquis on hold. Patient refused subcu heparin Plan for radiotherapy possibly on Wednesday 11/22 Patient was hypotensive received a bolus of Normal Saline and placed on normal saline fusion at 75 mL/h He remains asymptomatic He still complaining from right thigh pain pending radiotherapy Patient evaluated today on the medical floor. He went for radiation mapping today with plans to start radiation therapy to bony met of the femur today with plans for 5 days total. Patient continues to report pain level 7/10. He is still undecided about DC planning but leaning towards home with hospice with eventual transition to hospice house in [place]. This plan will depend on his improvement with radiation therapy over the next 5 days. He has not had a BM in a few days, has normoactive bowel sounds and abdomen is soft and nontender. Labs today reveal white blood cell count 10.58, hgb 8.6, sodium 140, potassium 4.1, BUN 5.6, creatinine 0.4. calcium 8.3. He is on D5 NS at 75 mls/hr. 11/24/2024 Patient evaluated in follow-up in the medical floor. 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 Labs today reveal a hemoglobin level of 8.4, sodium of 140, BUN of 3.9 creatinine 0.4 magnesium 1.7. Blood pressure marginal 92/65. He states he has not had a BM in quite a few days. 11/25/2024 Patient is evaluated in follow-up in the medical floor. He is continuing to report significant discomfort to his right leg because of the bony bites. He went for mapping for radiation therapy however had to be redone and today will be his actual first session of radiation therapy. He is concerned with his pain management during his radiation sessions. He was given MiraLAX and has had a large bowel movement yesterday. Magnesium 1.8 today Review of Systems Constitutional: Denied any fatigue denied any fever. Cardio vascular: denied any chest pain, palpitations Gastrointestinal: denied any nausea, vomiting, diarrhea Pulmonary: Denied any shortness of breath cough Neurologic denied any new focal deficits All inpatient medications were reviewed and appropriate changes in these medications as dictated in the interval history and assessment and plan. PHYSICAL EXAMINATION: GENERAL: The patient is alert and oriented x3, not in any acute distress. Well developed, well nourished. HEENT: Pupils are round and equally reacting to light. EOMI. No scleral icterus. No conjunctival pallor. Normocephalic, atraumatic. No pharyngeal erythema. No thyromegaly. CARDIOVASCULAR: S1 and S2 present. No murmurs, rubs, or gallops. PULMONARY: Chest is clear to auscultation, no wheezing or crackles. ABDOMEN: Soft, nontender, nondistended, normoactive bowel sounds. No palpable organomegaly. MUSCULOSKELETAL: No joint swelling or deformity. EXTREMITIES: No cyanosis, clubbing, or pedal edema. Reports pelvic and right thigh pain. NEUROLOGICAL: Gross neurological examination did not reveal any focal deficits. SKIN: No rashes. Assessment Right hip pain and right thigh pain most likely related to metastatic disease to the bone Constipation Prostate cancer s/p chemotherapy and radiotherapy Generalized weakness Hypotension Atrial fibrillation Hypertension Hyperlipidemia Transaminitis GI prophylaxis: Protonix DVT prophylaxis: Subcu heparin Full Code Plan Add midodrine Add miralax and lactulose Continue with pain management Continue with encouraging hydration Continue radiotherapy to the right thigh for painful metastatic disease has first session will be today and he is going for 5 total sessions while in the hospital Hematology/oncology team consult Radiation oncology consult Further recommendation based on the clinical course Plan will be once he completes radiation therapy to discharge home with hospice and eventually transition to the hospice house Add dilaudid 1 mg q3hour for pain The impression and plan of care has been dictated by Gia Novak, Nurse Practitioner as directed. Dr. Perla MD I have performed a history and physical examination and medical decision making of this patient, discussed the same with the dictator, and agree with the dictators assessment and plan as written, documented as a scribe. Based on total visit time, I have performed more than 50% of this visit. Objective - Vital Signs Vital signs: Vital Signs Temp 98.1 F 11/25/24 07:37 Pulse 117 H 11/25/24 08:00 Resp 17 11/25/24 07:37 BP 97/59 11/25/24 07:37 Pulse Ox 95 11/25/24 07:37 FiO2 Intake & Output 11/24/24 11/25/24 11/25/24 18:59 06:59 18:59 Intake Total 850 118 118 Output Total 600 Balance 850 -482 118 Weight 65.771 kg Intake: Intake, IV Titration 850 Amount Dextrose 5%-0.9% NaCl 1, 750 000 ml @ 75 mls/hr IV . [id number] Rx#:[id number] Magnesium Sulfate-D5w Pmx 100 1 gm In Dextrose/Water 1 100ml.bag @ 100 mls/hr IVPB ONCE ONE Rx#: [id number] Oral 118 118 Output: Urine 600 Other: Voiding Method Urinal # Bowel Movements 1 - Labs CBC & Chem 7: 11/24/24 04:31 11/24/24 04:31 Assessment and Plan Time with Patient: Less than 30
[2024-11-25] MEDS: HYDROmorphone 1 MG/ML 1 ML SYRINGE IVP PRN (15:22)
[2024-11-26] MEDS: HYDROmorphone 1 MG/ML 1 ML SYRINGE IVP STA (11:42)
--- NOTE | 2024-11-26 13:21 | P.PN ---
Subjective Progress Note Date: 11/26/24 This is a pleasant 63 years old male with past medical history of multiple medical problems as below Patient was diagnosed with prostate cancer last year and he was started with chemotherapy and finished his treatment by the end of last year and then because of his good tolerance his oncologist Dr. Webster extended this treatment for another 2 cycles Presents now because of generalized weakness and hypotension Patient has been having pain for about 1 month he is pain mainly in the right groin extending to the right leg and right knee. He has difficulty moving of his right lower extremity because of this. Comparably his left side with no such problem Also complains from feet numbness However patient denied chest pain or dyspnea. No abdominal pain or vomiting. He feels constipated from pain medication. No specific urology symptoms or urinary signs symptoms 11/20 Patient awake alert Still with right thigh pain and other sites. He plan to get radiotherapy. Probably on Saturday He has some constipation but he does not want more bowel regimen for now 11/21 Patient clinically the same Still complaining from right hip and femur pain about 9/10 He is able to tolerate diet, average appetite Unable to ambulate because of his pain and condition Eliquis on hold. Patient refused subcu heparin Plan for radiotherapy possibly on Wednesday 11/22 Patient was hypotensive received a bolus of Normal Saline and placed on normal saline fusion at 75 mL/h He remains asymptomatic He still complaining from right thigh pain pending radiotherapy Patient evaluated today on the medical floor. He went for radiation mapping today with plans to start radiation therapy to bony met of the femur today with plans for 5 days total. Patient continues to report pain level 7/10. He is still undecided about DC planning but leaning towards home with hospice with eventual transition to hospice house in [place]. This plan will depend on his improvement with radiation therapy over the next 5 days. He has not had a BM in a few days, has normoactive bowel sounds and abdomen is soft and nontender. Labs today reveal white blood cell count 10.58, hgb 8.6, sodium 140, potassium 4.1, BUN 5.6, creatinine 0.4. calcium 8.3. He is on D5 NS at 75 mls/hr. 11/24/2024 Patient evaluated in follow-up in the medical floor. 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 Labs today reveal a hemoglobin level of 8.4, sodium of 140, BUN of 3.9 creatinine 0.4 magnesium 1.7. Blood pressure marginal 92/65. He states he has not had a BM in quite a few days. 11/25/2024 Patient is evaluated in follow-up in the medical floor. He is continuing to report significant discomfort to his right leg because of the bony bites. He went for mapping for radiation therapy however had to be redone and today will be his actual first session of radiation therapy. He is concerned with his pain management during his radiation sessions. He was given MiraLAX and has had a large bowel movement yesterday. Magnesium 1.8 today 11/26/2024 Patient is evaluated in follow-up in the medical floor. He is currently pending radiation therapy today. We will increase his Dilaudid 2 mg IV push once before radiation so he can tolerate the procedure better. Once he completes 5 days of radiation he will discharge home with hospice. He has moved his bowels. Review of Systems Constitutional: Denied any fatigue denied any fever. Cardio vascular: denied any chest pain, palpitations Gastrointestinal: denied any nausea, vomiting, diarrhea Pulmonary: Denied any shortness of breath cough Neurologic denied any new focal deficits All inpatient medications were reviewed and appropriate changes in these medic ations as dictated in the interval history and assessment and plan. PHYSICAL EXAMINATION: GENERAL: The patient is alert and oriented x3, not in any acute distress. Well developed, well nourished. HEENT: Pupils are round and equally reacting to light. EOMI. No scleral icterus. No conjunctival pallor. Normocephalic, atraumatic. No pharyngeal erythema. No thyromegaly. CARDIOVASCULAR: S1 and S2 present. No murmurs, rubs, or gallops. PULMONARY: Chest is clear to auscultation, no wheezing or crackles. ABDOMEN: Soft, nontender, nondistended, normoactive bowel sounds. No palpable organomegaly. MUSCULOSKELETAL: No joint swelling or deformity. EXTREMITIES: No cyanosis, clubbing, or pedal edema. Reports pelvic and right thigh pain. NEUROLOGICAL: Gross neurological examination did not reveal any focal deficits. SKIN: No rashes. Assessment Right hip pain and right thigh pain most likely related to metastatic disease to the bone Constipation Prostate cancer s/p chemotherapy and radiotherapy Generalized weakness Hypotension Atrial fibrillation Hypertension Hyperlipidemia Transaminitis GI prophylaxis: Protonix DVT prophylaxis: Subcu heparin Full Code Plan Add midodrine Add miralax and lactulose Continue with pain management Continue with encouraging hydration Continue radiotherapy to the right thigh for painful metastatic disease has first session will be today and he is going for 5 total sessions while in the hospital Hematology/oncology team consult Radiation oncology consult Further recommendation based on the clinical course Plan will be once he completes radiation therapy to discharge home with hospice and eventually transition to the hospice house Add dilaudid 1 mg q3hour for pain The impression and plan of care has been dictated by Gia Novak, Nurse Practitioner as directed. Dr. Perla MD I have performed a history and physical examination and medical decision making of this patient, discussed the same with the dictator, and agree with the dictators assessment and plan as written, documented as a scribe. Based on total visit time, I have performed more than 50% of this visit. Objective - Vital Signs Vital signs: Vital Signs Temp 98.0 F 11/26/24 07:11 Pulse 103 H 11/26/24 08:00 Resp 16 11/26/24 07:11 BP 101/64 11/26/24 07:11 Pulse Ox 95 11/26/24 07:11 FiO2 Intake & Output 11/25/24 11/26/24 11/26/24 18:59 06:59 18:59 Intake Total 118 Output Total 510 680 300 Balance -392 -680 -300 Intake: Oral 118 Output: Urine 510 680 300 Other: Voiding Method Urinal # Voids 2 2 # Bowel Movements 1 1 2 - Labs CBC & Chem 7: 11/24/24 04:31 11/24/24 04:31 Assessment and Plan Time with Patient: Less than 30
[2024-11-27] MEDS: LACTULOSE 20 GM/30 ML CUP PO PRN (08:13)
[2024-11-27 08:22] LABS: Basophils # (A) 0.06 X 10*3/uL (0.00-0.10); Basophils % (A) 0.7 %; Eosinophils # (A) 0.15 X 10*3/uL (0.04-0.35); Eosinophils % (A) 1.7 %; Lymphocytes # (A) 0.66 X 10*3/uL (0.90-5.00); Lymphocytes % (A) 7.7 %; MCH 29.9 pg (27.0-32.0); MCV 99.7 FL (80.0-97.0); Mean Platelet Volume 8.7 FL (9.5-12.2); Monocytes # (A) 1.06 X 10*3/uL (0.20-1.00); Monocytes % (A) 12.3 %; NRBC Per 100 WBC 0 X 10*3/uL (0.00-0.01); Neutrophils # (A) 6.57 X 10*3/uL (1.80-7.70); Neutrophils % (A) 76.6 %; Platelet Count 409 X 10*3/uL (140-440); RBC 3.01 X 10*6/uL (4.40-5.60); RDW 17.2 % (11.5-14.5); WBC 8.59 X 10*3/uL (4.50-10.00)
[2024-11-27 08:30] LABS: BUN/Creat Ratio <8.75 Ratio (12.00-20.00); Blood Urea Nitrogen <3.5 mg/dL (9.0-27.0); Calcium 8.1 mg/dL (8.7-10.3); Carbon Dioxide 23.6 mmol/L (21.6-31.8); Chloride 106 mmol/L (96-109); Glucose 83 mg/dL (70-110); Magnesium 2.1 mg/dL (1.5-2.4); Potassium 3.7 mmol/L (3.5-5.5); Sodium 142 mmol/L (135-145)
[2024-11-27] MEDS: HYDROmorphone 1 MG/ML 1 ML SYRINGE IVP ONE (14:39)
--- NOTE | 2024-11-28 09:21 | P.PN ---
Subjective Progress Note Date: 11/27/24 This is a pleasant 63 years old male with past medical history of multiple medical problems as below Patient was diagnosed with prostate cancer last year and he was started with chemotherapy and finished his treatment by the end of last year and then because of his good tolerance his oncologist Dr. Webster extended this treatment for another 2 cycles Presents now because of generalized weakness and hypotension Patient has been having pain for about 1 month he is pain mainly in the right groin extending to the right leg and right knee. He has difficulty moving of his right lower extremity because of this. Comparably his left side with no such problem Also complains from feet numbness However patient denied chest pain or dyspnea. No abdominal pain or vomiting. He feels constipated from pain medication. No specific urology symptoms or urinary signs symptoms 11/20 Patient awake alert Still with right thigh pain and other sites. He plan to get radiotherapy. Probably on Saturday He has some constipation but he does not want more bowel regimen for now 11/21 Patient clinically the same Still complaining from right hip and femur pain about 9/10 He is able to tolerate diet, average appetite Unable to ambulate because of his pain and condition Eliquis on hold. Patient refused subcu heparin Plan for radiotherapy possibly on Wednesday 11/22 Patient was hypotensive received a bolus of Normal Saline and placed on normal saline fusion at 75 mL/h He remains asymptomatic He still complaining from right thigh pain pending radiotherapy Patient evaluated today on the medical floor. He went for radiation mapping today with plans to start radiation therapy to bony met of the femur today with plans for 5 days total. Patient continues to report pain level 7/10. He is still undecided about DC planning but leaning towards home with hospice with eventual transition to hospice house in [place]. This plan will depend on his improvement with radiation therapy over the next 5 days. He has not had a BM in a few days, has normoactive bowel sounds and abdomen is soft and nontender. Labs today reveal white blood cell count 10.58, hgb 8.6, sodium 140, potassium 4.1, BUN 5.6, creatinine 0.4. calcium 8.3. He is on D5 NS at 75 mls/hr. 11/24/2024 Patient evaluated in follow-up in the medical floor. 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 Labs today reveal a hemoglobin level of 8.4, sodium of 140, BUN of 3.9 creatinine 0.4 magnesium 1.7. Blood pressure marginal 92/65. He states he has not had a BM in quite a few days. 11/25/2024 Patient is evaluated in follow-up in the medical floor. He is continuing to report significant discomfort to his right leg because of the bony bites. He went for mapping for radiation therapy however had to be redone and today will be his actual first session of radiation therapy. He is concerned with his pain management during his radiation sessions. He was given MiraLAX and has had a large bowel movement yesterday. Magnesium 1.8 today 11/26/2024 Patient is evaluated in follow-up in the medical floor. He is currently pending radiation therapy today. We will increase his Dilaudid 2 mg IV push once before radiation so he can tolerate the procedure better. Once he completes 5 days of radiation he will discharge home with hospice. He has moved his bowels. 11/27/2024 Patient seen in follow-up today continues on radiation therapy with radiation oncology following. Patient continues to have pain and plan remains the same to return home with [facility] services. Will discuss further with radiation oncology regarding treatment plan overall as patient is expected to receive 5 treatments prior to discharge. Will continue current pain regimen and discussed with patient along with nursing staff about receiving additional dose of Dilaudid prior to radiation as he has more pain with the positioning. Plan for 2 more doses of radiation next week and discussion of discharge planning to home with hospice and possible hospice house. Patient is afebrile with no reports of chest pain or shortness of breath. Patient has been tolerating diet with no reported nausea or vomiting. Continue supportive care Review of Systems Constitutional: Denied any fatigue denied any fever. Cardio vascular: denied any chest pain, palpitations Gastrointestinal: denied any nausea, vomiting, diarrhea Pulmonary: Denied any shortness of breath cough Neurologic denied any new focal deficits All inpatient medications were reviewed and appropriate changes in these medications as dictated in the interval history and assessment and plan. PHYSICAL EXAMINATION: GENERAL: The patient is alert and oriented x3, not in any acute distress. Well developed, well nourished. HEENT: Pupils are round and equally reacting to light. EOMI. No scleral icterus. No conjunctival pallor. Normocephalic, atraumatic. No pharyngeal erythema. No thyromegaly. CARDIOVASCULAR: S1 and S2 present. No murmurs, rubs, or gallops. PULMONARY: Chest is clear to auscultation, no wheezing or crackles. ABDOMEN: Soft, nontender, nondistended, normoactive bowel sounds. No palpable organomegaly. MUSCULOSKELETAL: No joint swelling or deformity. EXTREMITIES: No cyanosis, clubbing, or pedal edema. Reports pelvic and right thigh pain. NEUROLOGICAL: Gross neurological examination did not reveal any focal deficits. diffusely weak SKIN: No rashes. Assessment: Right hip pain and right thigh pain most likely related to metastatic disease to the bone, undergoing palliative radiation therapy and is scheduled for 2 more doses on Saturday/Saturday of next week Constipation, continue bowel regimen Prostate cancer s/p chemotherapy and radiotherapy Generalized weakness Hypotension Atrial fibrillation Hypertension Hyperlipidemia Transaminitis GI prophylaxis: Protonix DVT prophylaxis: Subcu heparin No Code Plan: Continue midodrine Add miralax and lactulose and continue with current bowel regimen adjust accordingly Continue with pain management. Agreeable to receive increased dosing of Dilaudid prior to radiation treatment as patient is having increasing pain while attempting to undergo treatment patient with the positioning Continue with encouraging hydration Continue radiotherapy to the right thigh for painful metastatic disease. 2 sessions remaining on Saturday/Saturday next week and then will discuss with case management regarding discharge planning to home with hospice Hematology/oncology team following as needed Further recommendation based on the clinical course Plan will be once he completes radiation therapy to discharge home with hospice and eventually transition to the hospice house Overall prognosis is poor and guarded The impression and plan of care has been dictated by Nurse Enmanuel Lucas as directed. Dr. Jeannette MD I have performed a history and examination and MDM of this patient, discussed the same with the dictator, and agree with the dictator's assessment and plan a s written ,documented as a scribe. Based on total visit time, I have performed more than 50% of the visit. Objective - Vital Signs Vital signs: Vital Signs Temp 97.8 F 11/27/24 08:21 Pulse 114 H 11/27/24 08:21 Resp 17 11/27/24 08:21 BP 100/66 11/27/24 08:21 Pulse Ox 97 11/27/24 08:21 FiO2 Intake & Output 11/26/24 11/27/2425 18:59 06:59 18:59 Intake Total 100 Output Total 300 850 Balance -200 -850 Intake: Oral 100 Output: Urine 300 850 Other: Voiding Method Urinal # Bowel Movements 2 - Labs CBC & Chem 7: 11/27/24 03:12 11/27/24 03:12 Labs: Abnormal Lab Results - Last 24 Hours (Table) 11/27/24 11/27/24 Range/Units 03:12 03:12 RBC 3.01 L (4.40-5.60) X 10*6/uL Hgb 9.0 L (13.0-17.0) g/dL Hct 30.0 L (39.6-50.0) % MCV 99.7 H (80.0-97.0) FL MCHC 30.0 L (32.0-37.0) g/dL RDW 17.2 H (11.5-14.5) % MPV 8.7 L (9.5-12.2) FL Immature Gran # 0.09 H (0.00-0.04) X 10*3/uL Lymphocytes # 0.66 L (0.90-5.00) X 10*3/uL Monocytes # 1.06 H (0.20-1.00) X 10*3/uL Anion Gap 12.40 H (4.00-12.00) mmol/L BUN <3.5 L (9.0-27.0) mg/dL Creatinine 0.4 L (0.6-1.5) mg/dL BUN/Creatinine Ratio <8.75 L (12.00-20.00) Ratio Calcium 8.1 L (8.7-10.3) mg/dL
--- NOTE | 2024-11-29 06:51 | P.PN ---
Subjective Progress Note Date: 11/28/24 This is a pleasant 63 years old male with past medical history of multiple medical problems as below Patient was diagnosed with prostate cancer last year and he was started with chemotherapy and finished his treatment by the end of last year and then because of his good tolerance his oncologist Dr. Webster extended this treatment for another 2 cycles Presents now because of generalized weakness and hypotension Patient has been having pain for about 1 month he is pain mainly in the right groin extending to the right leg and right knee. He has difficulty moving of his right lower extremity because of this. Comparably his left side with no such problem Also complains from feet numbness However patient denied chest pain or dyspnea. No abdominal pain or vomiting. He feels constipated from pain medication. No specific urology symptoms or urinary signs symptoms 11/20 Patient awake alert Still with right thigh pain and other sites. He plan to get radiotherapy. Probably on Saturday He has some constipation but he does not want more bowel regimen for now 11/21 Patient clinically the same Still complaining from right hip and femur pain about 9/10 He is able to tolerate diet, average appetite Unable to ambulate because of his pain and condition Eliquis on hold. Patient refused subcu heparin Plan for radiotherapy possibly on Wednesday 11/22 Patient was hypotensive received a bolus of Normal Saline and placed on normal saline fusion at 75 mL/h He remains asymptomatic He still complaining from right thigh pain pending radiotherapy Patient evaluated today on the medical floor. He went for radiation mapping today with plans to start radiation therapy to bony met of the femur today with plans for 5 days total. Patient continues to report pain level 7/10. He is still undecided about DC planning but leaning towards home with hospice with eventual transition to hospice house in [place]. This plan will depend on his improvement with radiation therapy over the next 5 days. He has not had a BM in a few days, has normoactive bowel sounds and abdomen is soft and nontender. Labs today reveal white blood cell count 10.58, hgb 8.6, sodium 140, potassium 4.1, BUN 5.6, creatinine 0.4. calcium 8.3. He is on D5 NS at 75 mls/hr. 11/24/2024 Patient evaluated in follow-up in the medical floor. 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 Labs today reveal a hemoglobin level of 8.4, sodium of 140, BUN of 3.9 creatinine 0.4 magnesium 1.7. Blood pressure marginal 92/65. He states he has not had a BM in quite a few days. 11/25/2024 Patient is evaluated in follow-up in the medical floor. He is continuing to report significant discomfort to his right leg because of the bony bites. He went for mapping for radiation therapy however had to be redone and today will be his actual first session of radiation therapy. He is concerned with his pain management during his radiation sessions. He was given MiraLAX and has had a large bowel movement yesterday. Magnesium 1.8 today 11/26/2024 Patient is evaluated in follow-up in the medical floor. He is currently pending radiation therapy today. We will increase his Dilaudid 2 mg IV push once before radiation so he can tolerate the procedure better. Once he completes 5 days of radiation he will discharge home with hospice. He has moved his bowels. 11/27/2024 Patient seen in follow-up today continues on radiation therapy with radiation oncology following. Patient continues to have pain and plan remains the same to return home with [facility] services. Will discuss further with radiation oncology regarding treatment plan overall as patient is expected to receive 5 treatments prior to discharge. Will continue current pain regimen and discussed with patient along with nursing staff about receiving additional dose of Dilaudid prior to radiation as he has more pain with the positioning. Plan for 2 more doses of radiation next week and discussion of discharge planning to home with hospice and possible hospice house. Patient is afebrile with no reports of chest pain or shortness of breath. Patient has been tolerating diet with no reported nausea or vomiting. Continue supportive care 11/28/2024 Patient is seen in follow-up today continues to report significant pain and is maintained on Dilaudid along with [place]. Discussed possibly adding Cymbalta or Lyrica and patient reports had Lyrica previously with no relief. Will continue current regimen. Plan is for resumption of radiation therapy on the lower extremity for palliative purposes on Saturday and Saturday with possible discharge planning home with hospice versus the hospice house. Continue current pain regimen and will add additional doses of Dilaudid prior to radiation therapy as patient is having difficulty tolerating the positioning during therapy. Blood pressures are soft although they have been consistently and patient is asymptomatic. Continue supportive care. Patient currently denies any chest pain or shortness of breath. Patient has been tolerating diet thus far. Review of Systems Constitutional: Denied any fatigue denied any fever. Cardio vascular: denied any chest pain, palpitations Gastrointestinal: denied any nausea, vomiting, diarrhea Pulmonary: Denied any shortness of breath cough Neurologic denied any new focal deficits All inpatient medications were reviewed and appropriate changes in these medications as dictated in the interval history and assessment and plan. PHYSICAL EXAMINATION: GENERAL: The patient is alert and oriented x3, not in any acute distress. Well developed, well nourished. HEENT: Pupils are round and equally reacting to light. EOMI. No scleral icterus. No conjunctival pallor. Normocephalic, atraumatic. No pharyngeal erythema. No thyromegaly. CARDIOVASCULAR: S1 and S2 present. No murmurs, rubs, or gallops. PULMONARY: Chest is clear to auscultation, no wheezing or crackles. ABDOMEN: Soft, nontender, nondistended, normoactive bowel sounds. No palpable organomegaly. MUSCULOSKELETAL: No joint swelling or deformity. EXTREMITIES: No cyanosis, clubbing, or pedal edema. Reports pelvic and right thigh pain. NEUROLOGICAL: Gross neurological examination did not reveal any focal deficits. diffusely weak SKIN: No rashes. Assessment: Right hip pain and right thigh pain most likely related to metastatic disease to the bone, undergoing palliative radiation therapy and is scheduled for 2 more doses on Saturday/Saturday of next week Constipation, continue bowel regimen Prostate cancer s/p chemotherapy and radiotherapy Generalized weakness Hypotension Atrial fibrillation Hypertension Hyperlipidemia Transaminitis GI prophylaxis: Protonix DVT prophylaxis: Subcu heparin No Code Plan: Continue midodrine Continue bowel regimen with miralax and lactulose and continue to adjust accordingly Continue with pain management. Agreeable to receive increased dosing of Dilaudid prior to radiation treatment as patient is having increasing pain while attempting to undergo treatment patient with the positioning Continue with encouraging hydration Continue radiotherapy to the right thigh for painful metastatic disease. 2 sessions remaining on Saturday/Saturday next week and then will discuss with case management regarding discharge planning to home with hospice Hematology/oncology team following as needed Further recommendation based on the clinical course Plan will be once he completes radiation therapy to discharge home with hospice and eventually transition to the hospice house Overall prognosis is poor and guarded The impression and plan of care has been dictated as a scribe by Angelica Donaldson, Nurse Practitioner as directed. Dr. Jeannette MD I have performed a history and examination and MDM of this patient, discussed the same with the dictator, and agree with the dictator's assessment and plan as written ,documented as a scribe. Based on total visit time, I have performed more than 50% of the visit. Objective - Vital Signs Vital signs: Vital Signs Temp 97.8 F 11/28/24 08:00 Pulse 98 11/28/24 08:00 Resp 15 11/28/24 08:00 BP 104/69 11/28/24 08:00 Pulse Ox 96 11/28/24 08:00 FiO2 Intake & Output 11/27/24 11/28/24 11/28/24 18:59 06:59 18:59 Intake Total 500 540 Output Total 525 300 Balance -25 240 Intake: Oral 500 540 Output: Urine 525 300 Other: Voiding Method Urinal Urinal - Labs CBC & Chem 7: 11/27/24 03:12 11/27/24 03:12
[2024-11-29] MEDS ORDERED: HYDROmorphone 1 MG/ML 1 ML SYRINGE IVP PRN (22:42)
--- NOTE | 2024-11-29 22:42 | P.PN ---
Subjective Progress Note Date: 11/29/24 This is a pleasant 63 years old male with past medical history of multiple medical problems as below Patient was diagnosed with prostate cancer last year and he was started with chemotherapy and finished his treatment by the end of last year and then because of his good tolerance his oncologist Dr. Webster extended this treatment for another 2 cycles Presents now because of generalized weakness and hypotension Patient has been having pain for about 1 month he is pain mainly in the right groin extending to the right leg and right knee. He has difficulty moving of his right lower extremity because of this. Comparably his left side with no such problem Also complains from feet numbness However patient denied chest pain or dyspnea. No abdominal pain or vomiting. He feels constipated from pain medication. No specific urology symptoms or urinary signs symptoms 11/20 Patient awake alert Still with right thigh pain and other sites. He plan to get radiotherapy. Probably on Saturday He has some constipation but he does not want more bowel regimen for now 11/21 Patient clinically the same Still complaining from right hip and femur pain about 9/10 He is able to tolerate diet, average appetite Unable to ambulate because of his pain and condition Eliquis on hold. Patient refused subcu heparin Plan for radiotherapy possibly on Wednesday 11/22 Patient was hypotensive received a bolus of Normal Saline and placed on normal saline fusion at 75 mL/h He remains asymptomatic He still complaining from right thigh pain pending radiotherapy Patient evaluated today on the medical floor. He went for radiation mapping today with plans to start radiation therapy to bony met of the femur today with plans for 5 days total. Patient continues to report pain level 7/10. He is still undecided about DC planning but leaning towards home with hospice with eventual transition to hospice house in [place]. This plan will depend on his improvement with radiation therapy over the next 5 days. He has not had a BM in a few days, has normoactive bowel sounds and abdomen is soft and nontender. Labs today reveal white blood cell count 10.58, hgb 8.6, sodium 140, potassium 4.1, BUN 5.6, creatinine 0.4. calcium 8.3. He is on D5 NS at 75 mls/hr. 11/24/2024 Patient evaluated in follow-up in the medical floor. 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 Labs today reveal a hemoglobin level of 8.4, sodium of 140, BUN of 3.9 creatinine 0.4 magnesium 1.7. Blood pressure marginal 92/65. He states he has not had a BM in quite a few days. 11/25/2024 Patient is evaluated in follow-up in the medical floor. He is continuing to report significant discomfort to his right leg because of the bony bites. He went for mapping for radiation therapy however had to be redone and today will be his actual first session of radiation therapy. He is concerned with his pain management during his radiation sessions. He was given MiraLAX and has had a large bowel movement yesterday. Magnesium 1.8 today 11/26/2024 Patient is evaluated in follow-up in the medical floor. He is currently pending radiation therapy today. We will increase his Dilaudid 2 mg IV push once before radiation so he can tolerate the procedure better. Once he completes 5 days of radiation he will discharge home with hospice. He has moved his bowels. 11/27/2024 Patient seen in follow-up today continues on radiation therapy with radiation oncology following. Patient continues to have pain and plan remains the same to return home with [facility] services. Will discuss further with radiation oncology regarding treatment plan overall as patient is expected to receive 5 treatments prior to discharge. Will continue current pain regimen and discussed with patient along with nursing staff about receiving additional dose of Dilaudid prior to radiation as he has more pain with the positioning. Plan for 2 more doses of radiation next week and discussion of discharge planning to home with hospice and possible hospice house. Patient is afebrile with no reports of chest pain or shortness of breath. Patient has been tolerating diet with no reported nausea or vomiting. Continue supportive care 11/28/2024 Patient is seen in follow-up today continues to report significant pain and is maintained on Dilaudid along with [place]. Discussed possibly adding Cymbalta or Lyrica and patient reports had Lyrica previously with no relief. Will continue current regimen. Plan is for resumption of radiation therapy on the lower extremity for palliative purposes on Saturday and Saturday with possible discharge planning home with hospice versus the hospice house. Continue current pain regimen and will add additional doses of Dilaudid prior to radiation therapy as patient is having difficulty tolerating the positioning during therapy. Blood pressures are soft although they have been consistently and patient is asymptomatic. Continue supportive care. Patient currently denies any chest pain or shortness of breath. Patient has been tolerating diet thus far. 11/29/2024 Patient is seen in follow-up today with no acute overnight issues noted. Patient is continued on pain regimen and will continue at this time. Will discuss further with oncology as patient remains on Dilaudid. Plan is for 2 more sessions of radiation treatment on Saturday and Saturday and then possible home with hospice after Saturday's radiation session. Will discuss with hospice along with oncology regarding pain management for discharge planning. Patient is afebrile with no reported chest pain or shortness of breath. Review of Systems Constitutional: Denied any fatigue denied any fever. Cardio vascular: denied any chest pain, palpitations Gastrointestinal: denied any nausea, vomiting, diarrhea Pulmonary: Denied any shortness of breath cough Neurologic denied any new focal deficits, diffusely weak and unable to ambulate due to the pain in the right leg All inpatient medications were reviewed and appropriate changes in these medications as dictated in the interval history and assessment and plan. PHYSICAL EXAMINATION: GENERAL: The patient is alert and oriented x3, not in any acute distress. Well developed, ill-appearing, appears older than stated age HEENT: Pupils are round and equally reacting to light. EOMI. No scleral icterus. No conjunctival pallor. Normocephalic, atraumatic. No pharyngeal erythema. No thyromegaly. CARDIOVASCULAR: S1 and S2 present. No murmurs, rubs, or gallops. PULMONARY: Chest is clear to auscultation, no wheezing or crackles. ABDOMEN: Soft, nontender, nondistended, normoactive bowel sounds. No palpable organomegaly. MUSCULOSKELETAL: No joint swelling or deformity. EXTREMITIES: No cyanosis, clubbing, or pedal edema. Reports pelvic and right thigh pain on palpation. NEUROLOGICAL: Gross neurological examination did not reveal any focal deficits. diffusely weak SKIN: No rashes. Assessment: Right hip pain and right thigh pain most likely related to metastatic disease to the bone, undergoing palliative radiation therapy and is scheduled for 2 more doses on Saturday/Saturday of next week Constipation, continue bowel regimen Prostate cancer s/p chemotherapy and radiotherapy Generalized weakness Hypotension Atrial fibrillation Hypertension Hyperlipidemia Transaminitis GI prophylaxis: Protonix DVT prophylaxis: Subcu heparin No Code Plan: Continue midodrine Continue bowel regimen with miralax and lactulose and continue to adjust accordingly Continue with pain management. Agreeable to receive increased dosing of Dilaudid prior to radiation treatment as patient is having increasing pain while attempting to undergo treatment patient with the positioning Continue with encouraging hydration Continue radiotherapy to the right thigh for painful metastatic disease. 2 sessions remaining on Saturday/Saturday next week and then will discuss with case management regarding discharge planning to home with hospice Hematology/oncology team following as needed Further recommendation based on the clinical course Plan will be once he completes radiation therapy to discharge home with hospice and eventually transition to the hospice house Overall prognosis is poor and guarded The impression and plan of care has been dictated as a scribe by Angelica Donaldson, Nurse Practitioner as directed. Dr. Jeannette MD I have performed a history and examination and MDM of this patient, discussed the same with the dictator, and agree with the dictator's assessment and plan as written ,documented as a scribe. Based on total visit time, I have performed more than 50% of the visit. Objective - Vital Signs Vital signs: Vital Signs Temp 97.7 F 11/29/24 19:39 Pulse 97 11/29/24 19:39 Resp 16 11/29/24 19:39 BP 109/75 11/29/24 19:39 Pulse Ox 93 L 11/29/24 19:39 FiO2 Intake & Output 11/29/24 11/29/24 11/30/24 06:59 18:59 06:59 Intake Total 540 480 Output Total 600 300 Balance -60 180 Intake: Oral 540 480 Output: Urine 600 300 Other: Voiding Method Urinal - Labs CBC & Chem 7: 11/27/24 03:12 11/27/24 03:12
[2024-11-30] MEDS: NYSTATIN 100,000 UNIT/GM POWD 15 GM TOPICAL SCH (12:08)
[2024-11-30] MEDS: HYDROmorphone 1 MG/ML 1 ML SYRINGE IVP PRN ×3 (12:09→12:25)
[2024-11-30] MEDS ORDERED: HYDROmorphone 2 MG/ML 1 ML SYRINGE IVP PRN (12:16)
--- NOTE | 2024-12-01 05:58 | P.PN ---
Subjective Progress Note Date: 11/30/24 This is a pleasant 63 years old male with past medical history of multiple medical problems as below Patient was diagnosed with prostate cancer last year and he was started with chemotherapy and finished his treatment by the end of last year and then because of his good tolerance his oncologist Dr. Webster extended this treatment for another 2 cycles Presents now because of generalized weakness and hypotension Patient has been having pain for about 1 month he is pain mainly in the right groin extending to the right leg and right knee. He has difficulty moving of his right lower extremity because of this. Comparably his left side with no such problem Also complains from feet numbness However patient denied chest pain or dyspnea. No abdominal pain or vomiting. He feels constipated from pain medication. No specific urology symptoms or urinary signs symptoms 11/20 Patient awake alert Still with right thigh pain and other sites. He plan to get radiotherapy. Probably on Saturday He has some constipation but he does not want more bowel regimen for now 11/21 Patient clinically the same Still complaining from right hip and femur pain about 9/10 He is able to tolerate diet, average appetite Unable to ambulate because of his pain and condition Eliquis on hold. Patient refused subcu heparin Plan for radiotherapy possibly on Wednesday 11/22 Patient was hypotensive received a bolus of Normal Saline and placed on normal saline fusion at 75 mL/h He remains asymptomatic He still complaining from right thigh pain pending radiotherapy Patient evaluated today on the medical floor. He went for radiation mapping today with plans to start radiation therapy to bony met of the femur today with plans for 5 days total. Patient continues to report pain level 7/10. He is still undecided about DC planning but leaning towards home with hospice with eventual transition to hospice house in [place]. This plan will depend on his improvement with radiation therapy over the next 5 days. He has not had a BM in a few days, has normoactive bowel sounds and abdomen is soft and nontender. Labs today reveal white blood cell count 10.58, hgb 8.6, sodium 140, potassium 4.1, BUN 5.6, creatinine 0.4. calcium 8.3. He is on D5 NS at 75 mls/hr. 11/24/2024 Patient evaluated in follow-up in the medical floor. 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 Labs today reveal a hemoglobin level of 8.4, sodium of 140, BUN of 3.9 creatinine 0.4 magnesium 1.7. Blood pressure marginal 92/65. He states he has not had a BM in quite a few days. 11/25/2024 Patient is evaluated in follow-up in the medical floor. He is continuing to report significant discomfort to his right leg because of the bony bites. He went for mapping for radiation therapy however had to be redone and today will be his actual first session of radiation therapy. He is concerned with his pain management during his radiation sessions. He was given MiraLAX and has had a large bowel movement yesterday. Magnesium 1.8 today 11/26/2024 Patient is evaluated in follow-up in the medical floor. He is currently pending radiation therapy today. We will increase his Dilaudid 2 mg IV push once before radiation so he can tolerate the procedure better. Once he completes 5 days of radiation he will discharge home with hospice. He has moved his bowels. 11/27/2024 Patient seen in follow-up today continues on radiation therapy with radiation oncology following. Patient continues to have pain and plan remains the same to return home with [facility] services. Will discuss further with radiation oncology regarding treatment plan overall as patient is expected to receive 5 treatments prior to discharge. Will continue current pain regimen and discussed with patient along with nursing staff about receiving additional dose of Dilaudid prior to radiation as he has more pain with the positioning. Plan for 2 more doses of radiation next week and discussion of discharge planning to home with hospice and possible hospice house. Patient is afebrile with no reports of chest pain or shortness of breath. Patient has been tolerating diet with no reported nausea or vomiting. Continue supportive care 11/28/2024 Patient is seen in follow-up today continues to report significant pain and is maintained on Dilaudid along with [place]. Discussed possibly adding Cymbalta or Lyrica and patient reports had Lyrica previously with no relief. Will continue current regimen. Plan is for resumption of radiation therapy on the lower extremity for palliative purposes on Saturday and Saturday with possible discharge planning home with hospice versus the hospice house. Continue current pain regimen and will add additional doses of Dilaudid prior to radiation therapy as patient is having difficulty tolerating the positioning during therapy. Blood pressures are soft although they have been consistently and patient is asymptomatic. Continue supportive care. Patient currently denies any chest pain or shortness of breath. Patient has been tolerating diet thus far. 11/29/2024 Patient is seen in follow-up today with no acute overnight issues noted. Patient is continued on pain regimen and will continue at this time. Will discuss further with oncology as patient remains on Dilaudid. Plan is for 2 more sessions of radiation treatment on Saturday and Saturday and then possible home with hospice after Saturday's radiation session. Will discuss with hospice along with oncology regarding pain management for discharge planning. Patient is afebrile with no reported chest pain or shortness of breath. 11/30/2024 Patient is seen in follow-up today scheduled to undergo radiation therapy again today as well as Saturday with plans on discharge planning after this with hospice. Discussed with social work/case management and arrangements are being made in the outpatient setting for equipment. Patient is extremely concerned with pain management once going home and this was discussed with hospice team. Patient is currently afebrile with no shortness of breath or chest pains noted. Patient continues with lower extremity pain and is maintained on Dilaudid. Review of Systems Constitutional: Denied any fatigue denied any fever. Cardio vascular: denied any chest pain, palpitations Gastrointestinal: denied any nausea, vomiting, diarrhea Pulmonary: Denied any shortness of breath cough Neurologic denied any new focal deficits, diffusely weak and unable to ambulate due to the pain in the right leg All inpatient medications were reviewed and appropriate changes in these medications as dictated in the interval history and assessment and plan. PHYSICAL EXAMINATION: GENERAL: The patient is alert and oriented x3, not in any acute distress. Well developed, ill-appearing, appears older than stated age HEENT: Pupils are round and equally reacting to light. EOMI. No scleral icterus. No conjunctival pallor. Normocephalic, atraumatic. No pharyngeal erythema. No thyromegaly. CARDIOVASCULAR: S1 and S2 present. No murmurs, rubs, or gallops. PULMONARY: Chest is clear to auscultation, no wheezing or crackles. ABDOMEN: Soft, nontender, nondistended, normoactive bowel sounds. No palpable organomegaly. MUSCULOSKELETAL: No joint swelling or deformity. EXTREMITIES: No cyanosis, clubbing, or pedal edema. Reports pelvic and right thigh pain on palpation. NEUROLOGICAL: Gross neurological examination did not reveal any focal deficits. diffusely weak SKIN: No rashes. Pale Assessment: Right hip pain and right thigh pain most likely related to metastatic disease to the bone, undergoing palliative radiation therapy and is scheduled for 2 more doses on Saturday/Saturday of next week Constipation, continue bowel regimen Prostate cancer s/p chemotherapy and radiotherapy Generalized weakness Hypotension Atrial fibrillation Hypertension Hyperlipidemia Transaminitis GI prophylaxis: Protonix DVT prophylaxis: Subcu heparin No Code Plan: Continue with current medication regimen along with bowel regimen scheduled as well as as needed Continue with pain management. Agreeable to receive increased dosing of Dilaudid prior to radiation treatment as patient is having increasing pain while attempting to undergo treatment patient with the positioning Continue with encouraging hydration Continue radiotherapy to the right thigh for painful metastatic disease. 2 sessions remaining including today and Saturday with social work/case management following making arrangements for discharge planning to home with hospice. Equipment is being ordered and will discuss further regarding pain management on discharge as patient is extremely concerned with this. Hematology/oncology team following as needed Further recommendation based on the clinical course Plan will be once he completes radiation therapy to discharge home with hospice and eventually transition to the hospice house Overall prognosis is poor and guarded The impression and plan of care has been dictated by Angelica Donaldson, Nurse Practitioner as directed. Dr. Andrews MD I have performed a history and examination and MDM of this patient, discussed the same with the dictator, and agree with the dictator's assessment and plan as written ,documented as a scribe. Based on total visit time, I have performed more than 50% of the visit. Objective - Vital Signs Vital signs: Vital Signs Temp 98.1 F 11/30/24 07:18 Pulse 112 H 11/30/24 08:00 Resp 17 11/30/24 07:18 BP 96/65 11/30/24 07:18 Pulse Ox 95 11/30/24 07:18 FiO2 Intake & Output 11/29/24 11/30/24 11/30/24 18:59 06:59 18:59 Intake Total 480 Output Total 300 600 Balance 180 -600 Intake: Oral 480 Output: Urine 300 600 Other: Voiding Method Urinal - Labs CBC & Chem 7: 11/27/24 03:12 11/27/24 03:12
[2024-12-01] MEDS: HYDROmorphone 1 MG/ML 1 ML SYRINGE IVP STA (15:00)
[2024-12-01 15:31] VITALS: BP 103/70; PULSE 111; RESP 16; TEMP 98
== END 2024-12-01 17:24 | disposition hospice, home (50) | DRG 543 ==
LOC: EC 10:08 → 6NMEDSUR 14:01 → OBSVTOIN 14:02 → 6NMEDSUR 15:49
PROVIDERS: ADMIT Internal Medicine; ATTEND Internal Medicine
PROC: DP091ZZ Beam Radiation of Femur using Photons 1 - 10 MeV (ICD-10-PCS; principal; 2024-11-25)
DX: C79.51 Secondary malignant neoplasm of bone (principal); C78.7 Secondary malignant neoplasm of liver and intrahepatic bile duct; Z51.5 Encounter for palliative care; J90 Pleural effusion, not elsewhere classified; C61 Malignant neoplasm of prostate; I10 Essential (primary) hypertension; I48.91 Unspecified atrial fibrillation; G89.3 Neoplasm related pain (acute) (chronic); I95.9 Hypotension, unspecified; E78.5 Hyperlipidemia, unspecified; K59.00 Constipation, unspecified; N40.1 Benign prostatic hyperplasia with lower urinary tract symptoms; R33.8 Other retention of urine; Z79.01 Long term (current) use of anticoagulants; R74.01 Elevation of levels of liver transaminase levels; Z79.891 Long term (current) use of opiate analgesic; Z79.899 Other long term (current) drug therapy; Z82.49 Family history of ischemic heart disease and other diseases of the circulatory system; Z87.891 Personal history of nicotine dependence; Z92.21 Personal history of antineoplastic chemotherapy
CPT/HCPCS: 36415; 71046; 71275; 77370; 80048; 80053; 80076; 81001; 82533; 82550; 82607; 82728; 82746; 83540; 83605; 83735; 84443; 84484; 85025; 85027; 85379; 85610; 85730; 93005; 96361; 96374; 99285